=== PATIENT | female | born 1930 | race Caucasian/White ===

== ENCOUNTER 2016-12-19 15:30 | Emergency (ER) | payer MEDICARE, BC ==
[~2016-12-19] VITALS: Ht 157.5 cm; Wt 64.0 kg
[2016-12-19 15:32] VITALS: Ht 157.5 cm; Wt 64.0 kg
[2016-12-19] MEDS ORDERED: METOPROLOL 50 MG TAB PO ONE (16:00)
[2016-12-19] MEDS ORDERED: ASPIRIN 81 MG TAB PO ONE (16:00)
[2016-12-19] MEDS ORDERED: APIX2.5T PO (16:10)
[2016-12-19] MEDS ORDERED: METO-335 PO (16:11)
[2016-12-19] MEDS ORDERED: FENO160T13 PO (16:12)
[2016-12-19] MEDS ORDERED: METF500T4 PO (16:13)
[2016-12-19] MEDS ORDERED: ASPI-664 PO (16:14)
--- NOTE | 2016-12-19 16:14 | RADRPT ---
PROCEDURE: XR Chest 1 View. CLINICAL INDICATION: Shortness of breath. Double pain. TECHNIQUE: AP view of the chest was obtained. COMPARISON: None. FINDINGS: The heart size is within normal limits. Calcified atherosclerosis is noted in the aorta. Calcified heart valve is identified. No consolidations are identified. No pneumothorax is seen. Subsegmental atelectasis is noted in the bilateral lower lobes. Osseous structures are intact. IMPRESSION: Calcified atherosclerosis in the aorta. Subsegmental atelectasis in the bilateral lower lobes. RPTAT: AA .Ja Bone MD, MD Date Time Electronically viewed and signed by .Ja Bone MD, on 12/19/2016 16:13 .P/
[2016-12-19] MEDS ORDERED: TRAV4OP25 BOTH EYES (16:15)
[2016-12-19] MEDS ORDERED: VIT1CAPS10 PO (16:16)
[2016-12-19] MEDS ORDERED: ALBU18HF INHALATION (16:18)
[2016-12-19 16:26] LABS: BASOPHIL # 0.1 10^3/ul (0.0-0.1); BASOPHILS % 0.9 % (0.0-2.0); EOSINOPHILS # 0.1 10^3/ul (0.0-0.5); EOSINOPHILS % 2.4 % (0.0-7.0); HEMATOCRIT 35.5 % (37.0-47.0); HEMOGLOBIN 10.9 g/dl (12.0-16.0); LYMPHOCYTES # 1.2 10^3/ul (0.8-2.9); LYMPHOCYTES % 21.5 % (15.0-51.0); MEAN CORPUSCULAR HEMOGLOBIN 26.7 pg (29.0-33.0); MEAN CORPUSCULAR HGB CONC 30.7 g/dl (32.0-37.0); MEAN PLATELET VOLUME 11.7 fl (7.4-10.4); MONOCYTE # 0.5 10^3/ul (0.3-0.9); MONOCYTES % 9.8 % (0.0-11.0); NEUTROPHIL # 3.5 10^3/ul (1.6-7.5); NEUTROPHILS % 65.2 % (39.0-77.0); PLATELET COUNT 274 10^3/UL (140-415); RED BLOOD COUNT 4.08 10^6/ul (4.20-5.40); RED CELL DISTRIBUTION WIDTH 15.2 % (11.5-14.5); WHITE BLOOD COUNT 5.4 10^3/ul (4.8-10.8)
[2016-12-19 16:44] LABS: INR 0.97; PROTIME 12.9 Sec (12.2-14.2)
[2016-12-19 16:47] LABS: ALBUMIN 4.5 g/dl (3.3-4.9); ALBUMIN/GLOBULIN RATIO 1.45; BILIRUBIN,INDIRECT 0.1 mg/dl (0-1.1); BILIRUBIN,TOTAL 0.1 mg/dl (0.2-1.3); CALCIUM 10.2 mg/dl (8.4-10.2); CREATININE 1.33 mg/dl (0.44-1.00); POTASSIUM 4.1 mmol/L (3.5-5.1); TOTAL PROTEIN 7.6 g/dl (6.1-8.1)
[2016-12-19 16:58] LABS: TROPONIN-I 0.089 ng/ml (0.00-0.12)
[2016-12-19] MEDS ORDERED: SOD CHLORIDE 0.9% 1,000 ML IV ONE (17:00)
--- NOTE | 2016-12-19 17:09 | ERD ---
ER Documentation Chief Complaint Chief Complaint feels her heart racing,hx of afib,has valve replaced in 2015 HPI 86-year-old woman with a history of palpitations/SVT and bovine cardiac valve replacement presents with palpitations beginning about 3 hours prior to arrival. She states she has not used her morning medications for some reason, which include metoprolol that she is prescribed to take every day. She denies chest pain or shortness of breath, no fevers or chills, no cough, no calf or leg swelling, no headache or blurry vision. Last episode was about 9 months ago. ROS All systems reviewed and are negative except as per history of present illness. Medications Home Meds Reported Medications Albuterol Sulfate* (Ventolin HFA*) 18 Gm Hfa.aer.ad, 1 PUFF INHALATION Q6H Y for NEEDED, #1 INHALER 12/19/16 Vit A/Vit C/Vit E/Zinc/Copper (Preservision Areds Softgel) 1 Each Capsule, 1 EACH PO BID, CAP 12/19/16 Travoprost* (Travatan*) 0.004%-2.5 Ml Opht, 1 DROP BOTH EYES QHS, #1 BOTTLE 12/19/16 Aspirin* (Aspirin* EC) 81 Mg Tablet.dr, 81 MG PO DAILY, TAB 12/19/16 Metformin Hcl* (Metformin Hcl*) 500 Mg Tablet, 500 MG PO WITH BREAKFAST DINNE, # 60 TAB 12/19/16 Fenofibrate, Micronized* (Fenofibrate*) 160 Mg Tablet, 160 MG PO DAILY, TAB 12/19/16 Metoprolol Succinate* (Toprol XL*) 25 Mg Tab.sr.24h, 25 MG PO DAILY, #30 TAB 12/19/16 Apixaban* (Eliquis*) 2.5 Mg Tablet, 2.5 MG PO BID, TAB 12/19/16 Allergies Allergies: Coded Allergies: Glbdoyw-Fvl-Ukj Reductase Inhibitor (Unverified Allergy, Unknown, 12/19/16 ) PMhx/Soc Cardiac valve replacement, COPD, hypertension, CAD History of Surgery: Yes (aortic valve replacement) Anesthesia Reaction: No Hx Neurological Disorder: No Hx Respiratory Disorders: No Hx Cardiac Disorders: Yes (htn) Hx Psychiatric Problems: No Hx Miscellaneous Medical Probl: No Hx Alcohol Use: No Hx Substance Use: No Hx Tobacco Use: No Smoking Status: Former smoker FmHx Family History: No diabetes Physical Exam Vitals Vital Signs Date Time Temp Pulse Resp B/P Pulse Ox O2 Delivery O2 Flow Rate FiO2 12/19/16 18:19 68 18 117/52 98 Room Air 12/19/16 16:45 65 18 125/55 98 Room Air 12/19/16 15:32 98.4 138 20 196/91 96 Physical Exam GENERAL: Well-developed, well-nourished, appears dehydrated HEENT: Dry mucous membranes, pink conjunctiva, no cervical spine tenderness or step-off deformities, no goiter, no jaundice or icterus, extraocular movements intact without pain. No submandibular induration, and no pharyngeal erythema NEURO: Alert and oriented 3, cranial nerves II through XII intact bilaterally, pupils equal round reactive to light, no focal deficits or facial asymmetry, sensation intact distally Strength 5/5 in upper and lower extremities bilaterally CARDIAC: Tachycardic and regular, no murmurs rubs or gallops LUNGS: Clear bilaterally no wheezing crackles or stridor ABDOMEN: Soft nontender, no guarding, no rigidity, no rebound, no psoas sign no obturator sign. Normoactive bowel sounds SKIN: Warm and dry to touch, no abrasions, contusions, or hematomas, no lacerations, no ecchymosis, no target lesions, and without ulcers EXTREMITIES: No clubbing cyanosis or edema, calves are bilaterally symmetrical, no Homans sign, no popliteal cord sign. Distal pulses equal and bilateral PSYCH: Normal affect without agitation or irritability Result Diagram: 12/19/16 1555 12/19/16 1555 Results 24 hrs Laboratory Tests Test 12/19/16 15:55 12/19/16 16:00 White Blood Count 5.410^3/ul Red Blood Count 4.0810^6/ul Hemoglobin 10.9g/dl Hematocrit 35.5% Mean Corpuscular Volume 87.0fl Mean Corpuscular Hemoglobin 26.7pg Mean Corpuscular Hemoglobin Concent 30.7g/dl Red Cell Distribution Width 15.2% Platelet Count 04819^3/UL Mean Platelet Volume 11.7fl Neutrophils % 65.2% Lymphocytes % 21.5% Monocytes % 9.8% Eosinophils % 2.4% Basophils % 0.9% Nucleated Red Blood Cells % 0.0/100WBC Neutrophils # 3.510^3/ul Lymphocytes # 1.210^3/ul Monocytes # 0.510^3/ul Eosinophils # 0.110^3/ul Basophils # 0.110^3/ul Nucleated Red Blood Cells # 0.010^3/ul Prothrombin Time 12.9Sec Prothrombin Time Ratio 1.0 INR International Normalized Ratio 0.97 Sodium Level 144mmol/L Potassium Level 4.1mmol/L Chloride Level 106mmol/L Carbon Dioxide Level 25mmol/L Anion Gap 17 Blood Urea Nitrogen 44mg/dl Creatinine 1.33mg/dl Glucose Level 246mg/dl Calcium Level 10.2mg/dl Total Bilirubin 0.1mg/dl Direct Bilirubin 0.00mg/dl Indirect Bilirubin 0.1mg/dl Aspartate Amino Transf (AST/SGOT) 23IU/L Alanine Aminotransferase (ALT/SGPT) 23IU/L Alkaline Phosphatase 64IU/L Troponin I 0.089ng/ml B-Type Natriuretic Peptide 1010PG/ML Total Protein 7.6g/dl Albumin 4.5g/dl Globulin 3.10g/dl Albumin/Globulin Ratio 1.45 Lipase 195U/L Urine Color STRAW Urine Clarity CLEAR Urine pH 7.0 Urine Specific [place] 1.010 Urine Ketones NEGATIVEmg/dL Urine Nitrite NEGATIVEmg/dL Urine Bilirubin NEGATIVEmg/dL Urine Urobilinogen NEGATIVEmg/dL Urine Leukocyte Esterase 1+[place]/ul Urine Microscopic RBC 1/HPF Urine Microscopic WBC 5/HPF Urine Squamous Epithelial Cells FEW/HPF Urine Bacteria FEW/HPF Urine Hemoglobin NEGATIVEmg/dL Urine Glucose 2+mg/dL Urine Total Protein NEGATIVEmg/dl Current Medications Medications (Trade) Dose Ordered Sig/Miguel Angel Route PRN Reason Start Time Stop Time Status Last Admin Dose Admin Metoprolol Tartrate (Lopressor) 50 mg ONCE ONCE PO 12/19/16 16:00 12/19/16 16:01 DC 12/19/16 16:01 Aspirin 162 mg 162 mg ONCE ONCE PO 12/19/16 16:00 12/19/16 16:01 DC 12/19/16 16:00 Sodium Chloride (NS) 1,000 ml @ 1,000 mls/hr Q1H ONCE IV 12/19/16 17:00 12/19/16 17:59 DC 12/19/16 17:02 Procedures/MDM IV line was established patient was placed on cardiac cath technician rhythm strip revealed a narrow complex tachycardia at about 200 bpm. Patient was afebrile. EKG performed, read by me revealed a supraventricular tachycardia narrow complex at 149 bpm, normal axis, no concerning ST elevations or depressions noted. I administered metoprolol 50 mg p.o. 1, as she did not use her morning metoprolol dose. Palpitations resolved immediately. EKG #2 performed, read by me revealed a normal sinus rhythm 85 bpm, normal axis , narrow QRS complex, no concerning ST elevations or depressions noted. I administered 1 L normal saline intravenously for dehydration. CBC was unremarkable, electrolytes revealed dehydration with a BUN/creatinine of 44/1.3, liver function tests are normal, troponin was negative, urinalysis negative for infection. Differential diagnoses considered, included but not limited to acute coronary syndrome, pulmonary embolism, aortic dissection, abdominal aortic aneurysm, sepsis, stroke, meningitis, encephalitis, pneumonia, appendicitis, cholecystitis , bowel obstruction, pyelonephritis, nephrolithiasis, cystitis, as well as metabolic, hematologic, and electrolyte abnormalities. As well as abscess, cellulitis, fractures, and dislocations. Patient feels much better at this time, and vital signs are normal, symptoms have improved. I did give strict instructions to return to the ED if symptoms continue or worsen, patient will otherwise follow-up with primary care physician. Patient understood instructions and agreed to plan. Disclaimer: Inadvertent spelling and grammatical errors are likely due to EHR/ dictation software use and do not reflect on the overall quality of patient care. Also, please note that the electronic time recorded on this note does not necessarily reflect the actual time of the patient encounter. Departure Diagnosis: Primary Impression: SVT (supraventricular tachycardia) Additional Impression: Dehydration Condition: PRAVEEN Zapata MD Dec 19, 2016 17:09
[2016-12-19 17:41] LABS: ADD UMIC YES; UR ASCORBIC ACID NEGATIVE (NEGATIVE); UR BACTERIA FEW /HPF (NONE SEEN); UR BILIRUBIN (Dip) NEGATIVE (NEGATIVE); UR BLOOD (Dip) NEGATIVE (NEGATIVE); UR CLARITY CLEAR (CLEAR); UR COLOR STRAW (YELLOW); UR GLUCOSE (Dip) 2+ mg/dL (NEGATIVE); UR KETONES (Dip) NEGATIVE (NEGATIVE); UR LEUKOCYTE ESTERASE (Dip) 1+ Leu/ul (NEGATIVE); UR NITRITE (Dip) NEGATIVE (NEGATIVE); UR RBC 1 /HPF (0-5); UR SQUAMOUS EPITHELIAL CELL FEW /HPF (FEW); UR TOTAL PROTEIN (Dip) NEGATIVE (NEGATIVE); UR UROBILINOGEN (Dip) NEGATIVE (NEGATIVE)
[2016-12-19 18:19] VITALS: BP 117/52; PULSE 68; RESP 18
== END 2016-12-19 18:21 | disposition home or self-care (01) ==
LOC: E/R 15:30
DX: I47.1 Supraventricular tachycardia (principal); R40.2252 Coma scale, best verbal response, oriented, at arrival to emergency department; E86.0 Dehydration; I10 Essential (primary) hypertension; J44.9 Chronic obstructive pulmonary disease, unspecified; I25.10 Atherosclerotic heart disease of native coronary artery without angina pectoris; R40.2142 Coma scale, eyes open, spontaneous, at arrival to emergency department; R40.2362 Coma scale, best motor response, obeys commands, at arrival to emergency department; Z79.82 Long term (current) use of aspirin; Z79.01 Long term (current) use of anticoagulants; Z87.891 Personal history of nicotine dependence
CPT/HCPCS: 36415; 71010; 80053; 81001; 83690; 83880; 84484; 85025; 85610; 99285; J7030

== ENCOUNTER 2017-11-21 09:25 | Emergency (ER) | END 2017-11-21 12:45 | disposition home or self-care (01) ==

== ENCOUNTER 2017-11-25 22:10 | Emergency (ER) | END 2017-11-26 02:05 | disposition home or self-care (01) ==

== ENCOUNTER 2017-11-28 12:00 | Emergency (ER) | END 2017-11-28 14:08 | disposition home or self-care (01) ==

== ENCOUNTER 2017-11-28 21:33 | Emergency (ER) | END 2017-11-29 00:29 | disposition home or self-care (01) ==

== ENCOUNTER 2018-04-19 20:32 | Inpatient (IN) | payer MEDICARE, BC ==
[~2018-04-19] VITALS: Ht 152.4 cm; Wt 63.9 kg
[~2018-04-19 20:32] MED LIST: ALBU18HF INHALATION; APIX2.5T PO; ERGO500013 PO; FENO160T13 PO; METF500T24 PO; METO-448 PO; TRAV4OP25 BOTH EYES; VIT1CAPS10 PO
[2018-04-19] MEDS ORDERED: SOD CHLORIDE 0.9% 500 ML IV STA (21:54)
--- NOTE | 2018-04-20 02:16 | ERD ---
ER Documentation Chief Complaint Chief Complaint CONSTIPATION X 1 WEEK; HEMORRHOIDS VS RECTAL BLEED HPI This is an 87-year-old female such as been constipated for a week and has had a rectal bleed for the past 24 hours. She said she had bright red blood from rectum. Denies fevers chills nausea vomiting. Denies any localized abdominal pain. Denies any other current issues. ROS All systems reviewed and are negative except as per history of present illness. Medications Home Meds Reported Medications Ergocalciferol (Vitamin D2) (VITAMIN D2) 50,000 Unit Capsule, 60238 UNIT PO, CAP Take 1 Capsule by mouth every 1st of the Month 11/26/17 Metoprolol Tartrate* (Lopressor*) 25 Mg Tab, 25 MG PO BID, #60 TAB 11/26/17 Albuterol Sulfate* (Ventolin HFA*) 18 Gm Hfa.aer.ad, 1 PUFF INHALATION Q6H PRN for NEEDED, #1 INHALER 12/19/16 Vit A/Vit C/Vit E/Zinc/Copper (Preservision Areds Softgel) 1 Each Capsule, 1 EAC H PO BID, CAP 12/19/16 Travoprost* (Travatan*) 0.004%-2.5 Ml Opht, 1 DROP BOTH EYES QHS, #1 BOTTLE 12/19/16 Metformin Hcl* (Metformin Hcl*) 500 Mg Tablet, 500 MG PO WITH BREAKFAST DINNE, #60 TAB 12/19/16 Fenofibrate, Micronized* (Fenofibrate*) 160 Mg Tablet, 160 MG PO DAILY, TAB 12/19/16 Apixaban* (Eliquis*) 2.5 Mg Tablet, 2.5 MG PO BID, TAB 12/19/16 Allergies Allergies: Coded Allergies: Pwltmwr-Iod-Bfb Reductase Inhibitor (Unverified Allergy, Unknown, 11/26/17) PMhx/Soc History of Surgery: No Anesthesia Reaction: No Hx Neurological Disorder: No Hx Respiratory Disorders: No Hx Cardiac Disorders: No Hx Psychiatric Problems: No Hx Miscellaneous Medical Probl: No Hx Alcohol Use: No Hx Substance Use: No Hx Tobacco Use: No Smoking Status: Never smoker Physical Exam Vitals Vital Signs Date Temp Pulse Resp B/P (MAP) Pulse Ox O2 O2 Flow FiO2 Time Delivery Rate 04/20/18 96.3 84 18 121/62 98 Room Air 02:12 (81) 04/20/18 96.3 89 18 160/61 98 Room Air 00:08 (94) 04/19/18 96.3 90 21 154/61 99 Room Air 23:19 (92) 04/19/18 96.3 90 18 164/77 99 Room Air 22:30 (106) 04/19/18 96.3 101 18 130/60 99 20:52 (83) Physical Exam Const: No acute distress Head: Atraumatic Eyes: Normal Conjunctiva ENT: Normal External Ears, Nose and Mouth. Neck: Full range of motion. No meningismus. Resp: Clear to auscultation bilaterally Cardio: Regular rate and rhythm, no murmurs Abd: Soft, non tender, non distended. Normal bowel sounds Skin: No petechiae or rashes Back: No midline or flank tenderness Ext: No cyanosis, or edema Neur: Awake and alert Psych: Normal Mood and Affect Result Diagram: 04/19/18221704/19/182217 Results 24 hrs Laboratory Tests Test 04/19/18 22:18 White Blood Count 12.8 10^3/ul Red Blood Count 4.25 10^6/ul Hemoglobin 11.1 g/dl Hematocrit 35.6 % Mean Corpuscular Volume 83.8 fl Mean Corpuscular Hemoglobin 26.1 pg Mean Corpuscular Hemoglobin Concent 31.2 g/dl Red Cell Distribution Width 16.1 % Platelet Count 417 10^3/UL Mean Platelet Volume 10.9 fl Immature Granulocytes % 0.300 % Neutrophils % 85.8 % Lymphocytes % 8.6 % Monocytes % 5.1 % Eosinophils % 0.0 % Basophils % 0.2 % Nucleated Red Blood Cells % 0.0 /100WBC Immature Granulocytes # 0.040 10^3/ul Neutrophils # 11.0 10^3/ul Lymphocytes # 1.1 10^3/ul Monocytes # 0.7 10^3/ul Eosinophils # 0.0 10^3/ul Basophils # 0.0 10^3/ul Nucleated Red Blood Cells # 0.0 10^3/ul Prothrombin Time 15.9 Sec Prothrombin Time Ratio 1.2 INR International Normalized Ratio 1.26 Activated Partial Thromboplast Time 31.2 Sec Sodium Level 144 mmol/L Potassium Level 4.3 mmol/L Chloride Level 99 mmol/L Carbon Dioxide Level 23 mmol/L Anion Gap 22 Blood Urea Nitrogen 42 mg/dl Creatinine 1.68 mg/dl Est Glomerular Filtrat Rate mL/min mL/min Glucose Level 161 mg/dl Calcium Level 11.3 mg/dl Total Bilirubin 0.4 mg/dl Direct Bilirubin 0.00 mg/dl Indirect Bilirubin 0.4 mg/dl Aspartate Amino Transf (AST/SGOT) 30 IU/L Alanine Aminotransferase (ALT/SGPT) 9 IU/L Alkaline Phosphatase 54 IU/L Total Protein 8.5 g/dl Albumin 4.6 g/dl Globulin 3.90 g/dl Albumin/Globulin Ratio 1.17 Lipase 87 U/L Current Medications Medications Dose Sig/Miguel Angel Start Time Status Last (Trade) Ordered Route PRN Stop Time Admin Dose Reason Admin Sodium 500 ml @ Q1H STAT 04/19/18 DC 04/19/18 Chloride 500 mls/hr IV 21:54 22:32 04/19/18 22:53 Procedures/MDM Medical decision making: This 87-year-old female who likely has a rectal bleed from an internal hemorrhoid. However, given her advanced age and the rectal bleed and no identifiable source on physical examination I feel the patient is to be admitted for further evaluation and management. Dr. Duncan hospitalist group was notified of admission Departure Diagnosis: Primary Impression: Rectal hemorrhage Condition: BENEDICT Duran Apr 20, 2018 02:16
[2018-04-20] MEDS ORDERED: NACL 0.9% 3 ML SYG IV SCH (02:30)
[2018-04-20] MEDS ORDERED: ACETAMINOPHEN 325 MG TAB PO PRN (02:30)
[2018-04-20] MEDS ORDERED: ONDANSETRON 4 MG INJ IV PRN (02:30)
--- NOTE | 2018-04-20 02:57 | HP ---
Date/Time of Note Date/Time of Note DATE: 04/20/18 TIME: 02:56 Assessment/Plan VTE Prophylaxis Pharmacological prophylaxis: other Lines/Catheters IV Catheter Type (from Nrs): Saline Lock Assessment/Plan Hospital Course Objective Physical exam General: Patient is laying in bed and answers questions appropriately Mentation: Patient is alert and oriented 4, Head: Normocephalic atraumatic Eyes: EOMI, pupils reactive to light Neck: Supple, nontender, midline Respiratory: Clear to auscultation bilaterally Cardiovascular: regular rate, no obvious murmurs Gastrointestinal: non-tender to palpation, bowel sounds heard. Neurological: Moves all extremities spontaneously Skin: No new skin lesions Assessment and plan GI bleed -Likely secondary to taking laxatives and on Eliquis, patient likely had a hemorrhoid rupture, hold Eliquis -N.p.o. -IV fluids -GI will be consulted, Dr De La Paz -Hemoglobin is actually severely low for someone who has been bleeding for 2 days -Hemoglobin hematocrit every 6 hours for 1 day A. fib -Continue metoprolol when tolerating orals -Hold Eliquis for now -Monitor Diabetes mellitus -Insulin sliding scale Hypertriglyceridemia -Continue fenofibrate Asthma -DuoNeb as needed Anemia -Very mild, likely secondary to above GI bleed Leukocytosis, very mild -Monitor, likely reactive Acute kidney injury versus chronic kidney disease -Possibly secondary to volume depletion his patient has been having diarrhea and GI bleed and likely high volume loss -IV fluid -Monitor, if does not resolve, I recommend consulting cardiology for day team Disposition -GI consultation pending, keep n.p.o., IV fluid Result Diagram: 04/19/188 04/19/18 2218 Results 24hrs Laboratory Tests Test 04/19/18 22:18 White Blood Count 12.8 #H Red Blood Count 4.25 Hemoglobin 11.1 L Hematocrit 35.6 L Mean Corpuscular Volume 83.8 Mean Corpuscular Hemoglobin 26.1 L Mean Corpuscular Hemoglobin Concent 31.2 L Red Cell Distribution Width 16.1 H Platelet Count 417 #H Mean Platelet Volume 10.9 H Immature Granulocytes % 0.300 Neutrophils % 85.8 H Lymphocytes % 8.6 L Monocytes % 5.1 Eosinophils % 0.0 Basophils % 0.2 Nucleated Red Blood Cells % 0.0 Immature Granulocytes # 0.040 H Neutrophils # 11.0 H Lymphocytes # 1.1 Monocytes # 0.7 Eosinophils # 0.0 Basophils # 0.0 Nucleated Red Blood Cells # 0.0 Prothrombin Time 15.9 H Prothrombin Time Ratio 1.2 INR International Normalized Ratio 1.26 Activated Partial Thromboplast Time 31.2 Sodium Level 144 Potassium Level 4.3 Chloride Level 99 Carbon Dioxide Level 23 Anion Gap 22 H Blood Urea Nitrogen 42 H Creatinine 1.68 H Est Glomerular Filtrat Rate mL/min Glucose Level 161 Calcium Level 11.3 H Total Bilirubin 0.4 Direct Bilirubin 0.00 Indirect Bilirubin 0.4 Aspartate Amino Transf (AST/SGOT) 30 Alanine Aminotransferase (ALT/SGPT) 9 L Alkaline Phosphatase 54 Total Protein 8.5 H Albumin 4.6 Globulin 3.90 H Albumin/Globulin Ratio 1.17 Lipase 87 HPI/ROS Admit Date/Time Admit Date/Time Apr 20, 2018 at 01:53 Hx of Present Illness Patient is a female with a past medical history of A. fib on Eliquis, asthma, diabetes, triglyceridemia presents to [facility] for rectal bleed. Patient has been recently constipated all week and has been taking laxatives on a daily basis for approximately 5 days. Patient states that 2 days ago she noticed that she started to have pain with defecation and there was bright red blood with all her diarrhea bowel movements. Patient states that she originally thought that it would go away which is why she did not come in immediately. She noticed that it was not helping and subsequently came in today. Other than the pain associated with actual defecation, patient has no acute complaints at this time other than chronic issues. Patient denies chest pain, shortness of breath, abdominal pain, leg pain, headache. Patient does state that there is some residual pain from a recent shingles episode as well as a mild cough which causes some chest discomfort. PMH/Family/Social Past Medical History Medications Current Medications Sodium Chloride 1,000 ml @ 75 mls/hr [id number] IV ; Start 04/20/18 at 02:17 IV Flush (NS 3 ml) 3 ml PER PROTOCOL IV ; Start 04/20/18 at 02:30 Ondansetron HCl (Zofran Inj) 4 mg Q6H PRN IV NAUSEA/VOMITING; Start 04/20/18 at 02:30 Acetaminophen (Tylenol Tab) 650 mg Q6H PRN PO .PAIN 1-3 OR TEMP; Start 04/20/18 at 02:30 Acetaminophen/ Hydrocodone Bitart ([place] (5/325)) 1 tab Q6H PRN PO .PAIN 4-6; Start 04/20/18 at 02:30 Diagnostic Test (Pha) (Accu-Chek) 1 ea 02 XX ; Start 04/21/18 at 02:00 Insulin Aspart (Novolog Insulin Pen) NOVOLOG *MILD* ALGORITHM WITH MEALS BEDTIME SC ; Start 04/20/18 at 08:00 Metoprolol Tartrate (Lopressor) 25 mg BID PO ; Start 04/20/18 at 09:00 Latanoprost (Xalatan) 1 drop QHS BOTH EYES ; Start 04/20/18 at 21:00 Fenofibrate (Tricor) 145 mg DAILY PO ; Start 04/20/18 at 09:00 Miscellaneous Information 1 ea NOTE XX ; Start 04/20/18 at 03:00 Glucose (Glutose) 15 gm Q15M PRN PO DECREASED GLUCOSE; Start 04/20/18 at 03:00 Glucose (Glutose) 22.5 gm Q15M PRN PO DECREASED GLUCOSE; Start 04/20/18 at 03:00 Dextrose (D50w Syringe) 25 ml Q15M PRN IV DECREASED GLUCOSE; Start 04/20/18 at 03:00 Dextrose (D50w Syringe) 50 ml Q15M PRN IV DECREASED GLUCOSE; Start 04/20/18 at 03:00 Glucagon (Glucagen) 1 mg Q15M PRN IM DECREASED GLUCOSE; Start 04/20/18 at 03:00 Glucose (Glutose) 15 gm Q15M PRN BUCCAL DECREASED GLUCOSE; Start 04/20/18 at 03:00 Albuterol/ Ipratropium (Duoneb) 3 ml Q2H RESP THERAPY PRN HHN shortness of breath; Start 04/20/18 at 03:00 Coded Allergies: Hzfcpby-Ugj-Lht Reductase Inhibitor (Unverified Allergy, Unknown, 11/26/17) Social History Smoking Status: Never smoker Exam/Review of Systems Vital Signs Vitals Vital Signs Date Temp Pulse Resp B/P (MAP) Pulse Ox O2 O2 Flow FiO2 Time Delivery Rate 04/20/18 96.3 84 18 121/62 98 Room Air 02:12 (81) PRAVEEN ZHANG Apr 20, 2018 02:57
[2018-04-20 02:58] VITALS: BP 160/74; PULSE 91; RESP 20
[2018-04-20 03:00] VITALS: Ht 152.4 cm; Wt 63.9 kg
[2018-04-20] MEDS ORDERED: GLUCOSE GEL 15 GRAM TUBE BUCCAL PRN (03:00)
[2018-04-20] MEDS ORDERED: GLUCOSE GEL 15 GRAM TUBE PO PRN ×2 (03:00)
[2018-04-20] MEDS ORDERED: GUAIFENESIN/CODEINE 5ML CUP PO PRN (03:00)
[2018-04-20] MEDS ORDERED: ALBUTEROL/IPRATROPIUM (NEB) 3 ML AMP HHN PRN (03:00)
[2018-04-20] MEDS ORDERED: DEXTROSE 50% 50 ML SYRINGE IV PRN ×2 (03:00)
[2018-04-20] MEDS ORDERED: GLUCAGON 1 MG INJ IM PRN (03:00)
[2018-04-20] MEDS: SOD CHLORIDE 0.9% 1,000 ML IV SCH ×2 (03:35→16:47)
[2018-04-20 04:31] VITALS: BP 150/87
[2018-04-20] MEDS: Insulin NOVOLOG SS MILD Algorithm (NPO/TPN/ENTERAL FEEDS) SC SCH ×3 (06:00→18:00)
[2018-04-20] MEDS ORDERED: INSULIN ASPART [NOVOLOG] 3 ML PEN SC SCH ×3 (06:00→21:00)
[2018-04-20 08:16] VITALS: BP 144/67; PULSE 81; RESP 18
[2018-04-20] MEDS: METOPROLOL 25 MG TAB PO SCH ×2 (08:32→21:15)
[2018-04-20] MEDS: FENOFIBRATE 145 MG TAB PO SCH (08:32)
--- NOTE | 2018-04-20 10:22 | QN ---
Documentation Comment 87-year-old female who was admitted earlier today with with rectal bleed that started 2 days ago after a week long history of constipation. She also has the following comorbidities and is being admitted for further management. She 's currently having severe rectal pain while trying to have a BM 1. Rectal bleed/hematochezia, no melena? with severe anodynia 2. History of atrial fibrillation, was on anticoagulation prior to admission 3. Hypertension with suboptimal control 4. Hypochromic microcytic anemia likely secondary to #1 5. Leukocytosis likely reactive 6. Acute renal insufficiency rule out underlying CKD 7. Prediabetes with hemoglobin A1c of 6.3 was on metformin at home 8. History of glaucoma 9. History of dyslipidemia 10. Constipation Plan: Continue supportive care, pain control, mineral oil enema, continue gentle fluid hydration, await GI consultation and recommendations Transfusion as needed Continue supportive care EMMY GARCIA. Apr 20, 2018 10:22
[2018-04-20] MEDS: POLYETHYLENE GLYCOL 17 GM PACKET PO SCH (11:32)
[2018-04-20] MEDS: DOCUSATE SODIUM 100 MG CAP PO SCH ×2 (11:32→21:15)
[2018-04-20] MEDS ORDERED: morphine 2 MG INJ IV STA (12:59)
--- NOTE | 2018-04-20 13:14 | CONS ---
Assessment/Plan Assessment/Plan Assessment/Plan (Daily) Summary Assessment and Plan: Assessment: Rectal bleed Normocytic anemia Coagulopathy, mild Atrial Fibrillation -Eliquis on hold Diabetes mellitus COPD Leukocytosis Renal insufficiency History recent of Shingles- s/p treatment Plan: Clear liquid diet today NPO after 04/21/18 0800 Colonoscopy tomorrow Endoscopy - risks/benefits/alternatives/indications of procedure and sedation/anesthesia discussed with patient who states understanding and gives informed consent to proceed. Mineral oil enema x1 Patient seen in collaboration with Dr. Martinez Consultation Date/Type/Reason Admit Date/Time Apr 20, 2018 at 01:53 Date of Consultation: Apr 20, 2018 Type of Consult GI Reason for Consultation Hematochezia Date/Time of Note DATE: 04/20/18 TIME: 13:06 Hx of Present Illness This an 87-year-old female with past medical history of COPD, diabetes, high triglycerides, atrial fibrillation currently on Eliquis who presented to [facility] for rectal bleeding. Patient states she is been complaining of constipation after taking tyelnol #3 for shingle pain, she started taking laxatives to help with the constipation for the past week. about 2 days ago she noticed bright red blood per rectum with her stools which was described as diarrhea secondary to laxative use. Rectal bleeding did not improve, she also c/o weakness and fatigue. She came to the ED for further evaluation (Of note she has never had a colonoscopy or has a known family hist ory of colon cancer) With labs today mild leukocytosis noted WBC 12.0, HGB in the 9's decrease from yesterday, normal plt, INR 1.26, elevated CR 1.38 which has improved from yesterday. Currently pt c/o rectal pain with exam noted hard stool, mineral oil enema has been ordered. She also c/o nausea without vomiting, she denies abd pain, melena, or pyrosis. No unintentional weight lass has been noted. Given clinical picture we will monitor labs and plan for colonoscopy tomorrow. Reviewed risks/benefits of sedation/procedure with patient and her daughter, understanding was verbalized and patient agrees to procedure.. Review of Systems: A 12 system, review was conducted and is negative except as noted in the HPI or here. Past Medical History Home Meds Reported Medications Ergocalciferol (Vitamin D2) (VITAMIN D2) 50,000 Unit Capsule, 09748 UNIT PO, CAP Take 1 Capsule by mouth every 1st of the Month 11/26/17 Metoprolol Tartrate* (Lopressor*) 25 Mg Tab, 25 MG PO BID, #60 TAB 11/26/17 Albuterol Sulfate* (Ventolin HFA*) 18 Gm Hfa.aer.ad, 1 PUFF INHALATION Q6H PRN for NEEDED, #1 INHALER 12/19/16 Vit A/Vit C/Vit E/Zinc/Copper (Preservision Areds Softgel) 1 Each Capsule, 1 EACH PO BID, CAP 12/19/16 Travoprost* (Travatan*) 0.004%-2.5 Ml Opht, 1 DROP BOTH EYES QHS, #1 BOTTLE 12/19/16 Metformin Hcl* (Metformin Hcl*) 500 Mg Tablet, 500 MG PO WITH BREAKFAST DINNE, #60 TAB 12/19/16 Fenofibrate, Micronized* (Fenofibrate*) 160 Mg Tablet, 160 MG PO DAILY, TAB 12/19/16 Apixaban* (Eliquis*) 2.5 Mg Tablet, 2.5 MG PO BID, TAB 12/19/16 Medications Current Medications Sodium Chloride 1,000 ml @ 75 mls/hr [id number] IV Last administered on 04/20/18at 03:35; Admin Dose 75 MLS/HR; Start 04/20/18 at 02:17 IV Flush (NS 3 ml) 3 ml PER PROTOCOL IV ; Start 04/20/18 at 02:30 Ondansetron HCl (Zofran Inj) 4 mg Q6H PRN IV NAUSEA/VOMITING; Start 04/20/18 at 02:30 Acetaminophen (Tylenol Tab) 650 mg Q6H PRN PO .PAIN 1-3 OR TEMP; Start 04/20/18 at 02:30 Acetaminophen/ Hydrocodone Bitart ([place] (5/325)) 1 tab Q6H PRN PO .PAIN 4-6; Start 04/20/18 at 02:30 Diagnostic Test (Pha) (Accu-Chek) 1 ea 02 XX ; Start 04/21/18 at 02:00 Metoprolol Tartrate (Lopressor) 25 mg BID PO ; Start 04/20/18 at 09:00 Latanoprost (Xalatan) 1 drop QHS BOTH EYES ; Start 04/20/18 at 21:00 Fenofibrate (Tricor) 145 mg DAILY PO ; Start 04/20/18 at 09:00 Miscellaneous Information 1 ea NOTE XX ; Start 04/20/18 at 03:00 Glucose (Glutose) 15 gm Q15M PRN PO DECREASED GLUCOSE; Start 04/20/18 at 03:00 Glucose (Glutose) 22.5 gm Q15M PRN PO DECREASED GLUCOSE; Start 04/20/18 at 03:00 Dextrose (D50w Syringe) 25 ml Q15M PRN IV DECREASED GLUCOSE; Start 04/20/18 at 03:00 Dextrose (D50w Syringe) 50 ml Q15M PRN IV DECREASED GLUCOSE; Start 04/20/18 at 03:00 Glucagon (Glucagen) 1 mg Q15M PRN IM DECREASED GLUCOSE; Start 04/20/18 at 03:00 Glucose (Glutose) 15 gm Q15M PRN BUCCAL DECREASED GLUCOSE; Start 04/20/18 at 03:00 Albuterol/ Ipratropium (Duoneb) 3 ml Q2H RESP THERAPY PRN HHN shortness of breath; Start 04/20/18 at 03:00 Guaifenesin/ Codeine Phosphate (Robitussin Ac Liquid Cup) 5 ml Q4H PRN PO cough; Start 04/20/18 at 03:00 Insulin Aspart (Novolog Insulin Pen) (Adult SC Insulin - Mild Algorithm)... Q6 SC ; Start 04/20/18 at 06:00 Polyethylene Glycol (Miralax) 17 gm DAILY PO Last administered on 04/20/18at 11:32; Admin Dose 17 GM; Start 04/20/18 at 10:30 Docusate Sodium (Colace) 100 mg BID PO Last administered on 04/20/18at 11:32; Admin Dose 100 MG; Start 04/20/18 at 10:30 Mineral Oil (Fleet Mineral Oil Enema) 133 ml NOW ONCE VT ; Start 04/20/18 at 14:30; Stop 04/20/18 at 14:31 Allergies: Coded Allergies: Vitgqqk-Qsn-Qbu Reductase Inhibitor (Unverified Allergy, Unknown, 11/26/17) Social History Smoking Status: Former smoker Exam/Review of Systems Exam Vitals Vital Signs Date Temp Pulse Resp B/P (MAP) Pulse Ox O2 O2 Flow FiO2 Time Delivery Rate 2/18/19 98.8 81 18 144/67 97 Room Air 08:16 (92) Intake and Output 04/19/18 04/19/18 04/20/18 1515:00 23:00 07:00 IntakeIntake Total 150 ml BalanceBalance 150 ml PHYSICAL EXAMINATION: GENERAL: Well developed, well nourished, alert & oriented x 3, in no acute di stress SKIN: No lesions EYES: Pupils equal reactive to light, no discharge. EARS/NOSE AND THROAT: Ears normal, nose normal, oropharynx normal NECK: Supple, no masses CHEST: Inspection within normal limits. CARDIOVASCULAR: Heart: Irregular rate and rhythm RESPIRATORY: Lungs clear to auscultation GASTROINTESTINAL AND LIVER: Abdomen: Soft, non tenderness, non-distended, no hernias, no masses, no organomegaly, no ascites, no guarding, no rebound tenderness, normoactive bowel sounds. Rectal: hard stool noted GENITOURINARY:Female genitalia within normal limits. Results Result Diagram: 04/20/18 0547 04/20/18 0547 Results 24hrs Laboratory Tests Test 04/19/18 22:18 04/20/18 05:47 04/20/18 05:59 04/20/18 07:55 White Blood Count 12.8 #H 12.0 H Red Blood Count 4.25 3.58 L Hemoglobin 11.1 L 9.5 L Hematocrit 35.6 L 29.9 L Mean Corpuscular 83.8 83.5 Volume Mean Corpuscular 26.1 L 26.5 L Hemoglobin Mean Corpuscular 31.2 L 31.8 L Hemoglobin Concent Red Cell 16.1 H 16.2 H Distribution Width Platelet Count 417 #H 338 Mean Platelet Volume 10.9 H 10.9 H Immature 0.300 0.500 H Granulocytes % Neutrophils % 85.8 H 75.3 Lymphocytes % 8.6 L 13.5 L Monocytes % 5.1 9.9 Eosinophils % 0.0 0.4 Basophils % 0.2 0.4 Nucleated Red Blood 0.0 0.0 Cells % Immature 0.040 H 0.060 H Granulocytes # Neutrophils # 11.0 H 9.0 H Lymphocytes # 1.1 1.6 Monocytes # 0.7 1.2 H Eosinophils # 0.0 0.1 Basophils # 0.0 0.1 Nucleated Red Blood 0.0 0.0 Cells # Prothrombin Time 15.9 H Prothrombin Time 1.2 Ratio INR International 1.26 Normalized Ratio Activated 31.2 Partial Thromboplast Time Sodium Level 144 143 Potassium Level 4.3 4.1 Chloride Level 99 105 Carbon Dioxide Level 23 24 Anion Gap 22 H 14 #H Blood Urea Nitrogen 42 H 34 H Creatinine 1.68 H 1.38 H Est Glomerular Filtrat Rate mL/min Glucose Level 161 105 # Calcium Level 11.3 H 10.0 Total Bilirubin 0.4 0.3 Direct Bilirubin 0.00 0.00 Indirect Bilirubin 0.4 0.3 Aspartate Amino 30 23 Transf (AST/SGOT) Alanine 9 L 19 Aminotransferase (AL T/SGPT) Alkaline Phosphatase 54 42 Total Protein 8.5 H 6.8 # Albumin 4.6 3.6 # Globulin 3.90 H 3.20 Albumin/Globulin 1.17 1.12 Ratio Lipase 87 Hemoglobin A1c 6.1 H Magnesium Level 1.8 Iron Level 34 L Total Iron Binding 279 Capacity Percent Iron 12 L Saturation Bedside Glucose 92 117 Test 04/20/18 11:36 Bedside Glucose 108 Medications Medication Current Medications Sodium Chloride 1,000 ml @ 75 mls/hr [id number] IV Last administered on 04/20/18at 03:35; Admin Dose 75 MLS/HR; Start 04/20/18 at 02:17 IV Flush (NS 3 ml) 3 ml PER PROTOCOL IV ; Start 04/20/18 at 02:30 Ondansetron HCl (Zofran Inj) 4 mg Q6H PRN IV NAUSEA/VOMITING; Start 04/20/18 at 02:30 Acetaminophen (Tylenol Tab) 650 mg Q6H PRN PO .PAIN 1-3 OR TEMP; Start 04/20/18 at 02:30 Acetaminophen/ Hydrocodone Bitart ([place] (5/325)) 1 tab Q6H PRN PO .PAIN 4-6; Start 04/20/18 at 02:30 Diagnostic Test (Pha) (Accu-Chek) 1 ea 02 XX ; Start 04/21/18 at 02:00 Metoprolol Tartrate (Lopressor) 25 mg BID PO ; Start 04/20/18 at 09:00 Latanoprost (Xalatan) 1 drop QHS BOTH EYES ; Start 04/20/18 at 21:00 Fenofibrate (Tricor) 145 mg DAILY PO ; Start 04/20/18 at 09:00 Miscellaneous Information 1 ea NOTE XX ; Start 04/20/18 at 03:00 Glucose (Glutose) 15 gm Q15M PRN PO DECREASED GLUCOSE; Start 04/20/18 at 03:00 Glucose (Glutose) 22.5 gm Q15M PRN PO DECREASED GLUCOSE; Start 04/20/18 at 03:00 Dextrose (D50w Syringe) 25 ml Q15M PRN IV DECREASED GLUCOSE; Start 04/20/18 at 03:00 Dextrose (D50w Syringe) 50 ml Q15M PRN IV DECREASED GLUCOSE; Start 04/20/18 at 03:00 Glucagon (Glucagen) 1 mg Q15M PRN IM DECREASED GLUCOSE; Start 04/20/18 at 03:00 Glucose (Glutose) 15 gm Q15M PRN BUCCAL DECREASED GLUCOSE; Start 04/20/18 at 03:00 Albuterol/ Ipratropium (Duoneb) 3 ml Q2H RESP THERAPY PRN HHN shortness of breath; Start 04/20/18 at 03:00 Guaifenesin/ Codeine Phosphate (Robitussin Ac Liquid Cup) 5 ml Q4H PRN PO cough; Start 04/20/18 at 03:00 Insulin Aspart (Novolog Insulin Pen) (Adult SC Insulin - Mild Algorithm)... Q6 SC ; Start 04/20/18 at 06:00 Polyethylene Glycol (Miralax) 17 gm DAILY PO Last administered on 04/20/18at 11:32; Admin Dose 17 GM; Start 04/20/18 at 10:30 Docusate Sodium (Colace) 100 mg BID PO Last administered on 04/20/18at 11:32; Admin Dose 100 MG; Start 04/20/18 at 10:30 Mineral Oil (Fleet Mineral Oil Enema) 133 ml NOW ONCE VT ; Start 04/20/18 at 14:30; Stop 04/20/18 at 14:31 МАРИЯ HOLLOWAY Apr 20, 2018 13:14
[2018-04-20] MEDS ORDERED: BISACODYL (EC) 5 MG TAB PO ONE (14:00)
[2018-04-20] MEDS ORDERED: MINERAL OIL 133 ML ENEMA PR ONE ×2 (14:00→14:30)
[2018-04-20 14:41] VITALS: BP 139/69; PULSE 81; RESP 17
[2018-04-20] MEDS ORDERED: MAGNESIUM CITRATE 300 ML BTL PO ONE (17:30)
[2018-04-20] MEDS: HYDROCODONE/APAP (5/325) TAB PO PRN (17:54)
[2018-04-20] MEDS ORDERED: POLYETHYLENE GLYCOL 3350 119 GM POWDER PO ONE (18:30)
[2018-04-20 20:00] VITALS: BP 142/90; PULSE 103; RESP 18
[2018-04-20] MEDS: Insulin NOVOLOG SS MILD Algorithm (SS with meals and bedtime) SC SCH (21:00)
[2018-04-20] MEDS: LATANOPROST 0.005% 2.5 ML OPH BOTH EYES SCH (21:14)
[2018-04-21] VITALS (17 sets, daily range): BP systolic 128–166; BP diastolic 59–70; PULSE 58–86; RESP 18–25
[2018-04-21] MEDS: ACCU-CHEK XX SCH (02:00)
[2018-04-21] MEDS ORDERED: POLYETHYLENE GLYCOL 3350 119 GM POWDER PO ONE (06:00)
[2018-04-21] MEDS: Insulin NOVOLOG SS MILD Algorithm (SS with meals and bedtime) SC SCH (07:30)
[2018-04-21] MEDS ORDERED: BISACODYL (EC) 5 MG TAB PO ONE (08:00)
[2018-04-21] MEDS: SOD CHLORIDE 0.9% 1,000 ML IV SCH ×2 (08:09→18:26)
[2018-04-21] MEDS: DOCUSATE SODIUM 100 MG CAP PO SCH ×2 (08:16→20:29)
[2018-04-21] MEDS: POLYETHYLENE GLYCOL 17 GM PACKET PO SCH (08:18)
[2018-04-21] MEDS: FENOFIBRATE 145 MG TAB PO SCH (08:18)
[2018-04-21] MEDS: METOPROLOL 25 MG TAB PO SCH ×2 (08:18→20:29)
[2018-04-21] MEDS: POTASSIUM CHLORIDE 100 ML IVPB SCH ×2 (11:43→15:24)
[2018-04-21] MEDS ORDERED: INSULIN ASPART [NOVOLOG] 3 ML PEN SC SCH (13:00)
[2018-04-21] MEDS ORDERED: PROPOFOL 20 ML ONE (17:00)
--- NOTE | 2018-04-21 17:03 | PREAC ---
Date/Time of Note Date/Time of Note DATE: 04/21/18 TIME: 17:01 Anesthesia Eval and Record Evaluation Time Pre-Procedure Interview DATE: 04/21/18 TIME: 17:01 Age 87 Sex female NPO: 8 hrs Preoperative diagnosis Rectal bleeding Planned procedure Colonoscopy Past Medical History Past Medical History: Includes Cardio: Arrythmia Endo: Diabetes Pulm: COPD Heme: Anemia Surgery & Anesthesia Issues No known issue Meds Anticoagulation: No Beta Ginger within 24 hr: Yes Reported Medications Ergocalciferol (Vitamin D2) (VITAMIN D2) 50,000 Unit Capsule, 65693 UNIT PO, CAP Take 1 Capsule by mouth every 1st of the Month 11/26/17 Metoprolol Tartrate* (Lopressor*) 25 Mg Tab, 25 MG PO BID, #60 TAB 11/26/17 Albuterol Sulfate* (Ventolin HFA*) 18 Gm Hfa.aer.ad, 1 PUFF INHALATION Q6H PRN for NEEDED, #1 INHALER 12/19/16 Vit A/Vit C/Vit E/Zinc/Copper (Preservision Areds Softgel) 1 Each Capsule, 1 EACH PO BID, CAP 12/19/16 Travoprost* (Travatan*) 0.004%-2.5 Ml Opht, 1 DROP BOTH EYES QHS, #1 BOTTLE 12/19/16 Metformin Hcl* (Metformin Hcl*) 500 Mg Tablet, 500 MG PO WITH BREAKFAST DINNE, #60 TAB 12/19/16 Fenofibrate, Micronized* (Fenofibrate*) 160 Mg Tablet, 160 MG PO DAILY, TAB 12/19/16 Apixaban* (Eliquis*) 2.5 Mg Tablet, 2.5 MG PO BID, TAB 12/19/16 Current Medications Sodium Chloride 1,000 ml @ 75 mls/hr [id number] IV Last administered on 04/21/18at 08:09; Admin Dose 75 MLS/HR; Start 04/20/18 at 02:17 IV Flush (NS 3 ml) 3 ml PER PROTOCOL IV ; Start 04/20/18 at 02:30 Ondansetron HCl (Zofran Inj) 4 mg Q6H PRN IV NAUSEA/VOMITING; Start 04/20/18 at 02:30 Acetaminophen (Tylenol Tab) 650 mg Q6H PRN PO .PAIN 1-3 OR TEMP; Start 04/20/18 at 02:30 Acetaminophen/ Hydrocodone Bitart ([place] (5/325)) 1 tab Q6H PRN PO .PAIN 4-6 Last administered on 04/20/18at 17:54; Admin Dose 1 TAB; Start 04/20/18 at 02:30 Diagnostic Test (Pha) (Accu-Chek) 1 ea 02 XX ; Start 04/21/18 at 02:00 Metoprolol Tartrate (Lopressor) 25 mg BID PO Last administered on 04/20/18at 21:15; Admin Dose 25 MG; Start 04/20/18 at 09:00 Latanoprost (Xalatan) 1 drop QHS BOTH EYES Last administered on 04/20/18at 21:14; Admin Dose 1 DROP; Start 04/20/18 at 21:00 Fenofibrate (Tricor) 145 mg DAILY PO ; Start 04/20/18 at 09:00 Miscellaneous Information 1 ea NOTE XX ; Start 04/20/18 at 03:00 Glucose (Glutose) 15 gm Q15M PRN PO DECREASED GLUCOSE; Start 04/20/18 at 03:00 Glucose (Glutose) 22.5 gm Q15M PRN PO DECREASED GLUCOSE; Start 04/20/18 at 03:00 Dextrose (D50w Syringe) 25 ml Q15M PRN IV DECREASED GLUCOSE; Start 04/20/18 at 03:00 Dextrose (D50w Syringe) 50 ml Q15M PRN IV DECREASED GLUCOSE; Start 04/20/18 at 03:00 Glucagon (Glucagen) 1 mg Q15M PRN IM DECREASED GLUCOSE; Start 04/20/18 at 03:00 Glucose (Glutose) 15 gm Q15M PRN BUCCAL DECREASED GLUCOSE; Start 04/20/18 at 03:00 Albuterol/ Ipratropium (Duoneb) 3 ml Q2H RESP THERAPY PRN HHN shortness of breath; Start 04/20/18 at 03:00 Guaifenesin/ Codeine Phosphate (Robitussin Ac Liquid Cup) 5 ml Q4H PRN PO cough; Start 04/20/18 at 03:00 Polyethylene Glycol (Miralax) 17 gm DAILY PO Last administered on 04/21/18at 08:18; Admin Dose 17 GM; Start 04/20/18 at 10:30 Docusate Sodium (Colace) 100 mg BID PO Last administered on 04/20/18at 21:15; Admin Dose 100 MG; Start 04/20/18 at 10:30 Insulin Aspart (Novolog Insulin Pen) (Adult SC Insulin - Mild Algorithm)... Q4 SC ; Start 04/21/18 at 13:00 Meds reviewed: Yes Allergies Coded Allergies: Agjozcn-Wbb-Eup Reductase Inhibitor (Unverified Allergy, Unknown, 11/26/17) Allergies Reviewed: Yes Labs/Studies Labs Reviewed: Reviewed by anesthesiologist Result Diagram: 04/21/18 0550 04/21/18 0550 Laboratory Tests 04/21/18 05:50 test: N/A Pre-procedure Exam Last vitals Vital Signs Date Temp Pulse Resp B/P (MAP) Pulse Ox O2 O2 Flow FiO2 Time Delivery Rate 04/21/18 97.8 84 20 128/64 96 16:39 (85) 04/20/18 Room Air 14:41 Airway: Adequate mouth opening Mallampati: Mallampati II Teeth: Abnormal (No teeth) Lung: Normal Heart: Normal ASA Physical Status ASA physical status: 3 Emergency: None Planned Anesthetic General/MAC: MAC Planned Pain Management Parenteral pain med Pre-operative Attestations Prior to commencing anesthesia and surgery, the patient was re-evaluated, there was verification of: *The patient's identity *The results of appropriate recent lab work and preoperative vital signs *The above evaluation not changing prior to induction *Anesthetic plan, risk benefits, alternative and complications discussed with patient/family; questions answered; patient/family understands, accepts and wishes to proceed. BAILEY ZHANG MD Apr 21, 2018 17:03
[2018-04-21] MEDS ORDERED: FENTAnyl 50 MCG/ML VIAL IV PRN ×3 (17:30)
[2018-04-21] MEDS ORDERED: hydrALAzine 20 MG INJ IV PRN (17:30)
[2018-04-21] MEDS ORDERED: ONDANSETRON 4 MG INJ IV PRN (17:30)
[2018-04-21] MEDS ORDERED: LABETALOL HCL 20MG INJ IV PRN (17:30)
[2018-04-21] MEDS ORDERED: METOCLOPRAMIDE 10 MG INJ IV PRN (17:30)
[2018-04-21] MEDS ORDERED: DIPHENHYDRAMINE 50 MG INJ IV PRN (17:30)
[2018-04-21] MEDS ORDERED: MEPERIDINE 25 MG INJ IV PRN (17:30)
[2018-04-21] MEDS ORDERED: OXYCODONE/ACETAMINOPHEN (5/325) TAB PO PRN ×2 (17:30)
[2018-04-21] MEDS ORDERED: EPHEDrine SULFATE 50 MG/5 ML SYG IV PRN (17:30)
[2018-04-21] MEDS ORDERED: MIDAZOLAM 1 MG/ML 2 ML INJ IV PRN (17:30)
--- NOTE | 2018-04-21 17:44 | HPN ---
Date/Time of Note Date/Time of Note DATE: 04/21/18 TIME: 17:44 Interval H&P Admission Note Pt. seen H&P reviewed: No system changes PAWAN HA Apr 21, 2018 17:44
--- NOTE | 2018-04-21 19:11 | PAC ---
Date/Time of Note Date/Time of Note DATE: 04/21/18 TIME: 19:11 Post-Anesthesia Notes Post-Anesthesia Note Last documented vital signs Vital Signs Date Temp Pulse Resp B/P (MAP) Pulse Ox O2 O2 Flow FiO2 Time Delivery Rate 04/21/18 68 20 154/64 96 Nasal 2.0 18:33 (94) Cannula 04/21/18 98.0 17:44 Activity: WNL Respiratory function: WNL Cardiovascular function: WNL Mental status: Baseline Pain reasonably controlled: Yes Hydration appropriate: Yes Nausea/Vomiting absent: Yes BAILEY ZHANG MD Apr 21, 2018 19:11
--- NOTE | 2018-04-21 19:47 | PN ---
DATE: 04/21/2018 SUBJECTIVE: No new concerns. Plan for colonoscopy today. Looks more comfortable than yesterday. OBJECTIVE: GENERAL: Elderly female. HEENT: Head is normocephalic. CHEST: Clear to auscultation. CARDIOVASCULAR: S1, S2. ABDOMEN: Soft, nontender. EXTREMITIES: No lower extremity edema. ASSESSMENT AND PLAN: An 87-year-old female admitted with rectal bleed after a week long history of c onstipation and rectal pain who is managed as follows: 1. Elevated rectal bleed/hematochezia without melena and/or : Plan for colonoscopy today. 2. History of atrial fibrillation, was on anticoagulation prior to admission, which likely contribut ed to #1. 3. Hypertension with improved control. 4. Hypochromic microcytic anemia secondary to #1. 5. Reactive leukocytosis, improving. 6. Acute renal insufficiency, rule out underlying chronic kidney disease, improved. 7. Hypokalemia, status post repletion. 8. Prediabetes. Hemoglobin A1c of 6.3, was on metformin. 9. History of glaucoma. 10. History of dyslipidemia. DISPOSITION: To colonoscopy today. Repeat electrolytes. Follow up colonoscopy findings. Dictated By: EMMY GARCIA MD BA/TORIN Conf#: [id number] DID#: [id number] CC: PRAVEEN ZHANG MD;*EndCC*
[2018-04-21] MEDS: LATANOPROST 0.005% 2.5 ML OPH BOTH EYES SCH (20:29)
[2018-04-21] MEDS: INSULIN ASPART [NOVOLOG] 3 ML PEN SC SCH (21:00)
[2018-04-22] MEDS ORDERED: MENTHOL/METH SALICYLATE 30 GM OINT TOP SCH (01:30)
[2018-04-22] MEDS: ACCU-CHEK XX SCH (02:00)
[2018-04-22] MEDS: SOD CHLORIDE 0.9% 1,000 ML IV SCH (02:20)
[2018-04-22 02:27] VITALS: BP 169/84; PULSE 60; RESP 16
[2018-04-22] MEDS: INSULIN ASPART [NOVOLOG] 3 ML PEN SC SCH ×4 (07:30→20:30)
[2018-04-22 08:00] VITALS: BP 162/84; PULSE 84; RESP 20
[2018-04-22] MEDS: FENOFIBRATE 145 MG TAB PO SCH (08:25)
[2018-04-22] MEDS: METOPROLOL 25 MG TAB PO SCH ×2 (08:25→20:20)
[2018-04-22] MEDS: POLYETHYLENE GLYCOL 17 GM PACKET PO SCH (08:25)
[2018-04-22] MEDS: DOCUSATE SODIUM 100 MG CAP PO SCH ×2 (08:25→20:20)
[2018-04-22] MEDS ORDERED: POTASSIUM CHLORIDE (SR) 20 MEQ TAB PO STA (12:34)
--- NOTE | 2018-04-22 13:10 | PN ---
Date/Time of Note Date/Time of Note DATE: 04/22/18 TIME: 13:05 Assessment/Plan VTE Prophylaxis Risk score (from Ns)>0 risk: 5 SCD applied (from Nsg): Yes Pharmacological prophylaxis: other (scds) Lines/Catheters [facility] Peripheral IV Assessment/Plan Hospital Course Summary Assessment and Plan: Assessment: Rectal bleed Colonoscopy 04/21/18 Impression Diverticulosis Colon polyp, removed- BX: TA Internal hemorrhoids No active bleeding Normocytic anemia Coagulopathy, mild Atrial Fibrillation -Eliquis on hold Diabetes mellitus COPD Leukocytosis Renal insufficiency History recent of Shingles- s/p treatment Plan: Advance diet as tolerated Monitor labs- HGB stable Bx- reviewed patient with TA no evidence of malignancy Pt appears stable for out-pt management from GI point of view- however patient concerned about being home alone by herself as she feels weak. Patient seen in collaboration with Dr. Martinez/Ana Cristina Subjective: Course reviewed with nursing staff Patient interviewed and examined All labs, imaging and other results reviewed The patient resting in bed, no c/o abdominal pain nausea or vomiting. No further c/o rectal pain. Discussed colonoscopy results and bx results with patient. Pt does feel very weak, and she is concerned about being at home by herself as her daughter works. No over signs of GI bleed. HGB stable,. PHYSICAL EXAMINATION: GENERAL: Well developed, well nourished, alert & oriented x 3, in no acute distress SKIN: No lesions EYES: Pupils equal reactive to light, no discharge. EARS/NOSE AND THROAT: Ears normal, nose normal, oropharynx normal NECK: Supple, no masses CHEST: Inspection within normal limits. CARDIOVASCULAR: Heart: Irregular rate and rhythm RESPIRATORY: Lungs clear to auscultation GASTROINTESTINAL AND LIVER: Abdomen: Soft, non tenderness, non-distended, no hernias, no masses, no organomegaly, no ascites, no guarding, no rebound tenderness, normoactive bowel sounds. Rectal: hard stool noted GENITOURINARY:Female genitalia within normal limits. Result Diagram: 04/22/18 0546 04/22/18 0546 Results 24hrs Laboratory Tests Test 04/21/18 20:33 04/21/18 20:37 04/21/18 20:55 04/22/18 02:25 Bedside Glucose 73 67 L 90 78 Test 04/22/18 05:46 04/22/18 07:51 04/22/18 12:03 White Blood Count 6.4 # Red Blood Count 3.49 L Hemoglobin 9.1 L Hematocrit 29.9 L Mean Corpuscular 85.7 Volume Mean Corpuscular 26.1 L Hemoglobin Mean Corpuscular 30.4 L Hemoglobin Concent Red Cell 16.3 H Distribution Width Platelet Count 298 Mean Platelet Volume 11.1 H Immature 0.300 Granulocytes % Neutrophils % 63.7 Lymphocytes % 20.1 Monocytes % 10.9 Eosinophils % 4.2 Basophils % 0.8 Nucleated Red Blood 0.0 Cells % Immature 0.020 Granulocytes # Neutrophils # 4.1 Lymphocytes # 1.3 Monocytes # 0.7 Eosinophils # 0.3 Basophils # 0.1 Nucleated Red Blood 0.0 Cells # Sodium Level 142 Potassium Level 3.4 L Chloride Level 106 Carbon Dioxide Level 24 Anion Gap 12 Blood Urea Nitrogen 19 # Creatinine 0.96 Est Glomerular Filtrat Rate mL/min Glucose Level 103 Calcium Level 9.5 Bedside Glucose 92 112 Exam/Review of Systems Exam Vitals Vital Signs Date Temp Pulse Resp B/P (MAP) Pulse Ox O2 O2 Flow FiO2 Time Delivery Rate 04/22/18 97.8 84 20 162/84 96 08:00 (110) 04/21/18 Nasal 2.0 18:33 Cannula Intake and Output 04/21/18 04/21/18 04/22/18 1414:59 22:59 06:59 IntakeIntake Total 150 ml 50 ml OutputOutput Total 3 ml BalanceBalance 150 ml 47 ml Results Results 24hrs Laboratory Tests Test 04/21/18 20:33 04/21/18 20:37 04/21/18 20:55 04/22/18 02:25 Bedside Glucose 73 67 L 90 78 Test 04/22/18 05:46 04/22/18 07:51 04/22/18 12:03 White Blood Count 6.4 # Red Blood Count 3.49 L Hemoglobin 9.1 L Hematocrit 29.9 L Mean Corpuscular 85.7 Volume Mean Corpuscular 26.1 L Hemoglobin Mean Corpuscular 30.4 L Hemoglobin Concent Red Cell 16.3 H Distribution Width Platelet Count 298 Mean Platelet Volume 11.1 H Immature 0.300 Granulocytes % Neutrophils % 63.7 Lymphocytes % 20.1 Monocytes % 10.9 Eosinophils % 4.2 Basophils % 0.8 Nucleated Red Blood 0.0 Cells % Immature 0.020 Granulocytes # Neutrophils # 4.1 Lymphocytes # 1.3 Monocytes # 0.7 Eosinophils # 0.3 Basophils # 0.1 Nucleated Red Blood 0.0 Cells # Sodium Level 142 Potassium Level 3.4 L Chloride Level 106 Carbon Dioxide Level 24 Anion Gap 12 Blood Urea Nitrogen 19 # Creatinine 0.96 Est Glomerular Filtrat Rate mL/min Glucose Level 103 Calcium Level 9.5 Bedside Glucose 92 112 Medications Medication Current Medications IV Flush (NS 3 ml) 3 ml PER PROTOCOL IV ; Start 04/20/18 at 02:30 Ondansetron HCl (Zofran Inj) 4 mg Q6H PRN IV NAUSEA/VOMITING; Start 04/20/18 at 02:30 Acetaminophen (Tylenol Tab) 650 mg Q6H PRN PO .PAIN 1-3 OR TEMP; Start 04/20/18 at 02:30 Acetaminophen/ Hydrocodone Bitart ([place] (5/325)) 1 tab Q6H PRN PO .PAIN 4-6 Last administered on 04/20/18at 17:54; Admin Dose 1 TAB; Start 04/20/18 at 02:30 Diagnostic Test (Pha) (Accu-Chek) 1 ea 02 XX ; Start 04/21/18 at 02:00 Metoprolol Tartrate (Lopressor) 25 mg BID PO Last administered on 04/22/18at 08:25; Admin Dose 25 MG; Start 04/20/18 at 09:00 Latanoprost (Xalatan) 1 drop QHS BOTH EYES Last administered on 04/21/18at 20:29; Admin Dose 1 DROP; Start 04/20/18 at 21:00 Fenofibrate (Tricor) 145 mg DAILY PO Last administered on 04/22/18at 08:25; Admin Dose 145 MG; Start 04/20/18 at 09:00 Miscellaneous Information 1 ea NOTE XX ; Start 04/20/18 at 03:00 Glucose (Glutose) 15 gm Q15M PRN PO DECREASED GLUCOSE; Start 04/20/18 at 03:00 Glucose (Glutose) 22.5 gm Q15M PRN PO DECREASED GLUCOSE; Start 04/20/18 at 03:00 Dextrose (D50w Syringe) 25 ml Q15M PRN IV DECREASED GLUCOSE; Start 04/20/18 at 03:00 Dextrose (D50w Syringe) 50 ml Q15M PRN IV DECREASED GLUCOSE; Start 04/20/18 at 03:00 Glucagon (Glucagen) 1 mg Q15M PRN IM DECREASED GLUCOSE; Start 04/20/18 at 03:00 Glucose (Glutose) 15 gm Q15M PRN BUCCAL DECREASED GLUCOSE; Start 04/20/18 at 03:00 Albuterol/ Ipratropium (Duoneb) 3 ml Q2H RESP THERAPY PRN HHN shortness of breath; Start 04/20/18 at 03:00 Guaifenesin/ Codeine Phosphate (Robitussin Ac Liquid Cup) 5 ml Q4H PRN PO cough; Start 04/20/18 at 03:00 Polyethylene Glycol (Miralax) 17 gm DAILY PO Last administered on 04/22/18at 08:25; Admin Dose 17 GM; Start 04/20/18 at 10:30 Docusate Sodium (Colace) 100 mg BID PO Last administered on 04/22/18at 08:25; Admin Dose 100 MG; Start 04/20/18 at 10:30 Insulin Aspart (Novolog Insulin Pen) (Adult SC Insulin - Mild Algorithm)... AC MEALS AND BEDTIME SC ; Start 04/21/18 at 21:00 Menthol/Methyl Salicylate (Jose Maxwell) 1 applic TID PRN TOP aching; Start 04/22/18 at 01:30 МАРИЯ HOLLOWAY Apr 22, 2018 13:10
[2018-04-22 14:00] VITALS: BP 158/78; PULSE 76; RESP 20
--- NOTE | 2018-04-22 17:11 | PN ---
Date/Time of Note Date/Time of Note DATE: 04/22/18 TIME: 12:04 Assessment/Plan VTE Prophylaxis Risk score (from Ns)>0 risk: 5 SCD applied [place] [facility] [place] Yes Pharmacological prophylaxis: NA/contraindicated Pharm contraindication: bleeding Lines/Catheters IV Catheter Type (from [facility]): Peripheral IV Assessment/Plan Hospital Course Subjective : very lethargic today, still having barely controllable diarrheal stools Objective : Constitutional: alert, oriented, frail, lethargoic Head: atraumatic, normocephalic Neck: non-tender, supple Respiratory: clear to auscultation Cardiovascular: regular rate and rhythm Gastrointestinal: S/ NT / mildly distended / +BS Extremities: no edema, good radial pulses assessment and plan: An 87-year-old female admitted with rectal bleed after a week long history of constipation and rectal pain who is managed as follows: 1. Rectal bleed/hematochezia without melena -s/p colonoscopy 04/21/18, showed int hemorrhoids, colon polyp removed,path showed tubular adenoma and diverticulosis -no further bleeding 2. History of atrial fibrillation, was on anticoagulation prior to admission, w hich likely contributed to #1. -coagulation remains on hold, -obtain GI clearance to resume ? 3. Hypertension with improved control. 4. Hypochromic microcytic anemia secondary to #1. 5. Reactive leukocytosis, improving. 6. Acute renal insufficiency, rule out underlying chronic kidney disease, improved. 7. Hypokalemia, status post repletion. 8. Prediabetes. Hemoglobin A1c of 6.3, was on metformin. 9. History of glaucoma. 10. History of dyslipidemia. DISPOSITION: -still very lethargic with ongoing diarrhea from prep, monitor in house for now -Advance diet as tolerated Result Diagram: 04/22/18 0546 04/22/18 0546 Results 24hrs Laboratory Tests Test 04/21/18 20:33 04/21/18 20:37 04/21/18 20:55 04/22/18 02:25 Bedside Glucose 73 67 L 90 78 Test 04/22/18 05:46 04/22/18 07:51 04/22/18 12:03 White Blood Count 6.4 # Red Blood Count 3.49 L Hemoglobin 9.1 L Hematocrit 29.9 L Mean Corpuscular 85.7 Volume Mean Corpuscular 26.1 L Hemoglobin Mean Corpuscular 30.4 L Hemoglobin Concent Red Cell 16.3 H Distribution Width Platelet Count 298 Mean Platelet Volume 11.1 H Immature 0.300 Granulocytes % Neutrophils % 63.7 Lymphocytes % 20.1 Monocytes % 10.9 Eosinophils % 4.2 Basophils % 0.8 Nucleated Red Blood 0.0 Cells % Immature 0.020 Granulocytes # Neutrophils # 4.1 Lymphocytes # 1.3 Monocytes # 0.7 Eosinophils # 0.3 Basophils # 0.1 Nucleated Red Blood 0.0 Cells # Sodium Level 142 Potassium Level 3.4 L Chloride Level 106 Carbon Dioxide Level 24 Anion Gap 12 Blood Urea Nitrogen 19 # Creatinine 0.96 Est Glomerular Filtrat Rate mL/min Glucose Level 103 Calcium Level 9.5 Bedside Glucose 92 112 Exam/Review of Systems Exam Vitals Vital Signs Date Temp Pulse Resp B/P (MAP) Pulse Ox O2 O2 Flow FiO2 Time Delivery Rate 04/22/18 98.8 76 20 158/78 96 14:00 (104) 04/21/18 Nasal 2.0 18:33 Cannula Intake and Output 04/21/18 04/21/18 04/22/18 1414:59 22:59 06:59 IntakeIntake Total 150 ml 50 ml OutputOutput Total 3 ml BalanceBalance 150 ml 47 ml Results Results 24hrs Laboratory Tests Test 04/21/18 20:33 04/21/18 20:37 04/21/18 20:55 04/22/18 02:25 Bedside Glucose 73 67 L 90 78 Test 04/22/18 05:46 04/22/18 07:51 04/22/18 12:03 White Blood Count 6.4 # Red Blood Count 3.49 L Hemoglobin 9.1 L Hematocrit 29.9 L Mean Corpuscular 85.7 Volume Mean Corpuscular 26.1 L Hemoglobin Mean Corpuscular 30.4 L Hemoglobin Concent Red Cell 16.3 H Distribution Width Platelet Count 298 Mean Platelet Volume 11.1 H Immature 0.300 Granulocytes % Neutrophils % 63.7 Lymphocytes % 20.1 Monocytes % 10.9 Eosinophils % 4.2 Basophils % 0.8 Nucleated Red Blood 0.0 Cells % Immature 0.020 Granulocytes # Neutrophils # 4.1 Lymphocytes # 1.3 Monocytes # 0.7 Eosinophils # 0.3 Basophils # 0.1 Nucleated Red Blood 0.0 Cells # Sodium Level 142 Potassium Level 3.4 L Chloride Level 106 Carbon Dioxide Level 24 Anion Gap 12 Blood Urea Nitrogen 19 # Creatinine 0.96 Est Glomerular Filtrat Rate mL/min Glucose Level 103 Calcium Level 9.5 Bedside Glucose 92 112 Medications Medication Current Medications IV Flush (NS 3 ml) 3 ml PER PROTOCOL IV ; Start 04/20/18 at 02:30 Ondansetron HCl (Zofran Inj) 4 mg Q6H PRN IV NAUSEA/VOMITING; Start 04/20/18 at 02:30 Acetaminophen (Tylenol Tab) 650 mg Q6H PRN PO .PAIN 1-3 OR TEMP; Start 04/20/18 at 02:30 Acetaminophen/ Hydrocodone Bitart ([place] (5/325)) 1 tab Q6H PRN PO .PAIN 4-6 Last administered on 04/20/18at 17:54; Admin Dose 1 TAB; Start 04/20/18 at 02:30 Diagnostic Test (Pha) (Accu-Chek) 1 ea 02 XX ; Start 04/21/18 at 02:00 Metoprolol Tartrate (Lopressor) 25 mg BID PO Last administered on 04/22/18at 08:25; Admin Dose 25 MG; Start 04/20/18 at 09:00 Latanoprost (Xalatan) 1 drop QHS BOTH EYES Last administered on 04/21/18at 20:29; Admin Dose 1 DROP; Start 04/20/18 at 21:00 Fenofibrate (Tricor) 145 mg DAILY PO Last administered on 04/22/18at 08:25; Admin Dose 145 MG; Start 04/20/18 at 09:00 Miscellaneous Information 1 ea NOTE XX ; Start 04/20/18 at 03:00 Glucose (Glutose) 15 gm Q15M PRN PO DECREASED GLUCOSE; Start 04/20/18 at 03:00 Glucose (Glutose) 22.5 gm Q15M PRN PO DECREASED GLUCOSE; Start 04/20/18 at 03:00 Dextrose (D50w Syringe) 25 ml Q15M PRN IV DECREASED GLUCOSE; Start 04/20/18 at 03:00 Dextrose (D50w Syringe) 50 ml Q15M PRN IV DECREASED GLUCOSE; Start 04/20/18 at 03:00 Glucagon (Glucagen) 1 mg Q15M PRN IM DECREASED GLUCOSE; Start 04/20/18 at 03:00 Glucose (Glutose) 15 gm Q15M PRN BUCCAL DECREASED GLUCOSE; Start 04/20/18 at 03:00 Albuterol/ Ipratropium (Duoneb) 3 ml Q2H RESP THERAPY PRN HHN shortness of breath; Start 04/20/18 at 03:00 Guaifenesin/ Codeine Phosphate (Robitussin Ac Liquid Cup) 5 ml Q4H PRN PO cough; Start 04/20/18 at 03:00 Polyethylene Glycol (Miralax) 17 gm DAILY PO Last administered on 04/22/18at 08:25; Admin Dose 17 GM; Start 04/20/18 at 10:30 Docusate Sodium (Colace) 100 mg BID PO Last administered on 04/22/18at 08:25; Admin Dose 100 MG; Start 04/20/18 at 10:30 Insulin Aspart (Novolog Insulin Pen) (Adult SC Insulin - Mild Algorithm)... AC MEALS AND BEDTIME SC ; Start 04/21/18 at 21:00 Menthol/Methyl Salicylate (Jose Maxwell) 1 applic TID PRN TOP aching; Start 04/22/18 at 01:30 EMMY GARCIA Apr 22, 2018 17:11
[2018-04-22] MEDS: HYDROCODONE/APAP (5/325) TAB PO PRN (18:53)
[2018-04-22] MEDS: LATANOPROST 0.005% 2.5 ML OPH BOTH EYES SCH (20:20)
[2018-04-22 20:41] VITALS: BP 138/64; PULSE 74; RESP 16
[2018-04-23] MEDS: ACCU-CHEK XX SCH (02:00)
[2018-04-23] MEDS: MENTHOL/METH SALICYLATE 30 GM OINT TOP PRN ×3 (02:21→18:01)
[2018-04-23 02:58] VITALS: BP 148/66; PULSE 61; RESP 16
[2018-04-23] MEDS: INSULIN ASPART [NOVOLOG] 3 ML PEN SC SCH ×4 (07:30→20:28)
[2018-04-23 08:00] VITALS: BP 167/75; PULSE 100; RESP 18
[2018-04-23] MEDS: DOCUSATE SODIUM 100 MG CAP PO SCH ×2 (08:26→20:18)
[2018-04-23] MEDS: POLYETHYLENE GLYCOL 17 GM PACKET PO SCH (08:26)
[2018-04-23] MEDS: FENOFIBRATE 145 MG TAB PO SCH (08:26)
[2018-04-23] MEDS: METOPROLOL 25 MG TAB PO SCH ×2 (08:26→20:22)
[2018-04-23 10:59] VITALS: BP 152/60
--- NOTE | 2018-04-23 12:10 | PN ---
Date/Time of Note Date/Time of Note DATE: 04/23/18 TIME: 12:07 Assessment/Plan VTE Prophylaxis Risk score (from Ns)>0 risk: 4 SCD applied (from [facility] [place] Yes Pharmacological prophylaxis: NA/contraindicated Pharm contraindication: bleeding Lines/Catheters IV Catheter Type (from [facility]): Peripheral IV Assessment/Plan Hospital Course Subjective : still very lethargic, has had one large diarrheal stool again today, feels like everything she eats comes right out Objective : Constitutional: alert, oriented, frail, lethargi c Head: atraumatic, normocephalic Neck: non-tender, supple Respiratory: clear to auscultation Cardiovascular: regular rate and rhythm Gastrointestinal: S/ NT / mildly distended / +BS Extremities: no edema, good radial pulses assessment and plan: An 87-year-old female admitted with rectal bleed after a week long history of constipation and rectal pain who is managed as follows: 1. Rectal bleed/hematochezia without melena -s/p colonoscopy 04/21/18, showed int hemorrhoids, colon polyp removed,path sh owed tubular adenoma and diverticulosis -no further bleeding 2. History of atrial fibrillation, was on anticoagulation prior to admission, which likely contributed to #1. -coagulation remains on hold, -obtain GI clearance to resume ? 3. Hypertension with improved control. 4. Hypochromic microcytic anemia secondary to #1. 5. Reactive leukocytosis, improving. 6. Acute renal insufficiency, rule out underlying chronic kidney disease, improved. 7. Hypokalemia, status post repletion. 8. Prediabetes. Hemoglobin A1c of 6.3, was on metformin. 9. History of glaucoma. 10. History of dyslipidemia. 11. Persistent diarrhea post colonoscopy DISPOSITION: -still very lethargic with ongoing diarrhea from prep, monitor in house for now -Advance diet as tolerated Result Diagram: 04/23/1851604/23/1817 Results 24hrs Laboratory Tests Test 04/22/18 17:03 04/22/18 20:23 04/22/18 20:24 04/23/18 02:23 Bedside Glucose 130 185 226 H 88 Test 04/23/18 05:17 04/23/18 07:50 White Blood Count 6.5 Red Blood Count 3.84 L Hemoglobin 10.0 L Hematocrit 32.5 L Mean Corpuscular 84.6 Volume Mean Corpuscular 26.0 L Hemoglobin Mean Corpuscular 30.8 L Hemoglobin Concent Red Cell 16.0 H Distribution Width Platelet Count 316 Mean Platelet Volume 11.0 H Immature 0.500 H Granulocytes % Neutrophils % 57.5 Lymphocytes % 26.2 Monocytes % 10.6 Eosinophils % 4.6 Basophils % 0.6 Nucleated Red Blood 0.0 Cells % Immature 0.030 Granulocytes # Neutrophils # 3.8 Lymphocytes # 1.7 Monocytes # 0.7 Eosinophils # 0.3 Basophils # 0.0 Nucleated Red Blood 0.0 Cells # Sodium Level 139 Potassium Level 4.4 Chloride Level 106 Carbon Dioxide Level 30 Anion Gap 3 #L Blood Urea Nitrogen 15 Creatinine 1.04 H Est Glomerular Filtrat Rate mL/min Glucose Level 101 Calcium Level 9.9 Bedside Glucose 103 Exam/Review of Systems Exam Vitals Vital Signs Date Temp Pulse Resp B/P (MAP) Pulse Ox O2 O2 Flow FiO2 Time Delivery Rate 04/23/18 152/60 10:59 (90) 04/23/18 98.6 100 18 96 08:00 04/23/18 2.0 00:41 04/21/18 Nasal 18:33 Cannula Intake and Output 04/22/18 04/22/18 04/23/18 1515:00 23:00 07:00 IntakeIntake Total 2025 ml 350 ml BalanceBalance 2025 ml 350 ml Results Results 24hrs Laboratory Tests Test 04/22/18 17:03 04/22/18 20:23 04/22/18 20:24 04/23/18 02:23 Bedside Glucose 130 185 226 H 88 Test 04/23/18 05:17 04/23/18 07:50 White Blood Count 6.5 Red Blood Count 3.84 L Hemoglobin 10.0 L Hematocrit 32.5 L Mean Corpuscular 84.6 Volume Mean Corpuscular 26.0 L Hemoglobin Mean Corpuscular 30.8 L Hemoglobin Concent Red Cell 16.0 H Distribution Width Platelet Count 316 Mean Platelet Volume 11.0 H Immature 0.500 H Granulocytes % Neutrophils % 57.5 Lymphocytes % 26.2 Monocytes % 10.6 Eosinophils % 4.6 Basophils % 0.6 Nucleated Red Blood 0.0 Cells % Immature 0.030 Granulocytes # Neutrophils # 3.8 Lymphocytes # 1.7 Monocytes # 0.7 Eosinophils # 0.3 Basophils # 0.0 Nucleated Red Blood 0.0 Cells # Sodium Level 139 Potassium Level 4.4 Chloride Level 106 Carbon Dioxide Level 30 Anion Gap 3 #L Blood Urea Nitrogen 15 Creatinine 1.04 H Est Glomerular Filtrat Rate mL/min Glucose Level 101 Calcium Level 9.9 Bedside Glucose 103 Medications Medication Current Medications IV Flush (NS 3 ml) 3 ml PER PROTOCOL IV ; Start 04/20/18 at 02:30 Ondansetron HCl (Zofran Inj) 4 mg Q6H PRN IV NAUSEA/VOMITING; Start 04/20/18 at 02:30 Acetaminophen (Tylenol Tab) 650 mg Q6H PRN PO .PAIN 1-3 OR TEMP; Start 04/20/18 at 02:30 Acetaminophen/ Hydrocodone Bitart ([place] (5/325)) 1 tab Q6H PRN PO .PAIN 4-6 Last administered on 04/22/18at 18:53; Admin Dose 1 TAB; Start 04/20/18 at 02:30 Diagnostic Test (Pha) (Accu-Chek) 1 ea 02 XX ; Start 04/21/18 at 02:00 Metoprolol Tartrate (Lopressor) 25 mg BID PO Last administered on 04/23/18at 08:26; Admin Dose 25 MG; Start 04/20/18 at 09:00 Latanoprost (Xalatan) 1 drop QHS BOTH EYES Last administered on 04/22/18at 20:20; Admin Dose 1 DROP; Start 04/20/18 at 21:00 Fenofibrate (Tricor) 145 mg DAILY PO Last administered on 04/23/18at 08:26; Admin Dose 145 MG; Start 04/20/18 at 09:00 Miscellaneous Information 1 ea NOTE XX ; Start 04/20/18 at 03:00 Glucose (Glutose) 15 gm Q15M PRN PO DECREASED GLUCOSE; Start 04/20/18 at 03:00 Glucose (Glutose) 22.5 gm Q15M PRN PO DECREASED GLUCOSE; Start 04/20/18 at 03:00 Dextrose (D50w Syringe) 25 ml Q15M PRN IV DECREASED GLUCOSE; Start 04/20/18 at 03:00 Dextrose (D50w Syringe) 50 ml Q15M PRN IV DECREASED GLUCOSE; Start 04/20/18 at 03:00 Glucagon (Glucagen) 1 mg Q15M PRN IM DECREASED GLUCOSE; Start 04/20/18 at 03:00 Glucose (Glutose) 15 gm Q15M PRN BUCCAL DECREASED GLUCOSE; Start 04/20/18 at 03:00 Albuterol/ Ipratropium (Duoneb) 3 ml Q2H RESP THERAPY PRN HHN shortness of breath; Start 04/20/18 at 03:00 Guaifenesin/ Codeine Phosphate (Robitussin Ac Liquid Cup) 5 ml Q4H PRN PO cough; Start 04/20/18 at 03:00 Polyethylene Glycol (Miralax) 17 gm DAILY PO Last administered on 04/22/18 08:25; Admin Dose 17 GM; Start 04/20/18 at 10:30 Docusate Sodium (Colace) 100 mg BID PO Last administered on 04/22/18at 08:25; Admin Dose 100 MG; Start 04/20/18 at 10:30 Insulin Aspart (Novolog Insulin Pen) (Adult SC Insulin - Mild Algorithm)... AC MEALS AND BEDTIME SC Last administered on 04/22/18at 20:30; Admin Dose 2 UNIT; Start 04/21/18 at 21:00 Menthol/Methyl Salicylate (Jose Maxwell) 1 applic TID PRN TOP aching Last administered on 04/23/18at 08:33; Admin Dose 1 APPLIC; Start 04/22/18 at 01:30 Lidocaine (Lidoderm) 1 patch DAILY TD ; Start 04/23/18 at 12:00; Status UNV Dextrose/Sodium Chloride 1,000 ml @ 50 mls/hr Q20H IV ; Start 04/23/18 at 12:00; Status UNV EMMY GARCIA Apr 23, 2018 12:10
[2018-04-23] MEDS: DEXTROSE 5%-0.45% NACL 1,000 ML IV SCH (12:34)
[2018-04-23 14:00] VITALS: BP 149/70; PULSE 65; RESP 20
[2018-04-23] MEDS ORDERED: POLYETHYLENE GLYCOL 17 GM PACKET PO PRN (14:30)
[2018-04-23] MEDS: LIDOCAINE 5% PATCH TD SCH (14:39)
--- NOTE | 2018-04-23 16:06 | PN ---
Date/Time of Note Date/Time of Note DATE: 04/23/18 TIME: 16:04 Assessment/Plan VTE Prophylaxis Risk score (from Ns)>0 risk: 4 SCD applied (from Ns): Yes Pharmacological prophylaxis: other (scds) Lines/Catheters IV [facility]ter Type (from [facility]): Peripheral IV Assessment/Plan Hospital Course Summary Assessment and Plan: Assessment: Rectal bleed Colonoscopy 04/21/18 Impression Diverticulosis Colon polyp, removed- BX: TA Internal hemorrhoids No active bleeding Normocytic anemia Coagulopathy, mild Atrial Fibrillation -Eliquis on hold Diabetes mellitus COPD Leukocytosis Renal insufficiency History recent of Shingles- s/p treatment Plan: will add- Imodium PRN Consider ARU- eval- Patient seen in collaboration with Dr. Martinez/Ana Cristina Subjective/Free text: Course reviewed with nursing staff Patient interviewed and examined All labs, imaging and other results reviewed Diarrhea has resolved at this time- Pt was still on Miralax and Colace- she did not take this am. pt is kellie diet well. Still c/o weakness, she may benefit for ARU. Encourage ambulation with assist. PHYSICAL EXAMINATION: GENERAL: Well developed, well nourished, alert & oriented x 3, in no acute distress SKIN: No lesions EYES: Pupils equal reactive to light, no discharge. EARS/NOSE AND THROAT: Ears normal, nose normal, oropharynx normal NECK: Supple, no masses CHEST: Inspection within normal limits. CARDIOVASCULAR: Heart: Irregular rate and rhythm RESPIRATORY: Lungs clear to auscultation GASTROINTESTINAL AND LIVER: Abdomen: Soft, non tenderness, non-distended, no hernias, no masses, no organomegaly, no ascites, no guarding, no rebound tenderness, normoactive bowel sounds. Rectal: hard stool noted GENITOURINARY:Female genitalia within normal limits. Result Diagram: 04/23/18 0517 04/23/18516 Results 24hrs Laboratory Tests Test 04/22/18 17:03 04/22/18 20:23 04/22/18 20:24 04/23/18 02:23 Bedside Glucose 130 185 226 H 88 Test 04/23/18 05:17 04/23/18 07:50 04/23/18 12:03 White Blood Count 6.5 Red Blood Count 3.84 L Hemoglobin 10.0 L Hematocrit 32.5 L Mean Corpuscular 84.6 Volume Mean Corpuscular 26.0 L Hemoglobin Mean Corpuscular 30.8 L Hemoglobin Concent Red Cell 16.0 H Distribution Width Platelet Count 316 Mean Platelet Volume 11.0 H Immature 0.500 H Granulocytes % Neutrophils % 57.5 Lymphocytes % 26.2 Monocytes % 10.6 Eosinophils % 4.6 Basophils % 0.6 Nucleated Red Blood 0.0 Cells % Immature 0.030 Granulocytes # Neutrophils # 3.8 Lymphocytes # 1.7 Monocytes # 0.7 Eosinophils # 0.3 Basophils # 0.0 Nucleated Red Blood 0.0 Cells # Sodium Level 139 Potassium Level 4.4 Chloride Level 106 Carbon Dioxide Level 30 Anion Gap 3 #L Blood Urea Nitrogen 15 Creatinine 1.04 H Est Glomerular Filtrat Rate mL/min Glucose Level 101 Calcium Level 9.9 Bedside Glucose 103 126 Exam/Review of Systems Exam Vitals Vital Signs Date Temp Pulse Resp B/P (MAP) Pulse Ox O2 O2 Flow FiO2 Time Delivery Rate 04/23/18 98.8 65 20 149/70 96 14:00 (96) 04/23/18 2.0 00:41 04/21/18 Nasal 18:33 Cannula Intake and Output 04/22/18 04/22/18 04/23/18 1515:00 23:00 07:00 IntakeIntake Total 2025 ml 350 ml BalanceBalance 2025 ml 350 ml Results Results 24hrs Laboratory Tests Test 04/22/18 17:03 04/22/18 20:23 04/22/18 20:24 04/23/18 02:23 Bedside Glucose 130 185 226 H 88 Test 04/23/18 05:17 04/23/18 07:50 04/23/18 12:03 White Blood Count 6.5 Red Blood Count 3.84 L Hemoglobin 10.0 L Hematocrit 32.5 L Mean Corpuscular 84.6 Volume Mean Corpuscular 26.0 L Hemoglobin Mean Corpuscular 30.8 L Hemoglobin Concent Red Cell 16.0 H Distribution Width Platelet Count 316 Mean Platelet Volume 11.0 H Immature 0.500 H Granulocytes % Neutrophils % 57.5 Lymphocytes % 26.2 Monocytes % 10.6 Eosinophils % 4.6 Basophils % 0.6 Nucleated Red Blood 0.0 Cells % Immature 0.030 Granulocytes # Neutrophils # 3.8 Lymphocytes # 1.7 Monocytes # 0.7 Eosinophils # 0.3 Basophils # 0.0 Nucleated Red Blood 0.0 Cells # Sodium Level 139 Potassium Level 4.4 Chloride Level 106 Carbon Dioxide Level 30 Anion Gap 3 #L Blood Urea Nitrogen 15 Creatinine 1.04 H Est Glomerular Filtrat Rate mL/min Glucose Level 101 Calcium Level 9.9 Bedside Glucose 103 126 Medications Medication Current Medications IV Flush (NS 3 ml) 3 ml PER PROTOCOL IV ; Start 04/20/18 at 02:30 Ondansetron HCl (Zofran Inj) 4 mg Q6H PRN IV NAUSEA/VOMITING; Start 04/20/18 at 02:30 Acetaminophen (Tylenol Tab) 650 mg Q6H PRN PO .PAIN 1-3 OR TEMP; Start 04/20/18 at 02:30 Acetaminophen/ Hydrocodone Bitart ([place] (5/325)) 1 tab Q6H PRN PO .PAIN 4-6 Last administered on 04/22/18at 18:53; Admin Dose 1 TAB; Start 04/20/18 at 02:30 Diagnostic Test (Pha) (Accu-Chek) 1 ea 02 XX ; Start 04/21/18 at 02:00 Metoprolol Tartrate (Lopressor) 25 mg BID PO Last administered on 04/23/18at 08:26; Admin Dose 25 MG; Start 04/20/18 at 09:00 Latanoprost (Xalatan) 1 drop QHS BOTH EYES Last administered on 04/22/18at 20:20; Admin Dose 1 DROP; Start 04/20/18 at 21:00 Fenofibrate (Tricor) 145 mg DAILY PO Last administered on 04/23/18at 08:26; Admin Dose 145 MG; Start 04/20/18 at 09:00 Miscellaneous Information 1 ea NOTE XX ; Start 04/20/18 at 03:00 Glucose (Glutose) 15 gm Q15M PRN PO DECREASED GLUCOSE; Start 04/20/18 at 03:00 Glucose (Glutose) 22.5 gm Q15M PRN PO DECREASED GLUCOSE; Start 04/20/18 at 03:00 Dextrose (D50w Syringe) 25 ml Q15M PRN IV DECREASED GLUCOSE; Start 04/20/18 at 03:00 Dextrose (D50w Syringe) 50 ml Q15M PRN IV DECREASED GLUCOSE; Start 04/20/18 at 03:00 Glucagon (Glucagen) 1 mg Q15M PRN IM DECREASED GLUCOSE; Start 04/20/18 at 03:00 Glucose (Glutose) 15 gm Q15M PRN BUCCAL DECREASED GLUCOSE; Start 04/20/18 at 03:00 Albuterol/ Ipratropium (Duoneb) 3 ml Q2H RESP THERAPY PRN HHN shortness of breath; Start 04/20/18 at 03:00 Guaifenesin/ Codeine Phosphate (Robitussin Ac Liquid Cup) 5 ml Q4H PRN PO cough; Start 04/20/18 at 03:00 Docusate Sodium (Colace) 100 mg BID PO Last administered on 04/22/18at 08:25; Admin Dose 100 MG; Start 04/20/18 at 10:30 Insulin Aspart (Novolog Insulin Pen) (Adult SC Insulin - Mild Algorithm)... AC MEALS AND BEDTIME SC Last administered on 04/22/18at 20:30; Admin Dose 2 UNIT; Start 04/21/18 at 21:00 Menthol/Methyl Salicylate (Jose Maxwell) 1 applic TID PRN TOP aching Last administered on 04/23/18at 08:33; Admin Dose 1 APPLIC; Start 04/22/18 at 01:30 Lidocaine (Lidoderm) 1 patch DAILY TD Last administered on 04/23/18at 14:39; Admin Dose 1 PATCH; Start 04/23/18 at 12:00 Dextrose/Sodium Chloride 1,000 ml @ 50 mls/hr Q20H IV Last administered on 04/23/18at 12:34; Admin Dose 50 MLS/HR; Start 04/23/18 at 12:00 Polyethylene Glycol (Miralax) 17 gm DAILY PRN PO constipation; Start 04/23/18 at 14:30 МАРИЯ HOLLOWAY Apr 23, 2018 16:06
[2018-04-23] MEDS ORDERED: LOPERAMIDE 2 MG CAP PO PRN (16:30)
[2018-04-23 19:45] VITALS: BP 143/68; PULSE 70; RESP 20
[2018-04-23] MEDS: HYDROCODONE/APAP (5/325) TAB PO PRN (20:17)
[2018-04-23] MEDS: LATANOPROST 0.005% 2.5 ML OPH BOTH EYES SCH (20:17)
[2018-04-24 01:56] VITALS: BP 133/63; PULSE 57; RESP 20
[2018-04-24] MEDS: ACCU-CHEK XX SCH (02:00)
[2018-04-24] MEDS: INSULIN ASPART [NOVOLOG] 3 ML PEN SC SCH ×4 (07:30→21:00)
[2018-04-24] MEDS: DOCUSATE SODIUM 100 MG CAP PO SCH ×2 (08:41→21:16)
[2018-04-24] MEDS: FENOFIBRATE 145 MG TAB PO SCH (08:41)
[2018-04-24] MEDS: METOPROLOL 25 MG TAB PO SCH ×2 (08:42→21:16)
[2018-04-24 08:53] VITALS: BP 184/78; PULSE 61; RESP 19
[2018-04-24] MEDS: LIDOCAINE 5% PATCH TD SCH (09:00)
[2018-04-24 09:45] VITALS: BP 137/60; PULSE 64
[2018-04-24] MEDS: HYDROCODONE/APAP (5/325) TAB PO PRN (12:29)
[2018-04-24] MEDS ORDERED: MAGNESIUM SULFATE 2 GM/50 ML 50 ML IVPB ONE (14:00)
[2018-04-24] MEDS: DEXTROSE 5%-0.45% NACL 1,000 ML IV SCH (15:07)
[2018-04-24 15:22] VITALS: BP 130/57; PULSE 61; RESP 18
--- NOTE | 2018-04-24 17:41 | PN ---
Date/Time of Note Date/Time of Note DATE: 04/24/18 TIME: 17:39 Assessment/Plan VTE Prophylaxis [place] [facility] [place] risk: 7 [place]CD applied [place] [facility] [place] Yes Pharmacological prophylaxis: NA/contraindicated Pharm contraindication: bleeding Lines/Catheters IV [facility]from [facility] Peripheral IV Urinary Cath still in place: No Assessment/Plan Assessment/Plan Assessment: Rectal bleed Colonoscopy 04/21/18 Impression Diverticulosis Colon polyp, removed- BX: TA Internal hemorrhoids No active bleeding Normocytic anemia Coagulopathy, mild Atrial Fibrillation -Eliquis on hold Diabetes mellitus COPD Leukocytosis Renal insufficiency History recent of Shingles- s/p treatment Plan: GI will sign off and will be available to reconsult upon request Consider ARU- eval- Patient seen in collaboration with Dr. Martinez/Ana Cristina Subjective/Free text: Course reviewed with nursing staff Patient interviewed and examined All labs, imaging and other results reviewed Patient is doing well. No stool since yesterday. Denies hematochezia. No e vidence of GI bleeding. Hemoglobin is stable. Tolerating diet well. Awaiting for PT evaluation and transfer to acute rehab. With no further recommendations GI will sign off and will be available for consultation upon request. PHYSICAL EXAMINATION: GENERAL: Well developed, well nourished, alert & oriented x 3, in no acute distress SKIN: No lesions EYES: Pupils equal reactive to light, no discharge. EARS/NOSE AND THROAT: Ears normal, nose normal, oropharynx normal NECK: Supple, no masses CHEST: Inspection within normal limits. CARDIOVASCULAR: Heart: Irregular rate and rhythm RESPIRATORY: Lungs clear to auscultation GASTROINTESTINAL AND LIVER: Abdomen: Soft, non tenderness, non-distended, no hernias, no masses, no organomegaly, no ascites, no guarding, no rebound tenderness, normoactive bowel sounds. Rectal: hard stool noted GENITOURINARY:Female genitalia within normal limits. Result Diagram: 04/24/18 0439 04/24/189 Results 24hrs Laboratory Tests Test 04/23/18 20:21 04/24/18 02:34 04/24/18 04:39 04/24/18 08:07 Bedside Glucose 233 H 115 134 White Blood Count 6.5 Red Blood Count 3.88 L Hemoglobin 10.1 L Hematocrit 32.4 L Mean Corpuscular 83.5 Volume Mean Corpuscular 26.0 L Hemoglobin Mean Corpuscular 31.2 L Hemoglobin Concent Red Cell 16.4 H Distribution Width Platelet Count 294 Mean Platelet Volume 11.4 H Immature 0.500 H Granulocytes % Neutrophils % 61.9 Lymphocytes % 24.5 Monocytes % 9.9 Eosinophils % 2.6 Basophils % 0.6 Nucleated Red Blood 0.0 Cells % Immature 0.030 Granulocytes # Neutrophils # 4.1 Lymphocytes # 1.6 Monocytes # 0.7 Eosinophils # 0.2 Basophils # 0.0 Nucleated Red Blood 0.0 Cells # Sodium Level 139 Potassium Level 3.7 Chloride Level 108 Carbon Dioxide Level 27 Anion Gap 4 L Blood Urea Nitrogen 19 Creatinine 1.05 H Est Glomerular Filtrat Rate mL/min Glucose Level 130 Calcium Level 9.8 Magnesium Level 1.4 L Total Bilirubin 0.1 L Direct Bilirubin 0.00 Indirect Bilirubin 0.1 Aspartate Amino 27 Transf (AST/SGOT) Alanine 17 Aminotransferase (AL T/SGPT) Alkaline Phosphatase 46 Total Protein 6.0 L Albumin 3.2 L Globulin 2.80 Albumin/Globulin 1.14 Ratio Test 04/24/18 11:35 Bedside Glucose 165 CC: EDWIN DEL TORO MD ; Exam/Review of Systems Exam Vitals Vital Signs Date Temp Pulse Resp B/P (MAP) Pulse Ox O2 O2 Flow FiO2 Time Delivery Rate 04/24/18 98.7 61 18 130/57 100 15:22 (81) 04/24/18 2.0 05:39 04/21/18 Nasal 18:33 Cannula Intake and Output 04/23/18 04/23/18 04/24/18 1515:00 23:00 07:00 IntakeIntake Total 350 ml 500 ml 200 ml OutputOutput Total 2 ml BalanceBalance 350 ml 498 ml 200 ml Results Results 24hrs Laboratory Tests Test 04/23/18 20:21 04/24/18 02:34 04/24/18 04:39 04/24/18 08:07 Bedside Glucose 233 H 115 134 White Blood Count 6.5 Red Blood Count 3.88 L Hemoglobin 10.1 L Hematocrit 32.4 L Mean Corpuscular 83.5 Volume Mean Corpuscular 26.0 L Hemoglobin Mean Corpuscular 31.2 L Hemoglobin Concent Red Cell 16.4 H Distribution Width Platelet Count 294 Mean Platelet Volume 11.4 H Immature 0.500 H Granulocytes % Neutrophils % 61.9 Lymphocytes % 24.5 Monocytes % 9.9 Eosinophils % 2.6 Basophils % 0.6 Nucleated Red Blood 0.0 Cells % Immature 0.030 Granulocytes # Neutrophils # 4.1 Lymphocytes # 1.6 Monocytes # 0.7 Eosinophils # 0.2 Basophils # 0.0 Nucleated Red Blood 0.0 Cells # Sodium Level 139 Potassium Level 3.7 Chloride Level 108 Carbon Dioxide Level 27 Anion Gap 4 L Blood Urea Nitrogen 19 Creatinine 1.05 H Est Glomerular Filtrat Rate mL/min Glucose Level 130 Calcium Level 9.8 Magnesium Level 1.4 L Total Bilirubin 0.1 L Direct Bilirubin 0.00 Indirect Bilirubin 0.1 Aspartate Amino 27 Transf (AST/SGOT) Alanine 17 Aminotransferase (AL T/SGPT) Alkaline Phosphatase 46 Total Protein 6.0 L Albumin 3.2 L Globulin 2.80 Albumin/Globulin 1.14 Ratio Test 04/24/18 11:35 Bedside Glucose 165 Medications Medication Current Medications IV Flush (NS 3 ml) 3 ml PER PROTOCOL IV ; Start 04/20/18 at 02:30 Ondansetron HCl (Zofran Inj) 4 mg Q6H PRN IV NAUSEA/VOMITING; Start 04/20/18 at 02:30 Acetaminophen (Tylenol Tab) 650 mg Q6H PRN PO .PAIN 1-3 OR TEMP; Start 04/20/18 at 02:30 Acetaminophen/ Hydrocodone Bitart ([place] (5/325)) 1 tab Q6H PRN PO .PAIN 4-6 Last administered on 04/24/18at 12:29; Admin Dose 1 TAB; Start 04/20/18 at 02:30 Diagnostic Test (Pha) (Accu-Chek) 1 ea 02 XX ; Start 04/21/18 at 02:00 Metoprolol Tartrate (Lopressor) 25 mg BID PO Last administered on 04/24/18at 08:42; Admin Dose 25 MG; Start 04/20/18 at 09:00 Latanoprost (Xalatan) 1 drop QHS BOTH EYES Last administered on 04/23/18at 20:17; Admin Dose 1 DROP; Start 04/20/18 at 21:00 Fenofibrate (Tricor) 145 mg DAILY PO Last administered on 04/24/18at 08:41; Admin Dose 145 MG; Start 04/20/18 at 09:00 Miscellaneous Information 1 ea NOTE XX ; Start 04/20/18 at 03:00 Glucose (Glutose) 15 gm Q15M PRN PO DECREASED GLUCOSE; Start 04/20/18 at 03:00 Glucose (Glutose) 22.5 gm Q15M PRN PO DECREASED GLUCOSE; Start 04/20/18 at 03:00 Dextrose (D50w Syringe) 25 ml Q15M PRN IV DECREASED GLUCOSE; Start 04/20/18 at 03:00 Dextrose (D50w Syringe) 50 ml Q15M PRN IV DECREASED GLUCOSE; Start 04/20/18 at 03:00 Glucagon (Glucagen) 1 mg Q15M PRN IM DECREASED GLUCOSE; Start 04/20/18 at 03:00 Glucose (Glutose) 15 gm Q15M PRN BUCCAL DECREASED GLUCOSE; Start 04/20/18 at 03:00 Albuterol/ Ipratropium (Duoneb) 3 ml Q2H RESP THERAPY PRN HHN shortness of breath; Start 04/20/18 at 03:00 Guaifenesin/ Codeine Phosphate (Robitussin Ac Liquid Cup) 5 ml Q4H PRN PO cough; Start 04/20/18 at 03:00 Docusate Sodium (Colace) 100 mg BID PO Last administered on 04/24/18at 08:41; Admin Dose 100 MG; Start 04/20/18 at 10:30 Insulin Aspart (Novolog Insulin Pen) (Adult SC Insulin - Mild Algorithm)... AC MEALS AND BEDTIME SC Last administered on 04/24/18at 11:59; Admin Dose 1 UNIT; Start 04/21/18 at 21:00 Menthol/Methyl Salicylate (Jose Maxwell) 1 applic TID PRN TOP aching Last administered on 04/23/18at 18:01; Admin Dose 1 APPLIC; Start 04/22/18 at 01:30 Lidocaine (Lidoderm) 1 patch DAILY TD Last administered on 04/23/18at 14:39; Admin Dose 1 PATCH; Start 04/23/18 at 12:00 Dextrose/Sodium Chloride 1,000 ml @ 50 mls/hr Q20H IV Last administered on 04/24/18at 15:07; Admin Dose 50 MLS/HR; Start 04/23/18 at 12:00 Polyethylene Glycol (Miralax) 17 gm DAILY PRN PO constipation; Start 04/23/18 at 14:30 Loperamide HCl (Imodium Cap) 2 mg BID PRN PO DIARRHEA Last administered on 04/23/18at 20:18; Admin Dose 2 MG; Start 04/23/18 at 16:30 ARSLAN GOETZ GENETIC COUNSELOR Apr 24, 2018 17:41
[2018-04-24 20:00] VITALS: BP 160/70; PULSE 59; RESP 18
[2018-04-24] MEDS: LATANOPROST 0.005% 2.5 ML OPH BOTH EYES SCH (21:17)
[2018-04-25] MEDS: ACCU-CHEK XX SCH (00:42)
[2018-04-25 02:00] VITALS: BP 168/73; PULSE 60; RESP 18
--- NOTE | 2018-04-25 03:14 | DS ---
DATE OF ADMISSION: 04/20/2018 DATE OF DISCHARGE: TENTATIVE DATE OF DISCHARGE: 04/24/2018. PRESENTING COMPLAINT: Rectal bleed. FINAL DIAGNOSES: An 87-year-old female who was admitted with rectal bleed that started 2 days prior to admission after a week long history of constipation with severe rectal pain while trying to have a bowel movement managed as follows: 1. Rectal bleed with hematochezia without melena. -- Status post colonoscopy 04/21/2018 which showed internal hemorrhoids, colonic polyps removed, showed tubular adenoma and diverticulosis. No further bleeding. 2. Post-colonoscopy diarrhea, colon now improved with Lomotil therapy as needed. 3. History of atrial fibrillation, was on anticoagulation prior to admission which likely contributed to #1. -- Coagulation is still on hold at this time, will get GI clearance as to whether to resume or not. 4. Hypertension with improved control. 5. Hypochromic microcytic anemia secondary to #1, stable. 6. Reactive leukocytosis, now resolved. 7. Acute renal insufficiency with mild underlying chronic kidney disease, resolved back to baseline. 8. Prediabetes with hemoglobin A1c of 6.3, stable blood sugars, will resume home metformin. 9. History of glaucoma. 10. Dyslipidemia. 11. Generalized debility and lethargy. DISPOSITION: The patient is currently awaiting physical therapy review and acute rehabilitation evaluation. If accepted, the patient will be discharged to the acute rehabilitation unit. If not, the patient is to be discharged home with home health therapy. Also, the patient is quite weak and lives at home with her daughter who works during the day. DIET: Recommended diet is low cholesterol, low fat. ACTIVITIES: As tolerated. DISCHARGE MEDICATIONS: For a complete list of discharge medications, please review the patient's chart. Recent shingles with post-herpetic pain to the trunk, on lidocaine therapy. FOLLOWUP: The patient is to be followed up in the rehabilitation unit by the assigned physician. SHORT HOSPITALIZATION COURSE: Full details are available in the chart for review. SUMMARY: This pleasant 87-year-old female was admitted after she had presented with rectal bleeding with rectal pain and a CT of the abdomen and pelvis has not really showed any acute pathology other than constipation. She underwent an EGD that showed medium to large diverticula noted mostly in the left without diverticulitis, and a colonic polyp that was removed from the sigmoid colon. Her hospitalization was somewhat prolonged because she had persistent diarrhea even after the procedure and was quite debilitated limiting discharging her because she had to be home for an extensive period of time by herself while her daughter went to work. At this time, after discussing with her daughter acute rehabilitation unit evaluation is pending and if accepted, the patient is to be transferred over there for continued rehabilitation and then eventually discharge home. If not, the patient may be stable for discharge to home with her family tomorrow with home health. DISPOSITION: Awaiting PT on acute rehabilitation unit. Total time spent today in coordination has been more than 30 minutes. Dictated By: EMMY GARCIA MD BA/NTS Conf#: [id number] DID#: [id number] MTDD
[2018-04-25 04:15] VITALS: BP 143/67
[2018-04-25] MEDS: INSULIN ASPART [NOVOLOG] 3 ML PEN SC SCH ×4 (07:30→20:51)
[2018-04-25 08:00] VITALS: BP 99/58; PULSE 68; RESP 17
[2018-04-25] MEDS: DOCUSATE SODIUM 100 MG CAP PO SCH ×2 (08:46→20:47)
[2018-04-25] MEDS: APIXABAN 5 MG TABLET PO SCH ×2 (08:46→20:49)
[2018-04-25] MEDS: FENOFIBRATE 145 MG TAB PO SCH (08:46)
[2018-04-25] MEDS: METOPROLOL 25 MG TAB PO SCH ×2 (08:50→20:48)
[2018-04-25] MEDS: LIDOCAINE 5% PATCH TD SCH (09:42)
--- NOTE | 2018-04-25 11:51 | PN ---
Date/Time of Note Date/Time of Note DATE: 04/25/18 TIME: 11:49 Assessment/Plan VTE Prophylaxis Risk score (from [facility])>0 risk: 5 SCD applied (from [facility]): Yes Pharmacological prophylaxis: NA/contraindicated Pharm contraindication: bleeding, anticoag not tolerated Lines/Catheters [facility] (from [facility] Peripheral IV Urinary Cath still in place: No Assessment/Plan Hospital Course SUBJECTIVE: No acute overnight episodes. Sitting up in chair. OBJECTIVE: Vital signs-see below PHYSICAL EXAM: Constitutional: Frail looking, elderly female, not in acute distress psych: nl mood/affect, no complaints Head: atraumatic, normocephalic Eyes: nl conjunctiva, nl sclera ENMT: mucosa pink and moist, nl external ears & nose Neck: non-tender, supple Respiratory: clear to auscultation, normal air movement Cardiovascular: nl pulses, regular rate and rhythm Gastrointestinal: non-tender, soft, bowel sounds active in all 4 quadrants. Musculoskeletal/extremities: nl extremities to inspection, motor strength equal bilaterally, no focal deficit. Normal pulses,no cyanosis, no edema. Neurological: Alert oriented 3,nl speech, nl strength Skin: nl turgor ASSESSMENT/PLAN: An 87-year-old female admitted with rectal bleed after a week long history of constipation and rectal pain who is managed as follows: 1. Rectal bleed -s/p colonoscopy 04/21/18, showed int hemorrhoids, colon polyp removed,path showed tubular adenoma and diverticulosis -no further bleeding 2. History of atrial fibrillation, was on anticoagulation prior to admission, which likely contributed to #1. - patient has been cleared for Eliquis per GI and has been getting it. 3. Hypertension -Stable -Continue antihypertensives 4. Iron deficient anemia -We will give oral iron. 5. Dyslipidemia -On TriCor 6. Prediabetes with A1c 6.1. -Stable sugar -carb- controlled diet. DISPOSITION: We will place physical therapy order and [facility] consult. If patient does not qualify for inpatient rehab, DC planning with home health PT. Patient was seen in collaboration with Result Diagram: 04/25/18 0432 04/25/18 0432 Results 24hrs Laboratory Tests Test 04/24/18 17:19 04/24/18 21:14 04/25/18 04:32 04/25/18 06:35 Bedside Glucose 168 179 White Blood Count 8.9 # Red Blood Count 3.67 L Hemoglobin 9.8 L Hematocrit 30.7 L Mean Corpuscular 83.7 Volume Mean Corpuscular 26.7 L Hemoglobin Mean Corpuscular 31.9 L Hemoglobin Concent Red Cell 16.3 H Distribution Width Platelet Count 260 Mean Platelet Volume 11.9 H Immature 0.300 Granulocytes % Neutrophils % 77.3 H Lymphocytes % 12.9 L Monocytes % 8.5 Eosinophils % 0.7 Basophils % 0.3 Nucleated Red Blood 0.0 Cells % Immature 0.030 Granulocytes # Neutrophils # 6.9 Lymphocytes # 1.2 Monocytes # 0.8 Eosinophils # 0.1 Basophils # 0.0 Nucleated Red Blood 0.0 Cells # Sodium Level 140 Potassium Level 3.8 Chloride Level 106 Carbon Dioxide Level 26 Anion Gap 8 Blood Urea Nitrogen 15 Creatinine 1.06 H Est Glomerular Filtrat Rate mL/min Glucose Level 169 Calcium Level 9.9 Magnesium Level 1.9 Total Bilirubin 0.1 L Direct Bilirubin 0.00 Indirect Bilirubin 0.1 Aspartate Amino 31 Transf (AST/SGOT) Alanine 9 L Aminotransferase (AL T/SGPT) Alkaline Phosphatase 47 Total Protein 6.0 L Albumin 3.2 L Globulin 2.80 Albumin/Globulin 1.14 Ratio Urine Color STRAW Urine Clarity CLEAR Urine pH 6.0 Urine Specific 1.004 [place] Urine Ketones NEGATIVE Urine Nitrite NEGATIVE Urine Bilirubin NEGATIVE Urine Urobilinogen NEGATIVE Urine Leukocyte NEGATIVE Esterase Urine Hemoglobin NEGATIVE Urine Glucose NEGATIVE Urine Total Protein NEGATIVE Test 04/25/18 08:03 Bedside Glucose 121 Exam/Review of Systems Exam Vitals Vital Signs Date Temp Pulse Resp B/P (MAP) Pulse Ox O2 O2 Flow FiO2 Time Delivery Rate 04/25/18 98.4 68 17 99/58 (72) 99 Room Air 08:00 04/25/18 2.0 04:15 Intake and Output 04/24/18 04/24/18 04/25/18 1515:00 23:00 07:00 IntakeIntake Total 360 ml 1370 ml 400 ml BalanceBalance 360 ml 1370 ml 400 ml Results Results 24hrs Laboratory Tests Test 04/24/18 17:19 04/24/18 21:14 04/25/18 04:32 04/25/18 06:35 Bedside Glucose 168 179 White Blood Count 8.9 # Red Blood Count 3.67 L Hemoglobin 9.8 L Hematocrit 30.7 L Mean Corpuscular 83.7 Volume Mean Corpuscular 26.7 L Hemoglobin Mean Corpuscular 31.9 L Hemoglobin Concent Red Cell 16.3 H Distribution Width Platelet Count 260 Mean Platelet Volume 11.9 H Immature 0.300 Granulocytes % Neutrophils % 77.3 H Lymphocytes % 12.9 L Monocytes % 8.5 Eosinophils % 0.7 Basophils % 0.3 Nucleated Red Blood 0.0 Cells % Immature 0.030 Granulocytes # Neutrophils # 6.9 Lymphocytes # 1.2 Monocytes # 0.8 Eosinophils # 0.1 Basophils # 0.0 Nucleated Red Blood 0.0 Cells # Sodium Level 140 Potassium Level 3.8 Chloride Level 106 Carbon Dioxide Level 26 Anion Gap 8 Blood Urea Nitrogen 15 Creatinine 1.06 H Est Glomerular Filtrat Rate mL/min Glucose Level 169 Calcium Level 9.9 Magnesium Level 1.9 Total Bilirubin 0.1 L Direct Bilirubin 0.00 Indirect Bilirubin 0.1 Aspartate Amino 31 Transf (AST/SGOT) Alanine 9 L Aminotransferase (AL T/SGPT) Alkaline Phosphatase 47 Total Protein 6.0 L Albumin 3.2 L Globulin 2.80 Albumin/Globulin 1.14 Ratio Urine Color STRAW Urine Clarity CLEAR Urine pH 6.0 Urine Specific 1.004 [place] Urine Ketones NEGATIVE Urine Nitrite NEGATIVE Urine Bilirubin NEGATIVE Urine Urobilinogen NEGATIVE Urine Leukocyte NEGATIVE Esterase Urine Hemoglobin NEGATIVE Urine Glucose NEGATIVE Urine Total Protein NEGATIVE Test 04/25/18 08:03 Bedside Glucose 121 Medications Medication Current Medications IV Flush (NS 3 ml) 3 ml PER PROTOCOL IV ; Start 04/20/18 at 02:30 Ondansetron HCl (Zofran Inj) 4 mg Q6H PRN IV NAUSEA/VOMITING; Start 04/20/18 at 02:30 Acetaminophen (Tylenol Tab) 650 mg Q6H PRN PO .PAIN 1-3 OR TEMP Last administered on 04/25/18at 00:53; Admin Dose 650 MG; Start 04/20/18 at 02:30 Acetaminophen/ Hydrocodone Bitart ([place] (5/325)) 1 tab Q6H PRN PO .PAIN 4-6 Last administered on 04/24/18at 12:29; Admin Dose 1 TAB; Start 04/20/18 at 02:30 Diagnostic Test (Pha) (Accu-Chek) 1 ea 02 XX ; Start 04/21/18 at 02:00 Metoprolol Tartrate (Lopressor) 25 mg BID PO Last administered on 04/25/18 08:50; Admin Dose 25 MG; Start 04/20/18 at 09:00 Latanoprost (Xalatan) 1 drop QHS BOTH EYES Last administered on 04/24/18at 21:17; Admin Dose 1 DROP; Start 04/20/18 at 21:00 Fenofibrate (Tricor) 145 mg DAILY PO Last administered on 04/25/18 08:46; Admin Dose 145 MG; Start 04/20/18 at 09:00 Miscellaneous Information 1 ea NOTE XX ; Start 04/20/18 at 03:00 Glucose (Glutose) 15 gm Q15M PRN PO DECREASED GLUCOSE; Start 04/20/18 at 03:00 Glucose (Glutose) 22.5 gm Q15M PRN PO DECREASED GLUCOSE; Start 04/20/18 at 03:00 Dextrose (D50w Syringe) 25 ml Q15M PRN IV DECREASED GLUCOSE; Start 04/20/18 at 03:00 Dextrose (D50w Syringe) 50 ml Q15M PRN IV DECREASED GLUCOSE; Start 04/20/18 at 03:00 Glucagon (Glucagen) 1 mg Q15M PRN IM DECREASED GLUCOSE; Start 04/20/18 at 03:00 Glucose (Glutose) 15 gm Q15M PRN BUCCAL DECREASED GLUCOSE; Start 04/20/18 at 03:00 Albuterol/ Ipratropium (Duoneb) 3 ml Q2H RESP THERAPY PRN HHN shortness of breath; Start 04/20/18 at 03:00 Guaifenesin/ Codeine Phosphate (Robitussin Ac Liquid Cup) 5 ml Q4H PRN PO cough; Start 04/20/18 at 03:00 Docusate Sodium (Colace) 100 mg BID PO Last administered on 04/25/18 08:46; Admin Dose 100 MG; Start 04/20/18 at 10:30 Insulin Aspart (Novolog Insulin Pen) (Adult SC Insulin - Mild Algorithm)... AC MEALS AND BEDTIME SC Last administered on 04/24/18at 17:58; Admin Dose 1 UNIT; Start 04/21/18 at 21:00 Menthol/Methyl Salicylate (Jose Maxwell) 1 applic TID PRN TOP aching Last administered on 04/23/18at 18:01; Admin Dose 1 APPLIC; Start 04/22/18 at 01:30 Lidocaine (Lidoderm) 1 patch DAILY TD Last administered on 04/25/18 09:42; Admin Dose 1 PATCH; Start 04/23/18 at 12:00 Polyethylene Glycol (Miralax) 17 gm DAILY PRN PO constipation; Start 04/23/18 at 14:30 Loperamide HCl (Imodium Cap) 2 mg BID PRN PO DIARRHEA Last administered on 04/23/18at 20:18; Admin Dose 2 MG; Start 04/23/18 at 16:30 Apixaban (Eliquis) 5 mg BID PO Last administered on 04/25/18 08:46; Admin Dose 5 MG; Start 04/25/18 at 09:00 RUBY TREVINO NP Apr 25, 2018 11:51
[2018-04-25] MEDS ORDERED: MECLIZINE 12.5 MG TAB PO PRN (12:00)
[2018-04-25] MEDS: FERROUS SULFATE (EC) 325 MG TAB PO SCH (14:00)
[2018-04-25 14:05] VITALS: BP 129/58; PULSE 62; RESP 18
[2018-04-25 20:00] VITALS: BP 119/49; PULSE 64; RESP 18
[2018-04-25] MEDS: LATANOPROST 0.005% 2.5 ML OPH BOTH EYES SCH (20:47)
[2018-04-26 02:00] VITALS: BP 132/62; PULSE 72; RESP 18
[2018-04-26] MEDS: ACCU-CHEK XX SCH (02:00)
[2018-04-26] MEDS: INSULIN ASPART [NOVOLOG] 3 ML PEN SC SCH ×3 (07:30→17:35)
[2018-04-26 08:11] VITALS: BP 114/63; PULSE 69; RESP 18
[2018-04-26] MEDS: APIXABAN 5 MG TABLET PO SCH (08:44)
[2018-04-26] MEDS: FENOFIBRATE 145 MG TAB PO SCH (08:45)
[2018-04-26] MEDS: METOPROLOL 25 MG TAB PO SCH (08:45)
[2018-04-26] MEDS: FERROUS SULFATE (EC) 325 MG TAB PO SCH (08:45)
[2018-04-26] MEDS: DOCUSATE SODIUM 100 MG CAP PO SCH (08:45)
[2018-04-26] MEDS: LIDOCAINE 5% PATCH TD SCH (08:46)
--- NOTE | 2018-04-26 10:05 | DS ---
Date/Time of Note Date/Time of Note DATE: 04/26/18 TIME: 10:03 Discharge Summary Admission/Discharge Info Admit Date/Time Apr 20, 2018 at 07:14 Discharge Date/Time Discharge Diagnosis 1. Rectal bleed -s/p colonoscopy 04/21/18, showed int hemorrhoids, colon polyp removed,path showed tubular adenoma and diverticulosis -no further bleeding 2. History of atrial fibrillation, was on anticoagulation prior to admission, which likely contributed to #1. 3. Hypertension 4. Iron deficient anemia 5. Dyslipidemia 6. Prediabetes with A1c 6.1. Patient Condition: Stable Consults , gastroenterology Procedures Colonoscopy 04/21/18 Impression Diverticulosis Colon polyp, removed- BX: TA Internal hemorrhoids No active bleeding 04/19/2018. CT abdomen and pelvis. IMPRESSION: 1. No mass, lymphadenopathy, or focal acute inflammatory process is identified. 2. Moderate stool retention in the rectum. No colonic obstruction. 3. Unchanged hyperdense left renal cyst . 4. Right adrenal adenoma. 5. Aortoiliac atherosclerosis. Hospital Course 87-year-old female with history of paroxysmal atrial fibrillation, hypertension, dyslipidemia, prediabetes, was admitted after she had presented with rectal bleeding with rectal pain and a CT of the abdomen and pelvis has not really showed any acute pathology other than constipation. She underwent an EGD that showed medium to large diverticula noted mostly in the left without diverticulitis, and a colonic polyp that was removed from the sigmoid colon. Hospitalization was also noted for acute kidney injury with mild underlying chronic kidney disease, kidney function returned back to baseline. Patient was cleared to resume on anticoagulation per GI standpoint. Patient also noted with prediabetes with A1c 6.1, for which she was continued on diet modification. Comorbidities managed per outpatient regimen. At this time, patient is medically stable for discharge. However, patient required further physical therapy secondary to declining functional status. Patient had physical therapy evaluation and was accepted to acute rehabilitation unit for further rehabilitation. Patient and family in agreement with this plan. Approximately 60 m spent on coordinating the discharge on this patient. Patient was seen in collaboration with [facility] Meds Reported Medications Ergocalciferol (Vitamin D2) (VITAMIN D2) 50,000 Unit Capsule, 91542 UNIT PO, CAP Take 1 Capsule by mouth every 1st of the Month 11/26/17 Metoprolol Tartrate* (Lopressor*) 25 Mg Tab, 25 MG PO BID, #60 TAB 11/26/17 Albuterol Sulfate* (Ventolin HFA*) 18 Gm Hfa.aer.ad, 1 PUFF INHALATION Q6H PRN for NEEDED, #1 INHALER 12/19/16 Vit A/Vit C/Vit E/Zinc/Copper (Preservision Areds Softgel) 1 Each Capsule, 1 EACH PO BID, CAP 12/19/16 Travoprost* (Travatan*) 0.004%-2.5 Ml Opht, 1 DROP BOTH EYES QHS, #1 BOTTLE 12/19/16 Metformin Hcl* (Metformin Hcl*) 500 Mg Tablet, 500 MG PO WITH BREAKFAST DINNE, #60 TAB 12/19/16 Fenofibrate, Micronized* (Fenofibrate*) 160 Mg Tablet, 160 MG PO DAILY, TAB 12/19/16 Apixaban* (Eliquis*) 2.5 Mg Tablet, 2.5 MG PO BID, TAB 12/19/16 Primary Care Provider Not On Staff Doctor Pending Labs Laboratory Tests Test 04/25/18 11:53 04/25/18 17:19 04/25/18 20:50 04/26/18 04:58 Bedside 125 95 134 Glucose mg/dL (70-220) mg/dL (70-220) mg/dL (70-220) White Blood 7.9 Count 10^3/ul (4.8-1 0.8) Red Blood 3.60 Count 10^6/ul (4.20- 5.40) Hemoglobin 9.4 g/dl (12.0-16. 0) Hematocrit 30.5 % (37.0-47.0) Mean 84.7 Corpuscular fl (82.0-101.0 Volume ) Mean 26.1 Corpuscular pg (29.0-33.0) Hemoglobin Mean 30.8 Corpuscular g/dl (32.0-37. Hemoglobin Conc 0) ent Red Cell 16.8 Distribution % (11.5-14.5) Width Platelet Count 265 10^3/UL (140-4 15) Mean Platelet 11.7 Volume fl (7.4-10.4) Immature 0.600 Granulocytes % % (0.001-0.429 ) Neutrophils % 64.5 % (39.0-77.0) Lymphocytes % 20.5 % (15.0-51.0) Monocytes % 11.9 % (0.0-11.0) Eosinophils % 1.9 % (0.0-7.0) Basophils % 0.6 % (0.0-2.0) Nucleated Red 0.0 Blood Cells % /100WBC (0.0-0 .0) Immature 0.050 Granulocytes # 10^3/ul (0.0-0 .031) Neutrophils # 5.1 10^3/ul (1.6-7 .5) Lymphocytes # 1.6 10^3/ul (0.8-2 .9) Monocytes # 0.9 10^3/ul (0.3-0 .9) Eosinophils # 0.2 10^3/ul (0.0-0 .5) Basophils # 0.1 10^3/ul (0.0-0 .1) Nucleated Red 0.0 Blood Cells # 10^3/ul (0.0-0 .0) Test 04/26/18 07:53 Bedside 101 Glucose mg/dL (70-220) RUBY TREVINO NP Apr 26, 2018 10:05
--- NOTE | 2018-04-26 10:11 | PDOCDIS ---
Discharge Instructions DIAGNOSIS Discharge Diagnosis 1. Rectal bleed -s/p colonoscopy 04/21/18, showed int hemorrhoids, colon polyp removed,path showed tubular adenoma and diverticulosis -no further bleeding 2. History of atrial fibrillation, was on anticoagulation prior to admission, which likely contributed to #1. 3. Hypertension 4. Iron deficient anemia 5. Dyslipidemia 6. Prediabetes with A1c 6.1. CONDITION [id number] Patient Condition: [id number] Stable FOLLOW UP/APPOINTMENTS Follow-up Plan Discharge to acute rehabilitation unit RUBY TREVINO NP Apr 26, 2018 10:11
[2018-04-26 14:53] VITALS: BP 130/55; PULSE 64; RESP 20
== END 2018-04-26 18:45 | DRG 378 ==
LOC: E/R 20:32 → PP2 04-20 01:53 → OBSVTOIN 04-20 07:14
PROVIDERS: ADMIT Internal Medicine; ATTEND Internal Medicine
PROC: 0DBN8ZX Excision of Sigmoid Colon, Via Natural or Artificial Opening Endoscopic, Diagnostic (ICD-10-PCS; principal; 2018-04-21 17:00)
DX: K62.5 Hemorrhage of anus and rectum (principal); N17.9 Acute kidney failure, unspecified; K92.1 Melena; K57.30 Diverticulosis of large intestine without perforation or abscess without bleeding; I48.91 Unspecified atrial fibrillation; Z79.01 Long term (current) use of anticoagulants; K64.9 Unspecified hemorrhoids; Z79.02 Long term (current) use of antithrombotics/antiplatelets; E11.9 Type 2 diabetes mellitus without complications; E78.1 Pure hyperglyceridemia; R73.03 Prediabetes; K59.00 Constipation, unspecified; I12.9 Hypertensive chronic kidney disease with stage 1 through stage 4 chronic kidney disease, or unspecified chronic kidney disease; N18.9 Chronic kidney disease, unspecified; D50.9 Iron deficiency anemia, unspecified; D12.5 Benign neoplasm of sigmoid colon; E87.6 Hypokalemia
CPT/HCPCS: 36415; 74176; 80048; 80053; 81003; 82962; 83036; 83540; 83690; 83735; 85025; 85610; 85730; 88305; 97162; G0378; J1815; J2270; J3475; J3480; J7030; J7040; J7042

== ENCOUNTER 2018-04-26 17:21 | Inpatient (IN) | payer MEDICARE, BC ==
[~2018-04-26] VITALS: Ht 152.4 cm; Wt 60.2 kg
[2018-04-26 20:00] VITALS: BP 130/60; PULSE 62; RESP 16; Ht 152.4 cm; Wt 60.2 kg
[2018-04-26] MEDS ORDERED: MENTHOL/METH SALICYLATE 30 GM OINT TOP PRN (21:00)
[2018-04-26] MEDS ORDERED: GLUCAGON 1 MG INJ IM PRN (21:00)
[2018-04-26] MEDS ORDERED: ACETAMINOPHEN 325 MG TAB PO PRN (21:00)
[2018-04-26] MEDS ORDERED: ONDANSETRON 4 MG INJ IV PRN (21:00)
[2018-04-26] MEDS ORDERED: DEXTROSE 50% 50 ML SYRINGE IV PRN ×2 (21:00)
[2018-04-26] MEDS ORDERED: GLUCOSE GEL 15 GRAM TUBE PO PRN ×2 (21:00)
[2018-04-26] MEDS ORDERED: GLUCOSE GEL 15 GRAM TUBE BUCCAL PRN (21:00)
[2018-04-26] MEDS ORDERED: GUAIFENESIN/CODEINE 5ML CUP PO PRN (21:00)
[2018-04-26] MEDS: INSULIN ASPART [NOVOLOG] 3 ML PEN SC SCH (22:00)
[2018-04-26] MEDS: DOCUSATE SODIUM 100 MG CAP PO SCH (22:05)
[2018-04-26] MEDS: METOPROLOL 25 MG TAB PO SCH (22:07)
[2018-04-26] MEDS: APIXABAN 5 MG TABLET PO SCH (22:08)
[2018-04-26] MEDS: LATANOPROST 0.005% 2.5 ML OPH BOTH EYES SCH (22:34)
[2018-04-27] MEDS: ACCU-CHEK XX SCH (02:00)
[2018-04-27 02:10] VITALS: BP 142/71; PULSE 56; RESP 16
[2018-04-27] MEDS: INSULIN ASPART [NOVOLOG] 3 ML PEN SC SCH ×4 (07:05→21:00)
[2018-04-27] MEDS: metFORMIN 500 MG TAB PO SCH (07:54)
[2018-04-27 08:00] VITALS: BP 125/65; PULSE 78; RESP 18
[2018-04-27] MEDS: METOPROLOL 25 MG TAB PO SCH ×2 (09:00→20:58)
[2018-04-27] MEDS: LIDOCAINE 5% PATCH TD SCH ×3 (09:00→18:15)
[2018-04-27] MEDS: DOCUSATE SODIUM 100 MG CAP PO SCH ×2 (09:18→20:54)
[2018-04-27] MEDS: FENOFIBRATE 145 MG TAB PO SCH (09:18)
[2018-04-27] MEDS: HYDROCODONE/APAP (5/325) TAB PO PRN (09:19)
[2018-04-27] MEDS: APIXABAN 5 MG TABLET PO SCH ×2 (09:29→20:57)
[2018-04-27] MEDS: FERROUS SULFATE (EC) 325 MG TAB PO SCH (09:29)
--- NOTE | 2018-04-27 11:35 | HP ---
Date/Time of Note Date/Time of Note DATE: 04/27/18 TIME: 11:24 Assessment/Plan VTE Prophylaxis Risk score (from Nsg)>0 risk: 4 SCD applied (from Ns): No SCD contraindicated: other (see nsg notes) Pharmacological prophylaxis: apixaban Lines/Catheters [facility]from [facility] Saline Lock Urinary Cath still in place: No Assessment/Plan Hospital Course SUBJECTIVE: No acute overnight episodes. Sitting up in chair. OBJECTIVE: Vital signs-see below PHYSICAL EXAM: Constitutional: Frail looking, elderly female, not in acute distress psych: nl mood/affect, no complaints Head: atraumatic, normocephalic Eyes: nl conjunctiva, nl sclera ENMT: mucosa pink and moist, nl external ears & nose Neck: non-tender, supple Respiratory: clear to auscultation, normal air movement Cardiovascular: nl pulses, regular rate and rhythm Gastrointestinal: non-tender, soft, bowel sounds active in all 4 quadrants. Musculoskeletal/extremities: nl extremities to inspection, motor strength equal bilaterally, no focal deficit. Normal pulses,no cyanosis, no edema. Neurological: Alert oriented 3,nl speech, nl strength Skin: nl turgor ASSESSMENT/PLAN: An 87-year-old female with history of A. fib was on anticoagulation, hypertension, iron deficiency anemia, prediabetes, dyslipidemia, rectal bleed, status post colonoscopy, was transferred to rehab for decline in functional status... 1. Progressive debility -Continue rehab 2. Status post rectal bleed -s/p colonoscopy 04/21/18, showed int hemorrhoids, colon polyp removed,path showed tubular adenoma and diverticulosis -no further bleeding -stable H&H 3. History of atrial fibrillation, was on anticoagulation prior to admission, which likely contributed to #2. - patient has been cleared for Eliquis per GI and has been getting it. 4. Hypertension -Stable -Continue antihypertensives 5. Iron deficient anemia -cont. oral iron. 6. Dyslipidemia -On TriCor 7. Prediabetes with A1c 6.1. -Stable sugar -carb- controlled diet. 8. Mild RAMA, likely dehydration -Patient is appropriately dosed with Eliquis. -We will give gentle hydration and monitor renal function DVT prophylaxis: Eliquis Approximately 60 m spent on this history and physical. Patient was seen in collaboration with Dr.Vadgama Result Diagram: 04/27/18 0604/27/18 0620 Results 24hrs Laboratory Tests Test 04/26/18 22:10 04/26/18 22:30 04/27/18 04:15 04/27/18 06:20 Bedside Glucose 93 Urine Color YELLOW STRAW Urine Clarity SLIGHTLY CLOUDY CLEAR A Urine pH 5.0 5.0 Urine Specific 1.006 1.006 [place] Urine Ketones NEGATIVE NEGATIVE Urine Nitrite NEGATIVE NEGATIVE Urine Bilirubin NEGATIVE NEGATIVE Urine NEGATIVE NEGATIVE Urobilinogen Urine Leukocyte 3+ H NEGATIVE Esterase Urine Microscopic 1 RBC Urine Microscopic 18 H WBC Urine Squamous FEW Epithelial Cells Urine FEW A Transitional Epithelial Cells Urine Bacteria FEW A Urine Hemoglobin NEGATIVE NEGATIVE Urine Glucose NEGATIVE NEGATIVE Urine Total NEGATIVE NEGATIVE Protein White Blood Count 6.0 # Red Blood Count 3.62 L Hemoglobin 9.5 L Hematocrit 31.0 L Mean Corpuscular 85.6 Volume Mean Corpuscular 26.2 L Hemoglobin Mean Corpuscular 30.6 L Hemoglobin Concen t Red Cell 17.0 H Distribution Width Platelet Count 261 Mean Platelet 11.8 H Volume Immature 0.300 Granulocytes % Neutrophils % 63.9 Lymphocytes % 19.9 Monocytes % 12.7 H Eosinophils % 2.5 Basophils % 0.7 Nucleated Red 0.0 Blood Cells % Immature 0.020 Granulocytes # Neutrophils # 3.9 Lymphocytes # 1.2 Monocytes # 0.8 Eosinophils # 0.2 Basophils # 0.0 Nucleated Red 0.0 Blood Cells # Sodium Level 141 Potassium Level 3.6 Chloride Level 105 Carbon Dioxide 27 Level Anion Gap 9 Blood Urea 20 Nitrogen Creatinine 1.28 H Est Glomerular Filtrat Rate mL/min Glucose Level 103 Calcium Level 10.2 Total Bilirubin 0.2 Direct Bilirubin 0.00 Indirect 0.2 Bilirubin Aspartate Amino 25 Transf (AST/SGOT) Alanine 13 Aminotransferase (ALT/SGPT) Alkaline 51 Phosphatase Total Protein 6.4 Albumin 3.4 Globulin 3.00 Albumin/Globulin 1.13 Ratio Test 04/27/18 07:53 Bedside Glucose 109 HPI/ROS Admit Date/Time Admit Date/Time Apr 26, 2018 at 19:59 Hx of Present Illness 87-year-old female with history of paroxysmal atrial fibrillation, hypertension, dyslipidemia, prediabetes, was admitted at [facility] on 04/20/2018 after she had presented with rectal bleeding with rectal pain and a CT of the abdomen and pelvis has not really showed any acute pathology other than constipation. She underwent an EGD that showed medium to large diverticula noted mostly in the left without diverticulitis, and a colonic polyp that was removed from the sigmoid colon. Hospitalization was also noted for acute kidney injury with mild underlying chronic kidney disease, kidney function returned back to baseline. Patient was cleared to resume on anticoagulation per GI standpoint. Patient also noted with prediabetes with A1c 6.1, for which she was continued on diet modification. Comorbidities managed per outpatient regimen. Patient was then evaluated by physical therapy and deemed a good candidate for acute rehabilitation prior to discharge back to home. Patient was then accepted to [facility] on 04/26/2018. At my encounter with the patient, she is sitting up in a wheelchair, not in acute distress. Denies chest pain, palpitation, shortness of breath, nausea, vomiting, abdominal pain, loss of consciousness, dizziness, hematemesis, hematochezia, melena, fever, chills or other constitutional symptoms. ROS A 12 point review of system was assessed and is negative other than what is mentioned in the HPI. PMH/Family/Social Past Medical History See HPI Medications Current Medications Diagnostic Test (Pha) (Accu-Chek) 1 XX ; Start 04/27/18 at 02:00 Acetaminophen (Tylenol Tab) 650 mg Q6H PRN PO .PAIN 1-3 OR TEMP; Start 04/26/18 at 21:00 Apixaban (Eliquis) 2.5 mg BID PO Last administered on 04/27/18 09:29; Admin Dose 2.5 MG; Start 04/26/18 at 21:00 Docusate Sodium (Colace) 100 mg BID PO Last administered on 04/27/18 09:18; Admin Dose 100 MG; Start 04/26/18 at 21:00 Fenofibrate (Tricor) 145 mg DAILY PO Last administered on 04/27/18 09:18; Admin Dose 145 MG; Start 04/27/18 at 09:00 Ferrous Sulfate (Ferrous Sulfate (Ec)) 325 mg DAILY PO Last administered on 04/27/18 09:29; Admin Dose 325 MG; Start 04/27/18 at 09:00 Guaifenesin/ Codeine Phosphate (Robitussin Ac Liquid Cup) 5 ml Q4H PRN PO cough; Start 04/26/18 at 21:00 Acetaminophen/ Hydrocodone Bitart ([place] (5/325)) 1 tab Q6H PRN PO .PAIN 4-6 Last administered on 04/27/18at 09:19; Admin Dose 1 TAB; Start 04/26/18 at 21:00 Insulin Aspart (Novolog Insulin Pen) (Adult SC Insulin - Mild Algorithm)... AC MEALS AND BEDTIME SC ; Start 04/26/18 at 21:00 Latanoprost (Xalatan) 1 drop QHS BOTH EYES Last administered on 04/26/18at 22:34; Admin Dose 1 DROP; Start 04/26/18 at 21:00 Lidocaine (Lidoderm) 1 patch DAILY TD Last administered on 04/27/18at 09:20; Admin Dose 1 PATCH; Start 04/27/18 at 09:00 Menthol/Methyl Salicylate (Jose Maxwell) 1 applic TID PRN TOP aching; Start 04/26/18 at 21:00 Metoprolol Tartrate (Lopressor) 25 mg BID PO Last administered on 04/26/18at 22:07; Admin Dose 25 MG; Start 04/26/18 at 21:00 Ondansetron HCl (Zofran Inj) 4 mg Q6H PRN IV NAUSEA/VOMITING; Start 04/26/18 at 21:00 Miscellaneous Information 1 ea NOTE XX ; Start 04/26/18 at 21:00 Glucose (Glutose) 15 gm Q15M PRN PO DECREASED GLUCOSE; Start 04/26/18 at 21:00 Glucose (Glutose) 22.5 gm Q15M PRN PO DECREASED GLUCOSE; Start 04/26/18 at 21:00 Dextrose (D50w Syringe) 25 ml Q15M PRN IV DECREASED GLUCOSE; Start 04/26/18 at 21:00 Dextrose (D50w Syringe) 50 ml Q15M PRN IV DECREASED GLUCOSE; Start 04/26/18 at 21:00 Glucagon (Glucagen) 1 mg Q15M PRN IM DECREASED GLUCOSE; Start 04/26/18 at 21:00 Glucose (Glutose) 15 gm Q15M PRN BUCCAL DECREASED GLUCOSE; Start 04/26/18 at 21:00 Metformin HCl (Glucophage) 500 mg WITH BREAKFAST PO Last administered on 04/27at 07:54; Admin Dose 500 MG; Start 04/27/18 at 07:35 Multivitamins Therapeutic (Theragran) 1 tab DAILY PO ; Start 04/27/18 at 11:30; Status UNV Coded Allergies: [id number] Reductase Inhibitor (Unverified Allergy, Unknown, 11/26/17) Past Surgical History See HPI Social History Former smoker. Smoking Status: Former smoker Exam/Review of Systems Vital Signs Vitals Vital Signs Date Temp Pulse Resp B/P (MAP) Pulse Ox O2 O2 Flow FiO2 Time Delivery Rate 04/27/18 98.5 78 18 125/65 99 Room Air 08:00 (85) Intake and Output 04/26/18 04/26/18 04/27/18 1414:59 22:59 06:59 IntakeIntake Total 200 ml OutputOutput Total 600 ml BalanceBalance -400 ml RUBY TREVINO NP Apr 27, 2018 11:34
[2018-04-27] MEDS ORDERED: SOD CHLORIDE 0.9% 500 ML IV ONE (12:00)
[2018-04-27 14:00] VITALS: BP 132/72; PULSE 70; RESP 18
--- NOTE | 2018-04-27 16:17 | CONS ---
DATE OF ADMISSION: 04/26/2018 DATE OF CONSULTATION: 04/27/2018 REHABILITATION POST-ADMISSION PHYSICIAN EVALUATION REHABILITATION IMPAIRMENT CATEGORY: Debility secondary to gastrointestinal bleed with diverticulitis and hemorrhoids. ACTIVE COMORBIDITIES: 1. Dysphagia, on dysphagia diet. 2. Atrial fibrillation. 3. Hypertension. 4. Chronic kidney disease. 5. Hyperlipidemia. 6. Diabetes mellitus. 7. Chronic obstructive pulmonary disease. 8. Urinary retention. 9. Impairments in self-care and mobility and mild cognition HISTORY OF PRESENT ILLNESS: The patient is an 87-year-old female with history of multiple medical comorbidities including COPD, diabetes mellitus, atrial fibrillation, who had been noting increased constipation, pain and bright red blood per rectum. The patient presented to the Emergency Room where she was noted to have anemia, rectal bleeding. The patient was noted to have coagulopathy, a colonoscopy was performed and did reveal diverticulitis and internal hemorrhoids. The patient's hospital course also notable for episode of hypoglycemia and lethargy. The patient with significant impairments in self- care and mobility as compared to baseline, and has been cleared to transfer to the rehabilitation unit for comprehensive interdisciplinary rehab care. FUNCTIONAL HISTORY: Prior to recent events, she was independent in self-care tasks and mobility. Currently, she requires moderate assist for self-care and mobility tasks. FAMILY AND SOCIAL HISTORY: The patient reportedly lives at home and hopes to return there upon discharge. PAST MEDICAL HISTORY: 1. Hypertension. 2. Atrial fibrillation. 3. Chronic kidney disease. 4. Hyperlipidemia. 5. Diabetes mellitus. 6. Chronic obstructive pulmonary disease. CURRENT MEDICATIONS: 1. Eliquis 2.5 mg p.o. b.i.d. 2. Colace 100 mg p.o. b.i.d. 3. TriCor 160 mg p.o. daily. 4. Ferrous sulfate 325 p.o. daily. 5. Insulin sliding scale. 6. [place] p.r.n. 7. Travatan 1 drop both eyes at bedtime. 8. Lidoderm patch topically. 9. Zofran p.r.n. ALLERGIES: STATINS. PHYSICAL EXAMINATION: VITAL SIGNS: She is currently afebrile with stable vital signs. HEENT: Extraocular motions appear intact. Oropharynx is clear. NECK: Supple. LUNGS: Clear anteriorly. CARDIAC: S1, S2. ABDOMEN: Soft, nontender, positive bowel sounds. NEUROLOGIC: She is awake and alert and oriented to person and hospital. She will follow simple 1-step commands. She demonstrates antigravity strength in bilateral upper extremity and lower extremity. PLAN: The patient has been admitted for comprehensive interdisciplinary acute rehab and is anticipated to tolerate 3 hours of daily therapy in divided doses for at least 5/7 days a week. The treatment plan will include: 1. Physical therapy to focus on bed mobility, transfers, and household ambulation with the goal of having the patient reach standby assist level. 2. Occupational therapy to focus on hygiene, grooming, dressing, bathing, and toileting activities with the goal of having patient reach standby assist level. 3. Rehabilitation nursing for carryover of therapeutic interventions, the goal of continent of bowel and bladder, and the goal of patient and family education with regard to the aforementioned issues. 4. Cognitive Interdisciplinary program with PT and OT to work on functional cognition, and Neuropsychology for full cognitive testing and oversight of cognitive interventions. REHABILITATION BARRIER: Urinary retention. INTERVENTION FOR BARRIER: Bladder program, will check bladder scan. I and O catheterization p.r.n. postvoid residual greater than 350 mL. I acknowledge that I performed a full physical examination on this patient within 24 hours of admission to the rehabilitation unit. I believe the patient is a good candidate for comprehensive interdisciplinary rehab care and is anticipated to make reasonable goals in a reasonable period of time as outlined above. Dictated By: MARKUS MARIE/NTS Conf#: [id number] DID#: [id number] CC: GLADIS SLATER MD;*EndCC* MTDD
[2018-04-27] MEDS: MULTIVITAMINS THERAPEUTIC TAB PO SCH (17:58)
[2018-04-27 20:00] VITALS: BP 171/58; PULSE 66; RESP 18
[2018-04-27] MEDS: LATANOPROST 0.005% 2.5 ML OPH BOTH EYES SCH (20:48)
[2018-04-27 21:00] VITALS: BP 152/58; RESP 18
[2018-04-28] MEDS: ACCU-CHEK XX SCH (02:00)
[2018-04-28 02:15] VITALS: BP 146/61; PULSE 60; RESP 20
[2018-04-28] MEDS: INSULIN ASPART [NOVOLOG] 3 ML PEN SC SCH ×4 (07:05→21:00)
[2018-04-28] MEDS: metFORMIN 500 MG TAB PO SCH (07:48)
[2018-04-28 08:00] VITALS: BP 123/52; PULSE 69; RESP 20
[2018-04-28] MEDS: FENOFIBRATE 145 MG TAB PO SCH (08:20)
[2018-04-28] MEDS: METOPROLOL 25 MG TAB PO SCH ×2 (08:21→20:42)
[2018-04-28] MEDS: FERROUS SULFATE (EC) 325 MG TAB PO SCH (08:21)
[2018-04-28] MEDS: APIXABAN 5 MG TABLET PO SCH ×2 (08:22→20:41)
[2018-04-28] MEDS: MULTIVITAMINS THERAPEUTIC TAB PO SCH (08:22)
[2018-04-28] MEDS: DOCUSATE SODIUM 100 MG CAP PO SCH ×2 (08:22→20:41)
[2018-04-28] MEDS: LIDOCAINE 5% PATCH TD SCH (08:24)
--- NOTE | 2018-04-28 13:18 | PN ---
Date/Time of Note Date/Time of Note DATE: 04/28/18 TIME: 13:16 Subjective Patient up for activities this AM Objective Vital Signs Date Temp Pulse Resp B/P (MAP) Pulse Ox O2 O2 Flow FiO2 Time Delivery Rate 04/28/18 98.1 69 20 123/52 96 Room Air 08:00 (75) Intake and Output 04/27/18 04/27/18 04/28/18 1515:00 23:00 07:00 IntakeIntake Total 200 ml 700 ml 320 ml OutputOutput Total 75 ml 200 ml 1100 ml BalanceBalance 125 ml 500 ml -780 ml Exam pulm-cta mod transfer Results/Medications Result Diagram: 04/27/18 0620 04/28/18 0642 Results 24 hrs Laboratory Tests Test 04/27/18 17:48 04/27/18 20:52 04/28/18 06:42 04/28/18 07:44 Bedside Glucose 98 116 91 Sodium Level 141 Potassium Level 3.9 Chloride Level 106 Carbon Dioxide Level 29 Anion Gap 6 Blood Urea Nitrogen 24 H Creatinine 1.27 H Est Glomerular Filtrat Rate mL/min Glucose Level 101 Calcium Level 10.4 H Test 04/28/18 11:47 Bedside Glucose 125 Medications Current Medications Diagnostic Test (Pha) (Accu-Chek) 1 ea 02 XX ; Start 04/27/18 at 02:00 Acetaminophen (Tylenol Tab) 650 mg Q6H PRN PO .PAIN 1-3 OR TEMP; Start 04/26/18 at 21:00 Apixaban (Eliquis) 2.5 mg BID PO Last administered on 04/28/18at 08:22; Admin Dose 2.5 MG; Start 04/26/18 at 21:00 Docusate Sodium (Colace) 100 mg BID PO Last administered on 04/28/18at 08:22; Admin Dose 100 MG; Start 04/26/18 at 21:00 Fenofibrate (Tricor) 145 mg DAILY PO Last administered on 04/28/18at 08:20; Admin Dose 145 MG; Start 04/27/18 at 09:00 Ferrous Sulfate (Ferrous Sulfate (Ec)) 325 mg DAILY PO Last administered on 04/28/18at 08:21; Admin Dose 325 MG; Start 04/27/18 at 09:00 Guaifenesin/ Codeine Phosphate (Robitussin Ac Liquid Cup) 5 ml Q4H PRN PO cough; Start 04/26/18 at 21:00 Acetaminophen/ Hydrocodone Bitart ([place] (5/325)) 1 tab Q6H PRN PO .PAIN 4-6 Last administered on 04/27/18at 09:19; Admin Dose 1 TAB; Start 04/26/18 at 21:00 Insulin Aspart (Novolog Insulin Pen) (Adult SC Insulin - Mild Algorithm)... AC MEALS AND BEDTIME SC ; Start 04/26/18 at 21:00 Latanoprost (Xalatan) 1 drop QHS BOTH EYES Last administered on 04/27/18at 20:48; Admin Dose 1 DROP; Start 04/26/18 at 21:00 Lidocaine (Lidoderm) 1 patch DAILY TD Last administered on 04/28/18at 08:24; Admin Dose 1 PATCH; Start 04/27/18 at 09:00 Menthol/Methyl Salicylate (Jose Maxwell) 1 applic TID PRN TOP aching; Start 04/26/18 at 21:00 Metoprolol Tartrate (Lopressor) 25 mg BID PO Last administered on 04/28/18at 08:21; Admin Dose 25 MG; Start 04/26/18 at 21:00 Ondansetron HCl (Zofran Inj) 4 mg Q6H PRN IV NAUSEA/VOMITING; Start 04/26/18 at 21:00 Miscellaneous Information 1 ea NOTE XX ; Start 04/26/18 at 21:00 Glucose (Glutose) 15 gm Q15M PRN PO DECREASED GLUCOSE; Start 04/26/18 at 21:00 Glucose (Glutose) 22.5 gm Q15M PRN PO DECREASED GLUCOSE; Start 04/26/18 at 21: 00 Dextrose (D50w Syringe) 25 ml Q15M PRN IV DECREASED GLUCOSE; Start 04/26/18 at 21:00 Dextrose (D50w Syringe) 50 ml Q15M PRN IV DECREASED GLUCOSE; Start 04/26/18 at 21:00 Glucagon (Glucagen) 1 mg Q15M PRN IM DECREASED GLUCOSE; Start 04/26/18 at 21:00 Glucose (Glutose) 15 gm Q15M PRN BUCCAL DECREASED GLUCOSE; Start 04/26/18 at 21:00 Metformin HCl (Glucophage) 500 mg WITH BREAKFAST PO Last administered on 04/28/18at 07:48; Admin Dose 500 MG; Start 04/27/18 at 07:35 Multivitamins Therapeutic (Theragran) 1 tab DAILY PO Last administered on 04/28/18at 08:22; Admin Dose 1 TAB; Start 04/27/18 at 11:30 Assessment/Plan Additional Assessment/Plan Rehab- Debility secondary to gastrointestinal bleed with diverticulitis and hemorrhoids. Continue interdisciplinary rehab program. Per PT and OT reports patient with memory impairments and problem solving issues. Will request Speech Therapy and Neuropsychology for cognitive evaluation. Dysphagia- dysphagia diet and speech assessment Atrial fibrillation. Hypertension. Chronic kidney disease. Hyperlipidemia. Diabetes mellitus. Chronic obstructive pulmonary disease. Urinary retention- improved today MARKUS BENSON MD Apr 28, 2018 13:18
[2018-04-28 14:00] VITALS: BP 121/58; PULSE 62; RESP 20
--- NOTE | 2018-04-28 14:38 | PN ---
Date/Time of Note Date/Time of Note DATE: 04/28/18 TIME: 14:37 Assessment/Plan VTE Prophylaxis Risk score (from Nsg)>0 risk: 4 SCD applied (from Nsg): Yes Pharmacological prophylaxis: apixaban Lines/Catheters IV Catheter Type (from Nrs): Saline Lock Urinary Cath still in place: No Assessment/Plan Hospital Course SUBJECTIVE: No acute overnight episodes. Sitting up in chair. OBJECTIVE: Vital signs-see below PHYSICAL EXAM: Constitutional: Frail looking, elderly female, not in acute distress psych: nl mood/affect, no complaints Head: atraumatic, normocephalic Eyes: nl conjunctiva, nl sclera ENMT: mucosa pink and moist, nl external ears & nose Neck: non-tender, supple Respiratory: clear to auscultation, normal air movement Cardiovascular: nl pulses, regular rate and rhythm Gastrointestinal: non-tender, soft, bowel sounds active in all 4 quadrants. Musculoskeletal/extremities: nl extremities to inspection, motor strength equal bilaterally, no focal deficit. Normal pulses,no cyanosis, no edema. Neurological: Alert oriented 3,nl speech, nl strength Skin: nl turgor ASSESSMENT/PLAN: An 87-year-old female with history of A. fib was on anticoagulation, hypertension, iron deficiency anemia, prediabetes, dyslipidemia, rectal bleed, status post colonoscopy, was transferred to rehab for decline in functional status... 1. Progressive debility -Continue rehab 2. Status post rectal bleed -s/p colonoscopy 04/21/18, showed int hemorrhoids, colon polyp removed,path showed tubular adenoma and diverticulosis -no further bleeding -stable H&H 3. History of atrial fibrillation, was on anticoagulation prior to admission, which likely contributed to #2. - patient has been cleared for Eliquis per GI and has been getting it. 4. Hypertension -Stable -Continue antihypertensives 5. Iron deficient anemia -cont. oral iron. 6. Dyslipidemia -On TriCor 7. Prediabetes with A1c 6.1. -Stable sugar -carb- controlled diet. 8. Mild RAMA, likely dehydration -stable w/not much fluctuation. DVT prophylaxis: Eliquis Patient was seen in collaboration with Result Diagram: 04/27/18 0620 04/28/18 0642 Results 24hrs Laboratory Tests Test 04/27/18 17:48 04/27/18 20:52 04/28/18 06:42 04/28/18 07:44 Bedside Glucose 98 116 91 Sodium Level 141 Potassium Level 3.9 Chloride Level 106 Carbon Dioxide Level 29 Anion Gap 6 Blood Urea Nitrogen 24 H Creatinine 1.27 H Est Glomerular Filtrat Rate mL/min Glucose Level 101 Calcium Level 10.4 H Test 04/28/18 11:47 Bedside Glucose 125 Exam/Review of Systems Exam Vitals Vital Signs Date Temp Pulse Resp B/P (MAP) Pulse Ox O2 O2 Flow FiO2 Time Delivery Rate 04/28/18 98.1 69 20 123/52 96 Room Air 08:00 (75) Intake and Output 04/27/18 04/27/18 04/28/18 1515:00 23:00 07:00 IntakeIntake Total 200 ml 700 ml 320 ml OutputOutput Total 75 ml 200 ml 1100 ml BalanceBalance 125 ml 500 ml -780 ml Results Results 24hrs Laboratory Tests Test 04/27/18 17:48 04/27/18 20:52 04/28/18 06:42 04/28/18 07:44 Bedside Glucose 98 116 91 Sodium Level 141 Potassium Level 3.9 Chloride Level 106 Carbon Dioxide Level 29 Anion Gap 6 Blood Urea Nitrogen 24 H Creatinine 1.27 H Est Glomerular Filtrat Rate mL/min Glucose Level 101 Calcium Level 10.4 H Test 04/28/18 11:47 Bedside Glucose 125 Medications Medication Current Medications Diagnostic Test (Pha) (Accu-Chek) 1 XX ; Start 04/27/18 at 02:00 Acetaminophen (Tylenol Tab) 650 mg Q6H PRN PO .PAIN 1-3 OR TEMP; Start 04/26/18 at 21:00 Apixaban (Eliquis) 2.5 mg BID PO Last administered on 04/28/18at 08:22; Admin Dose 2.5 MG; Start 04/26/18 at 21:00 Docusate Sodium (Colace) 100 mg BID PO Last administered on 04/28/18at 08:22; Admin Dose 100 MG; Start 04/26/18 at 21:00 Fenofibrate (Tricor) 145 mg DAILY PO Last administered on 04/28/18at 08:20; Admin Dose 145 MG; Start 04/27/18 at 09:00 Ferrous Sulfate (Ferrous Sulfate (Ec)) 325 mg DAILY PO Last administered on 04/28/18at 08:21; Admin Dose 325 MG; Start 04/27/18 at 09:00 Guaifenesin/ Codeine Phosphate (Robitussin Ac Liquid Cup) 5 ml Q4H PRN PO cough; Start 04/26/18 at 21:00 Acetaminophen/ Hydrocodone Bitart ([place] (5/325)) 1 tab Q6H PRN PO .PAIN 4-6 Last administered on 04/27/18at 09:19; Admin Dose 1 TAB; Start 04/26/18 at 21:00 Insulin Aspart (Novolog Insulin Pen) (Adult SC Insulin - Mild Algorithm)... AC MEALS AND BEDTIME SC ; Start 04/26/18 at 21:00 Latanoprost (Xalatan) 1 drop QHS BOTH EYES Last administered on 04/27/18at 20:48; Admin Dose 1 DROP; Start 04/26/18 at 21:00 Lidocaine (Lidoderm) 1 patch DAILY TD Last administered on 04/28/18at 08:24; Ad min Dose 1 PATCH; Start 04/27/18 at 09:00 Menthol/Methyl Salicylate (Jose Maxwell) 1 applic TID PRN TOP aching; Start 04/26/18 at 21:00 Metoprolol Tartrate (Lopressor) 25 mg BID PO Last administered on 04/28/18at 08:21; Admin Dose 25 MG; Start 04/26/18 at 21:00 Ondansetron HCl (Zofran Inj) 4 mg Q6H PRN IV NAUSEA/VOMITING; Start 04/26/18 at 21:00 Miscellaneous Information 1 ea NOTE XX ; Start 04/26/18 at 21:00 Glucose (Glutose) 15 gm Q15M PRN PO DECREASED GLUCOSE; Start 04/26/18 at 21:00 Glucose (Glutose) 22.5 gm Q15M PRN PO DECREASED GLUCOSE; Start 04/26/18 at 21:00 Dextrose (D50w Syringe) 25 ml Q15M PRN IV DECREASED GLUCOSE; Start 04/26/18 at 21:00 Dextrose (D50w Syringe) 50 ml Q15M PRN IV DECREASED GLUCOSE; Start 04/26/18 at 21:00 Glucagon (Glucagen) 1 mg Q15M PRN IM DECREASED GLUCOSE; Start 04/26/18 at 21:00 Glucose (Glutose) 15 gm Q15M PRN BUCCAL DECREASED GLUCOSE; Start 04/26/18 at 21:00 Metformin HCl (Glucophage) 500 mg WITH BREAKFAST PO Last administered on 04/28/18at 07:48; Admin Dose 500 MG; Start 04/27/18 at 07:35 Multivitamins Therapeutic (Theragran) 1 tab DAILY PO Last administered on 04/28/18at 08:22; Admin Dose 1 TAB; Start 04/27/18 at 11:30 RUBY TREVINO NP Apr 28, 2018 14:38
[2018-04-28 20:00] VITALS: BP 126/60; PULSE 91; RESP 19
[2018-04-28] MEDS: LATANOPROST 0.005% 2.5 ML OPH BOTH EYES SCH (20:41)
[2018-04-29 02:00] VITALS: BP 136/69; PULSE 88; RESP 18
[2018-04-29] MEDS: ACCU-CHEK XX SCH (02:00)
[2018-04-29] MEDS: INSULIN ASPART [NOVOLOG] 3 ML PEN SC SCH ×4 (07:05→20:38)
[2018-04-29 08:00] VITALS: BP 129/58; PULSE 65; RESP 18
[2018-04-29] MEDS: metFORMIN 500 MG TAB PO SCH (08:20)
[2018-04-29] MEDS: FERROUS SULFATE (EC) 325 MG TAB PO SCH (08:34)
[2018-04-29] MEDS: FENOFIBRATE 145 MG TAB PO SCH (08:34)
[2018-04-29] MEDS: MULTIVITAMINS THERAPEUTIC TAB PO SCH (08:35)
[2018-04-29] MEDS: DOCUSATE SODIUM 100 MG CAP PO SCH ×2 (08:35→20:25)
[2018-04-29] MEDS: METOPROLOL 25 MG TAB PO SCH ×2 (08:35→20:26)
[2018-04-29] MEDS: APIXABAN 5 MG TABLET PO SCH ×2 (08:35→20:25)
[2018-04-29] MEDS: LIDOCAINE 5% PATCH TD SCH (08:41)
--- NOTE | 2018-04-29 12:11 | PN ---
Date/Time of Note Date/Time of Note DATE: 04/29/18 TIME: 12:10 Assessment/Plan VTE Prophylaxis Risk score (from Nsg)>0 risk: 4 SCD applied (from Nsg): Yes Pharmacological prophylaxis: apixaban Lines/Catheters IV Catheter Type (from Nrs): Saline Lock Urinary Cath still in place: No Assessment/Plan Hospital Course SUBJECTIVE: No acute overnight episodes. Sitting up in chair. OBJECTIVE: Vital signs-see below PHYSICAL EXAM: Constitutional: Frail looking, elderly female, not in acute distress psych: nl mood/affect, no complaints Head: atraumatic, normocephalic Eyes: nl conjunctiva, nl sclera ENMT: mucosa pink and moist, nl external ears & nose Neck: non-tender, supple Respiratory: clear to auscultation, normal air movement Cardiovascular: nl pulses, regular rate and rhythm Gastrointestinal: non-tender, soft, bowel sounds active in all 4 quadrants. Musculoskeletal/extremities: nl extremities to inspection, motor strength equal bilaterally, no focal deficit. Normal pulses,no cyanosis, no edema. Neurological: Alert oriented 3,nl speech, nl strength Skin: nl turgor ASSESSMENT/PLAN: An 87-year-old female with history of A. fib was on anticoagulation, hypertension, iron deficiency anemia, prediabetes, dyslipidemia, rectal bleed, status post colonoscopy, was transferred to rehab for decline in functional status... 1. Progressive debility -Continue rehab 2. Status post rectal bleed -s/p colonoscopy 04/21/18, showed int hemorrhoids, colon polyp removed,path showed tubular adenoma and diverticulosis -no further bleeding -stable H&H 3. History of atrial fibrillation, was on anticoagulation prior to admission, which likely contributed to #2. - patient has been cleared for Eliquis per GI and has been getting it. 4. Hypertension -Stable -Continue antihypertensives 5. Iron deficient anemia -cont. oral iron. 6. Dyslipidemia -On TriCor 7. Prediabetes with A1c 6.1. -Stable sugar -carb- controlled diet. 8. Mild RAMA, likely dehydration -stable w/not much fluctuation. DVT prophylaxis: Eliquis Patient was seen in collaboration with Result Diagram: 04/27/18 0620 04/28/18 0642 Results 24hrs Laboratory Tests Test 04/28/18 17:33 04/28/18 20:40 04/29/18 08:01 04/29/18 11:56 Bedside Glucose 102 115 88 105 Exam/Review of Systems Exam Vitals Vital Signs Date Temp Pulse Resp B/P (MAP) Pulse Ox O2 O2 Flow FiO2 Time Delivery Rate 04/29/18 98.2 65 18 129/58 96 Room Air 08:00 (81) Intake and Output 04/28/18 04/28/18 04/29/18 1515:00 23:00 07:00 IntakeIntake Total 580 ml OutputOutput Total 300 ml 143 ml 12 ml BalanceBalance -300 ml 437 ml -12 ml Results Results 24hrs Laboratory Tests Test 04/28/18 17:33 04/28/18 20:40 04/29/18 08:01 04/29/18 11:56 Bedside Glucose 102 115 88 105 Medications Medication Current Medications Diagnostic Test (Pha) (Accu-Chek) 1 02 XX ; Start 04/27/18 at 02:00 Acetaminophen (Tylenol Tab) 650 mg Q6H PRN PO .PAIN 1-3 OR TEMP; Start 04/26/18 at 21:00 Apixaban (Eliquis) 2.5 mg BID PO Last administered on 04/29/18 08:35; Admin Dose 2.5 MG; Start 04/26/18 at 21:00 Docusate Sodium (Colace) 100 mg BID PO Last administered on 04/29/18 08:35; Admin Dose 100 MG; Start 04/26/18 at 21:00 Fenofibrate (Tricor) 145 mg DAILY PO Last administered on 04/29/18 08:34; Admin Dose 145 MG; Start 04/27/18 at 09:00 Ferrous Sulfate (Ferrous Sulfate (Ec)) 325 mg DAILY PO Last administered on 04/29/18 08:34; Admin Dose 325 MG; Start 04/27/18 at 09:00 Guaifenesin/ Codeine Phosphate (Robitussin Ac Liquid Cup) 5 ml Q4H PRN PO cough; Start 04/26/18 at 21:00 Acetaminophen/ Hydrocodone Bitart ([place] (5/325)) 1 tab Q6H PRN PO .PAIN 4-6 Last administered on 04/27/18 09:19; Admin Dose 1 TAB; Start 04/26/18 at 21:00 Insulin Aspart (Novolog Insulin Pen) (Adult SC Insulin - Mild Algorithm)... AC MEALS AND BEDTIME SC ; Start 04/26/18 at 21:00 Latanoprost (Xalatan) 1 drop QHS BOTH EYES Last administered on 04/28/18at 20 :41; Admin Dose 1 DROP; Start 04/26/18 at 21:00 Lidocaine (Lidoderm) 1 patch DAILY TD Last administered on 04/29/18 08:41; Admin Dose 1 PATCH; Start 04/27/18 at 09:00 Menthol/Methyl Salicylate (Jose Maxwell) 1 applic TID PRN TOP aching; Start 04/26/18 at 21:00 Metoprolol Tartrate (Lopressor) 25 mg BID PO Last administered on 04/29/18 08:35; Admin Dose 25 MG; Start 04/26/18 at 21:00 Ondansetron HCl (Zofran Inj) 4 mg Q6H PRN IV NAUSEA/VOMITING; Start 04/26/18 at 21:00 Miscellaneous Information 1 ea NOTE XX ; Start 04/26/18 at 21:00 Glucose (Glutose) 15 gm Q15M PRN PO DECREASED GLUCOSE; Start 04/26/18 at 21:00 Glucose (Glutose) 22.5 gm Q15M PRN PO DECREASED GLUCOSE; Start 04/26/18 at 21:00 Dextrose (D50w Syringe) 25 ml Q15M PRN IV DECREASED GLUCOSE; Start 04/26/18 at 21:00 Dextrose (D50w Syringe) 50 ml Q15M PRN IV DECREASED GLUCOSE; Start 04/26/18 at 21:00 Glucagon (Glucagen) 1 mg Q15M PRN IM DECREASED GLUCOSE; Start 04/26/18 at 21:00 Glucose (Glutose) 15 gm Q15M PRN BUCCAL DECREASED GLUCOSE; Start 04/26/18 at 21:00 Metformin HCl (Glucophage) 500 mg WITH BREAKFAST PO Last administered on 04/29/18at 08:20; Admin Dose 500 MG; Start 04/27/18 at 07:35 Multivitamins Therapeutic (Theragran) 1 tab DAILY PO Last administered on 04/29/18 08:35; Admin Dose 1 TAB; Start 04/27/18 at 11:30 RUBY TREVINO NP Apr 29, 2018 12:10
--- NOTE | 2018-04-29 13:44 | PN ---
Date/Time of Note Date/Time of Note DATE: 04/29/18 TIME: 13:43 Subjective Feeling better today Objective Vital Signs Date Temp Pulse Resp B/P (MAP) Pulse Ox O2 O2 Flow FiO2 Time Delivery Rate 04/29/18 98.2 65 18 129/58 96 Room Air 08:00 (81) Intake and Output 04/28/18 04/28/18 04/29/18 1515:00 23:00 07:00 IntakeIntake Total 580 ml OutputOutput Total 300 ml 143 ml 12 ml BalanceBalance -300 ml 437 ml -12 ml Exam pulm-cta cga ambulation Results/Medications Result Diagram: 04/27/18 0620 04/28/18 0642 Results 24 hrs Laboratory Tests Test 04/28/18 17:33 04/28/18 20:40 04/29/18 08:01 04/29/18 11:56 Bedside Glucose 102 115 88 105 Medications Current Medications Diagnostic Test (Pha) (Accu-Chek) 1 ea 02 XX ; Start 04/27/18 at 02:00 Acetaminophen (Tylenol Tab) 650 mg Q6H PRN PO .PAIN 1-3 OR TEMP; Start 04/26/18 at 21:00 Apixaban (Eliquis) 2.5 mg BID PO Last administered on 04/29/18 08:35; Admin Dose 2.5 MG; Start 04/26/18 at 21:00 Docusate Sodium (Colace) 100 mg BID PO Last administered on 04/29/18 08:35; Admin Dose 100 MG; Start 04/26/18 at 21:00 Fenofibrate (Tricor) 145 mg DAILY PO Last administered on 04/29/18at 08:34; Admin Dose 145 MG; Start 04/27/18 at 09:00 Ferrous Sulfate (Ferrous Sulfate (Ec)) 325 mg DAILY PO Last administered on 04/29/18 08:34; Admin Dose 325 MG; Start 04/27/18 at 09:00 Guaifenesin/ Codeine Phosphate (Robitussin Ac Liquid Cup) 5 ml Q4H PRN PO cough; Start 04/26/18 at 21:00 Acetaminophen/ Hydrocodone Bitart ([place] (5/325)) 1 tab Q6H PRN PO .PAIN 4-6 Last administered on 04/27/18at 09:19; Admin Dose 1 TAB; Start 04/26/18 at 21:00 Insulin Aspart (Novolog Insulin Pen) (Adult SC Insulin - Mild Algorithm)... AC MEALS AND BEDTIME SC ; Start 04/26/18 at 21:00 Latanoprost (Xalatan) 1 drop QHS BOTH EYES Last administered on 04/28/18at 20:41; Admin Dose 1 DROP; Start 04/26/18 at 21:00 Lidocaine (Lidoderm) 1 patch DAILY TD Last administered on 04/29/18at 08:41; Admin Dose 1 PATCH; Start 04/27/18 at 09:00 Menthol/Methyl Salicylate (Jose Maxwell) 1 applic TID PRN TOP aching; Start 04/26/18 at 21:00 Metoprolol Tartrate (Lopressor) 25 mg BID PO Last administered on 04/29/18at 08:35; Admin Dose 25 MG; Start 04/26/18 at 21:00 Ondansetron HCl (Zofran Inj) 4 mg Q6H PRN IV NAUSEA/VOMITING; Start 04/26/18 at 21:00 Miscellaneous Information 1 ea NOTE XX ; Start 04/26/18 at 21:00 Glucose (Glutose) 15 gm Q15M PRN PO DECREASED GLUCOSE; Start 04/26/18 at 21:00 Glucose (Glutose) 22.5 gm Q15M PRN PO DECREASED GLUCOSE; Start 04/26/18 at 21:00 Dextrose (D50w Syringe) 25 ml Q15M PRN IV DECREASED GLUCOSE; Start 04/26/18 at 21:00 Dextrose (D50w Syringe) 50 ml Q15M PRN IV DECREASED GLUCOSE; Start 04/26/18 at 21:00 Glucagon (Glucagen) 1 mg Q15M PRN IM DECREASED GLUCOSE; Start 04/26/18 at 21:00 Glucose (Glutose) 15 gm Q15M PRN BUCCAL DECREASED GLUCOSE; Start 04/26/18 at 21:00 Metformin HCl (Glucophage) 500 mg WITH BREAKFAST PO Last administered on 04/29/18at 08:20; Admin Dose 500 MG; Start 04/27/18 at 07:35 Multivitamins Therapeutic (Theragran) 1 tab DAILY PO Last administered on 04/29at 08:35; Admin Dose 1 TAB; Start 04/27/18 at 11:30 Assessment/Plan Additional Assessment/Plan Rehab- Tox Encephalopathy, Debility secondary to gastrointestinal bleed with diverticulitis and hemorrhoids. Continue rehab treatment plan Dysphagia- dysphagia diet Atrial fibrillation. Hypertension. Chronic kidney disease. Hyperlipidemia. Diabetes mellitus. Chronic obstructive pulmonary disease. Urinary retention- improved today MARKUS BENSON MD Apr 29, 2018 13:44
[2018-04-29 20:00] VITALS: BP 134/64; PULSE 71; RESP 18
[2018-04-29] MEDS: LATANOPROST 0.005% 2.5 ML OPH BOTH EYES SCH (20:36)
[2018-04-30] VITALS (7 sets, daily range): BP systolic 94–153; BP diastolic 56–70; PULSE 64–75; RESP 16–18
--- NOTE | 2018-04-30 00:12 | CONS ---
DATE OF ADMISSION: 04/26/2018 DATE OF CONSULTATION: 04/29/2018 TYPE OF CONSULTATION: Psychological REFERRING PHYSICIAN: Markus Skinner MD CONSULTING PSYCHOLOGIST: Elise Saleem, PhD REASON FOR CONSULTATION: This consultation was requested by Dr. Avinash Skinner in order to evaluate t carla cognitive and emotional functioning of this patient related to her present medical condition. HISTORY OF PRESENT ILLNESS: The patient is an 87-year-old female. She has a history of multiple med ical problems including COPD, diabetes, atrial fibrillation and other. The patient was having medica l problems and was brought to the Emergency Room. The patient was eventually cleared medically and t ransferred to acute rehabilitation unit for acute multidisciplinary rehabilitation. The patient is m otivated to get better and does want to return to her previous level of functioning. FAMILY AND SOCIAL HISTORY: The patient reports that she has been out here for 4-1/2 years from [place], [place]. The patient lives with her daughter. There is another roommate that rents a room. T he patient does want to return there after discharge. MEDICATIONS: The patient is currently not on any psychotropic medications. SUBSTANCE USE: The patient denies any use of alcohol or drugs. The patient reports that she does no t smoke. MENTAL STATUS EXAMINATION: APPEARANCE: The patient was seen in her wheelchair. She appears to be of average height and weight. She has glasses. The patient is right-handed. BEHAVIOR: The patient was cooperative during the consultation. The patient did attempt to answer al l questions presented to her by the interviewer. MOOD AND AFFECT: The patient's mood appears to be a little frustrated. The patient does say that sh e is frustrated by being in the hospital. The patient does deny any aspect of depression, but appear s to be just slightly depressed about her condition and slightly anxious. PERCEPTION: The patient reports no hallucinations or delusions. The patient was alert to person, bu t not exactly to place, situation and time. MEMORY AND COGNITION: The patient's memory and cognition appear to be impaired. She did have diffic ulty recalling some recent and remote events. The patient could not name the hospital. The patient was not sure which month it was if it was April or May and was not sure what year it was if it w as 2018 or 2019. The patient was able to spell "world" backwards. The patient was able to do 1 seri al 7 subtraction from 100, but then made errors and could not correct. The patient could not state w ho the president & founder is, the governor of the state of [place], or the mayor of [facility]. The patient's cognitions do appear to be slightly impaired at this time. INTELLIGENCE: Intelligence appears to fall in the average range when she was functioning adequately. INSIGHT: Poor. JUDGMENT: Fair. THOUGHT CONTENT: The patient is concern about her present medical condition. The patient does want to return to previous level of functioning. The patient is not able to process things as she would l irma. The patient is frustrated by this. DISCUSSION: The patient can likely benefit from some cognitive/behavioral psychotherapy. The psycho therapy would focus on her underlying level of cognitive dysfunction. The patient might benefit from having some memory therapy regarding using a memory book to try and recall cognitions. This will be focused on in psychotherapy as well. DIAGNOSTIC IMPRESSION: 1. F06.31, mood disorder due to multiple medical problems with depressive features. 2. F06.8, cognitive disorder, not otherwise specified. Thank you very much, Dr. Avinash Skinner, for referring this individual. Please do not hesitate to priscilla zuluaga if you have additional questions. Dictated By: ELISE SALEEM PHD KASH/TORIN Conf#: [id number] DID#: [id number] CC: GLADIS SLATER MD; MARKUS SKINNER MD;*End*
[2018-04-30] MEDS: ACCU-CHEK XX SCH (02:00)
[2018-04-30] MEDS: INSULIN ASPART [NOVOLOG] 3 ML PEN SC SCH ×4 (07:05→22:00)
[2018-04-30] MEDS: HYDROCODONE/APAP (5/325) TAB PO PRN ×2 (08:25→16:01)
[2018-04-30] MEDS: metFORMIN 500 MG TAB PO SCH (08:25)
[2018-04-30] MEDS: FERROUS SULFATE (EC) 325 MG TAB PO SCH (09:49)
[2018-04-30] MEDS: DOCUSATE SODIUM 100 MG CAP PO SCH (09:49)
[2018-04-30] MEDS: APIXABAN 5 MG TABLET PO SCH ×2 (09:49→22:01)
[2018-04-30] MEDS: FENOFIBRATE 145 MG TAB PO SCH (09:50)
[2018-04-30] MEDS: MULTIVITAMINS THERAPEUTIC TAB PO SCH (09:50)
[2018-04-30] MEDS: LIDOCAINE 5% PATCH TD SCH (09:50)
[2018-04-30] MEDS: METOPROLOL 25 MG TAB PO SCH ×2 (09:50→22:04)
--- NOTE | 2018-04-30 13:08 | PN ---
Date/Time of Note Date/Time of Note DATE: 04/30/18 TIME: 13:07 Subjective Feeling better Objective Vital Signs Date Temp Pulse Resp B/P (MAP) Pulse Ox O2 O2 Flow FiO2 Time Delivery Rate 04/30/18 98.8 68 18 153/67 93 Room Air 07:30 (95) Intake and Output 04/29/18 04/29/18 04/30/18 1515:00 23:00 07:00 IntakeIntake Total 720 ml 950 ml OutputOutput Total 26 ml BalanceBalance 694 ml 950 ml Exam pulm-cta abd-soft cga ambulation Results/Medications Result Diagram: 04/27/18 0620 04/28/18 0642 Results 24 hrs Laboratory Tests Test 04/29/18 17:29 04/29/18 20:23 04/30/18 08:22 04/30/18 12:01 Bedside Glucose 110 168 129 133 Medications Current Medications Diagnostic Test (Pha) (Accu-Chek) 1 ea 02 XX ; Start 04/27/18 at 02:00 Acetaminophen (Tylenol Tab) 650 mg Q6H PRN PO .PAIN 1-3 OR TEMP; Start 04/26/18 at 21:00 Apixaban (Eliquis) 2.5 mg BID PO Last administered on 04/30/18at 09:49; Admin Dose 2.5 MG; Start 04/26/18 at 21:00 Fenofibrate (Tricor) 145 mg DAILY PO Last administered on 04/30/18at 09:50; Admin Dose 145 MG; Start 04/27/18 at 09:00 Ferrous Sulfate (Ferrous Sulfate (Ec)) 325 mg DAILY PO Last administered on 04/30/18at 09:49; Admin Dose 325 MG; Start 04/27/18 at 09:00 Guaifenesin/ Codeine Phosphate (Robitussin Ac Liquid Cup) 5 ml Q4H PRN PO cough; Start 04/26/18 at 21:00 Acetaminophen/ Hydrocodone Bitart ([place] (5/325)) 1 tab Q6H PRN PO .PAIN 4-6 Last administered on 04/30/18at 08:25; Admin Dose 1 TAB; Start 04/26/18 at 21:00 Insulin Aspart (Novolog Insulin Pen) (Adult SC Insulin - Mild Algorithm)... AC MEALS AND BEDTIME SC ; Start 04/26/18 at 21:00 Latanoprost (Xalatan) 1 drop QHS BOTH EYES Last administered on 04/29/18at 20:36; Admin Dose 1 DROP; Start 04/26/18 at 21:00 Lidocaine (Lidoderm) 1 patch DAILY TD Last administered on 04/30/18at 09:50; Admin Dose 1 PATCH; Start 04/27/18 at 09:00 Menthol/Methyl Salicylate (Jose Maxwell) 1 applic TID PRN TOP aching; Start 04/26/18 at 21:00 Metoprolol Tartrate (Lopressor) 25 mg BID PO Last administered on 04/30/18at 09:50; Admin Dose 25 MG; Start 04/26/18 at 21:00 Ondansetron HCl (Zofran Inj) 4 mg Q6H PRN IV NAUSEA/VOMITING; Start 04/26/18 at 21:00 Miscellaneous Information 1 ea NOTE XX ; Start 04/26/18 at 21:00 Glucose (Glutose) 15 gm Q15M PRN PO DECREASED GLUCOSE; Start 04/26/18 at 21:00 Glucose (Glutose) 22.5 gm Q15M PRN PO DECREASED GLUCOSE; Start 04/26/18 at 21:00 Dextrose (D50w Syringe) 25 ml Q15M PRN IV DECREASED GLUCOSE; Start 04/26/18 at 21:00 Dextrose (D50w Syringe) 50 ml Q15M PRN IV DECREASED GLUCOSE; Start 04/26/18 at 21:00 Glucagon (Glucagen) 1 mg Q15M PRN IM DECREASED GLUCOSE; Start 04/26/18 at 21:00 Glucose (Glutose) 15 gm Q15M PRN BUCCAL DECREASED GLUCOSE; Start 04/26/18 at 21:00 Metformin HCl (Glucophage) 500 mg WITH BREAKFAST PO Last administered on 04/30/18at 08:25; Admin Dose 500 MG; Start 04/27/18 at 07:35 Multivitamins Therapeutic (Theragran) 1 tab DAILY PO Last administered on 04/30/18at 09:50; Admin Dose 1 TAB; Start 04/27/18 at 11:30 Docusate Sodium (Colace Liquid Cup) 100 mg BID PO ; Start 04/30/18 at 21:00 Assessment/Plan Additional Assessment/Plan Rehab- Tox Encephalopathy, Debility secondary to gastrointestinal bleed with diverticulitis and hemorrhoids. Continue rehab activities Dysphagia- followed by speech Atrial fibrillation. Hypertension. Chronic kidney disease. Hyperlipidemia. Diabetes mellitus. Chronic obstructive pulmonary disease. Urinary retention- improved today MARKUS BENSON MD Apr 30, 2018 13:08
--- NOTE | 2018-04-30 14:01 | PN ---
Date/Time of Note Date/Time of Note DATE: 04/30/18 TIME: 14:01 Assessment/Plan VTE Prophylaxis Risk score (from Nsg)>0 risk: 4 SCD applied (from Nsg): Yes Pharmacological prophylaxis: apixaban Lines/Catheters IV Catheter Type (from Nrs): Saline Lock Urinary Cath still in place: No Assessment/Plan Hospital Course SUBJECTIVE: No acute overnight episodes. Sitting up in chair. OBJECTIVE: Vital signs-see below PHYSICAL EXAM: Constitutional: Frail looking, elderly female, not in acute distress psych: nl mood/affect, no complaints Head: atraumatic, normocephalic Eyes: nl conjunctiva, nl sclera ENMT: mucosa pink and moist, nl external ears & nose Neck: non-tender, supple Respiratory: clear to auscultation, normal air movement Cardiovascular: nl pulses, regular rate and rhythm Gastrointestinal: non-tender, soft, bowel sounds active in all 4 quadrants. Musculoskeletal/extremities: nl extremities to inspection, motor strength equal bilaterally, no focal deficit. Normal pulses,no cyanosis, no edema. Neurological: Alert oriented 3,nl speech, nl strength Skin: nl turgor ASSESSMENT/PLAN: An 87-year-old female with history of A. fib was on anticoagulation, hypertension, iron deficiency anemia, prediabetes, dyslipidemia, rectal bleed, status post colonoscopy, was transferred to rehab for decline in functional status... 1. Progressive debility -Continue rehab 2. Status post rectal bleed -s/p colonoscopy 04/21/18, showed int hemorrhoids, colon polyp removed,path showed tubular adenoma and diverticulosis -no further bleeding -stable H&H 3. History of atrial fibrillation, was on anticoagulation prior to admission, which likely contributed to #2. - patient has been cleared for Eliquis per GI and has been getting it. 4. Hypertension -Stable -Continue antihypertensives 5. Iron deficient anemia -cont. oral iron. 6. Dyslipidemia -On TriCor 7. Prediabetes with A1c 6.1. -Stable sugar -carb- controlled diet. 8. Mild RAMA, likely dehydration -stable w/not much fluctuation. DVT prophylaxis: Eliquis Patient was seen in collaboration with Result Diagram: 04/27/18 0620 04/28/18 0642 Results 24hrs Laboratory Tests Test 04/29/18 17:29 04/29/18 20:23 04/30/18 08:22 04/30/18 12:01 Bedside Glucose 110 168 129 133 Exam/Review of Systems Exam Vitals Vital Signs Date Temp Pulse Resp B/P (MAP) Pulse Ox O2 O2 Flow FiO2 Time Delivery Rate 04/30/18 98.8 68 18 153/67 93 Room Air 07:30 (95) Intake and Output 04/29/18 04/29/18 04/30/18 1515:00 23:00 07:00 IntakeIntake Total 720 ml 950 ml OutputOutput Total 26 ml BalanceBalance 694 ml 950 ml Results Results 24hrs Laboratory Tests Test 04/29/18 17:29 04/29/18 20:23 04/30/18 08:22 04/30/18 12:01 Bedside Glucose 110 168 129 133 Medications Medication Current Medications Diagnostic Test (Pha) (Accu-Chek) 1 XX ; Start 04/27/18 at 02:00 Acetaminophen (Tylenol Tab) 650 mg Q6H PRN PO .PAIN 1-3 OR TEMP; Start 04/26/18 at 21:00 Apixaban (Eliquis) 2.5 mg BID PO Last administered on 04/30/18at 09:49; Admin Dose 2.5 MG; Start 04/26/18 at 21:00 Fenofibrate (Tricor) 145 mg DAILY PO Last administered on 04/30/18at 09:50; Admin Dose 145 MG; Start 04/27/18 at 09:00 Ferrous Sulfate (Ferrous Sulfate (Ec)) 325 mg DAILY PO Last administered on 04/30/18at 09:49; Admin Dose 325 MG; Start 04/27/18 at 09:00 Guaifenesin/ Codeine Phosphate (Robitussin Ac Liquid Cup) 5 ml Q4H PRN PO cough; Start 04/26/18 at 21:00 Acetaminophen/ Hydrocodone Bitart ([place] (5/325)) 1 tab Q6H PRN PO .PAIN 4-6 Last administered on 04/30/18at 08:25; Admin Dose 1 TAB; Start 04/26/18 at 21:00 Insulin Aspart (Novolog Insulin Pen) (Adult SC Insulin - Mild Algorithm)... AC MEALS AND BEDTIME SC ; Start 04/26/18 at 21:00 Latanoprost (Xalatan) 1 drop QHS BOTH EYES Last administered on 04/29/18at 20:36; Admin Dose 1 DROP; Start 04/26/18 at 21:00 Lidocaine (Lidoderm) 1 patch DAILY TD Last administered on 04/30/18at 09:50; Admin Dose 1 PATCH; Start 04/27/18 at 09:00 Menthol/Methyl Salicylate (Jose Maxwell) 1 applic TID PRN TOP aching; Start 04/26/18 at 21:00 Metoprolol Tartrate (Lopressor) 25 mg BID PO Last administered on 04/30/18at 09:50; Admin Dose 25 MG; Start 04/26/18 at 21:00 Ondansetron HCl (Zofran Inj) 4 mg Q6H PRN IV NAUSEA/VOMITING; Start 04/26/18 at 21:00 Miscellaneous Information 1 ea NOTE XX ; Start 04/26/18 at 21:00 Glucose (Glutose) 15 gm Q15M PRN PO DECREASED GLUCOSE; Start 04/26/18 at 21:00 Glucose (Glutose) 22.5 gm Q15M PRN PO DECREASED GLUCOSE; Start 04/26/18 at 21:00 Dextrose (D50w Syringe) 25 ml Q15M PRN IV DECREASED GLUCOSE; Start 04/26/18 at 21:00 Dextrose (D50w Syringe) 50 ml Q15M PRN IV DECREASED GLUCOSE; Start 04/26/18 at 21:00 Glucagon (Glucagen) 1 mg Q15M PRN IM DECREASED GLUCOSE; Start 04/26/18 at 21:00 Glucose (Glutose) 15 gm Q15M PRN BUCCAL DECREASED GLUCOSE; Start 04/26/18 at 21 :00 Metformin HCl (Glucophage) 500 mg WITH BREAKFAST PO Last administered on 04/30/18at 08:25; Admin Dose 500 MG; Start 04/27/18 at 07:35 Multivitamins Therapeutic (Theragran) 1 tab DAILY PO Last administered on 04/30/18 09:50; Admin Dose 1 TAB; Start 04/27/18 at 11:30 Docusate Sodium (Colace Liquid Cup) 100 mg BID PO ; Start 04/30/18 at 21:00 RUBY TREVINO NP Apr 30, 2018 14:01
[2018-04-30] MEDS: LATANOPROST 0.005% 2.5 ML OPH BOTH EYES SCH (22:00)
[2018-04-30] MEDS: DOCUSATE SODIUM 10 MG/ML (10ML CUP) PO SCH (22:01)
[2018-05-01] MEDS: ACCU-CHEK XX SCH (02:00)
[2018-05-01 02:29] VITALS: BP 162/72; PULSE 67; RESP 19
[2018-05-01 04:00] VITALS: BP 142/76; PULSE 66; RESP 16
[2018-05-01 07:00] VITALS: BP 183/71; PULSE 66; RESP 18
[2018-05-01] MEDS: INSULIN ASPART [NOVOLOG] 3 ML PEN SC SCH ×4 (07:05→21:00)
[2018-05-01] MEDS: metFORMIN 500 MG TAB PO SCH (07:56)
[2018-05-01] MEDS: METOPROLOL 25 MG TAB PO SCH (09:24)
[2018-05-01 09:25] VITALS: BP 153/94; RESP 19
[2018-05-01] MEDS: APIXABAN 5 MG TABLET PO SCH ×2 (09:25→21:15)
[2018-05-01] MEDS: FENOFIBRATE 145 MG TAB PO SCH (09:25)
[2018-05-01] MEDS: HYDROCODONE/APAP (5/325) TAB PO PRN (09:25)
[2018-05-01] MEDS: FERROUS SULFATE (EC) 325 MG TAB PO SCH (09:25)
[2018-05-01] MEDS: DOCUSATE SODIUM 10 MG/ML (10ML CUP) PO SCH ×2 (09:25→21:00)
[2018-05-01] MEDS: MULTIVITAMINS THERAPEUTIC TAB PO SCH (09:25)
[2018-05-01] MEDS: LACTULOSE 30ML CUP PO PRN (09:26)
[2018-05-01] MEDS: LIDOCAINE 5% PATCH TD SCH (09:26)
--- NOTE | 2018-05-01 10:42 | PN ---
Date/Time of Note Date/Time of Note DATE: 05/01/18 TIME: 10:40 Assessment/Plan VTE Prophylaxis Risk score (from Nsg)>0 risk: 4 SCD applied (from Nsg): Yes Pharmacological prophylaxis: apixaban Lines/Catheters IV Catheter Type (from Nrsg): Saline Lock Urinary Cath still in place: No Assessment/Plan Hospital Course SUBJECTIVE:BP slightly high.no pain, no acute distress. OBJECTIVE: Vital signs-see below PHYSICAL EXAM: Constitutional: Frail looking, elderly female, not in acute distress psych: nl mood/affect, no complaints Head: atraumatic, normocephalic Eyes: nl conjunctiva, nl sclera ENMT: mucosa pink and moist, nl external ears & nose Neck: non-tender, supple Respiratory: clear to auscultation, normal air movement Cardiovascular: nl pulses, regular rate and rhythm Gastrointestinal: non-tender, soft, bowel sounds active in all 4 quadrants. Musculoskeletal/extremities: nl extremities to inspection, motor strength equal bilaterally, no focal deficit. Normal pulses,no cyanosis, no edema. Neurological: Alert oriented 3,nl speech, nl strength Skin: nl turgor ASSESSMENT/PLAN: An 87-year-old female with history of A. fib was on anticoagulation, hypertension, iron deficiency anemia, prediabetes, dyslipidemia, rectal bleed, status post colonoscopy, was transferred to rehab for decline in functional status... 1. Progressive debility -Continue rehab 2. Status post rectal bleed -s/p colonoscopy 04/21/18, showed int hemorrhoids, colon polyp removed,path show ed tubular adenoma and diverticulosis -no further bleeding -stable H&H 3. History of atrial fibrillation, was on anticoagulation prior to admission, which likely contributed to #2. - patient has been cleared for Eliquis per GI and has been getting it. 4. Hypertension -needs more control, will increase BB to 50 bid. 5. Iron deficient anemia -cont. oral iron. 6. Dyslipidemia -On TriCor 7. Prediabetes with A1c 6.1. -Stable sugar -carb- controlled diet. 8. Mild RAMA, likely dehydration -stable w/not much fluctuation. DVT prophylaxis: Eliquis Patient was seen in collaboration with Result Diagram: 04/27/18 0620 04/28/18 0642 Results 24hrs Laboratory Tests Test 04/30/18 12:01 04/30/18 17:30 04/30/18 22:05 05/01/18 07:54 Bedside Glucose 133 92 99 100 Exam/Review of Systems Exam Vitals Vital Signs Date Temp Pulse Resp B/P (MAP) Pulse Ox O2 O2 Flow FiO2 Time Delivery Rate 05/01/18 98.4 66 18 183/71 93 Room Air 07:00 (108) Intake and Output 04/30/18 04/30/18 05/01/18 1515:00 23:00 07:00 IntakeIntake Total 500 ml 200 ml OutputOutput Total 200 ml 350 ml BalanceBalance 300 ml -150 ml Results Results 24hrs Laboratory Tests Test 04/30/18 12:01 04/30/18 17:30 04/30/18 22:05 05/01/18 07:54 Bedside Glucose 133 92 99 100 Medications Medication Current Medications Diagnostic Test (Pha) (Accu-Chek) 1 XX ; Start 04/27/18 at 02:00 Acetaminophen (Tylenol Tab) 650 mg Q6H PRN PO .PAIN 1-3 OR TEMP; Start 04/26/18 at 21:00 Apixaban (Eliquis) 2.5 mg BID PO Last administered on 05/01/18 09:25; Admin Dose 2.5 MG; Start 04/26/18 at 21:00 Fenofibrate (Tricor) 145 mg DAILY PO Last administered on 05/01/18 09:25; Admin Dose 145 MG; Start 04/27/18 at 09:00 Ferrous Sulfate (Ferrous Sulfate (Ec)) 325 mg DAILY PO Last administered on 05/01/18at 09:25; Admin Dose 325 MG; Start 04/27/18 at 09:00 Guaifenesin/ Codeine Phosphate (Robitussin Ac Liquid Cup) 5 ml Q4H PRN PO cough; Start 04/26/18 at 21:00 Acetaminophen/ Hydrocodone Bitart ([place] (5/325)) 1 tab Q6H PRN PO .PAIN 4-6 Last administered on 05/01/18at 09:25; Admin Dose 1 TAB; Start 04/26/18 at 21:00 Insulin Aspart (Novolog Insulin Pen) (Adult SC Insulin - Mild Algorithm)... AC MEALS AND BEDTIME SC ; Start 04/26/18 at 21:00 Latanoprost (Xalatan) 1 drop QHS BOTH EYES Last administered on 04/30/18at 22:00; Admin Dose 1 DROP; Start 04/26/18 at 21:00 Lidocaine (Lidoderm) 1 patch DAILY TD Last administered on 05/01/18 09:26; Admin Dose 1 PATCH; Start 04/27/18 at 09:00 Menthol/Methyl Salicylate (Jose Maxwell) 1 applic TID PRN TOP aching Last administered on 05/01/18 09:26; Admin Dose 1 APPLIC; Start 04/26/18 at 21:00 Metoprolol Tartrate (Lopressor) 25 mg BID PO Last administered on 05/01/18 09:24; Admin Dose 25 MG; Start 04/26/18 at 21:00 Ondansetron HCl (Zofran Inj) 4 mg Q6H PRN IV NAUSEA/VOMITING; Start 04/26/18 at 21:00 Miscellaneous Information 1 ea NOTE XX ; Start 04/26/18 at 21:00 Glucose (Glutose) 15 gm Q15M PRN PO DECREASED GLUCOSE; Start 04/26/18 at 21:00 Glucose (Glutose) 22.5 gm Q15M PRN PO DECREASED GLUCOSE; Start 04/26/18 at 21:00 Dextrose (D50w Syringe) 25 ml Q15M PRN IV DECREASED GLUCOSE; Start 04/26/18 at 21:00 Dextrose (D50w Syringe) 50 ml Q15M PRN IV DECREASED GLUCOSE; Start 04/26/18 at 21:00 Glucagon (Glucagen) 1 mg Q15M PRN IM DECREASED GLUCOSE; Start 04/26/18 at 21:00 Glucose (Glutose) 15 gm Q15M PRN BUCCAL DECREASED GLUCOSE; Start 04/26/18 at 21:00 Metformin HCl (Glucophage) 500 mg WITH BREAKFAST PO Last administered on 05/01/18at 07:56; Admin Dose 500 MG; Start 04/27/18 at 07:35 Multivitamins Therapeutic (Theragran) 1 tab DAILY PO Last administered on 05/01/18 09:25; Admin Dose 1 TAB; Start 04/27/18 at 11:30 Docusate Sodium (Colace Liquid Cup) 100 mg BID PO Last administered on 05/01/18 09:25; Admin Dose 100 MG; Start 04/30/18 at 21:00 Lactulose (Enulose) 20 gm DAILY PRN PO CONSTIPATION Last administered on 05/01/18at 09:26; Admin Dose 20 GM; Start 05/01/18 at 09:00 RUBY TREVINO NP May 01, 2018 10:41
--- NOTE | 2018-05-01 12:26 | PN ---
Date/Time of Note Date/Time of Note DATE: 05/01/18 TIME: 12:25 Subjective No new complaints Objective Vital Signs Date Temp Pulse Resp B/P (MAP) Pulse Ox O2 O2 Flow FiO2 Time Delivery Rate 05/01/18 98.4 66 18 183/71 93 Room Air 07:00 (108) Intake and Output 04/30/18 04/30/18 05/01/18 1515:00 23:00 07:00 IntakeIntake Total 500 ml 200 ml OutputOutput Total 200 ml 350 ml BalanceBalance 300 ml -150 ml Exam pulm-cta abd-soft sba ambulation Results/Medications Result Diagram: 04/27/18 0620 04/28/18 0642 Results 24 hrs Laboratory Tests Test 04/30/18 17:30 04/30/18 22:05 05/01/18 07:54 05/01/18 11:53 Bedside Glucose 92 99 100 163 Medications Current Medications Diagnostic Test (Pha) (Accu-Chek) 1 ea 02 XX ; Start 04/27/18 at 02:00 Acetaminophen (Tylenol Tab) 650 mg Q6H PRN PO .PAIN 1-3 OR TEMP; Start 04/26/18 at 21:00 Apixaban (Eliquis) 2.5 mg BID PO Last administered on 05/01/18at 09:25; Admin Dose 2.5 MG; Start 04/26/18 at 21:00 Fenofibrate (Tricor) 145 mg DAILY PO Last administered on 05/01/18at 09:25; Admin Dose 145 MG; Start 04/27/18 at 09:00 Ferrous Sulfate (Ferrous Sulfate (Ec)) 325 mg DAILY PO Last administered on 05/01/18at 09:25; Admin Dose 325 MG; Start 04/27/18 at 09:00 Guaifenesin/ Codeine Phosphate (Robitussin Ac Liquid Cup) 5 ml Q4H PRN PO cough; Start 04/26/18 at 21:00 Acetaminophen/ Hydrocodone Bitart ([place] (5/325)) 1 tab Q6H PRN PO .PAIN 4-6 Last administered on 05/01/18at 09:25; Admin Dose 1 TAB; Start 04/26/18 at 21:00 Insulin Aspart (Novolog Insulin Pen) (Adult SC Insulin - Mild Algorithm)... AC MEALS AND BEDTIME SC Last administered on 05/01/18at 12:05; Admin Dose 1 UNIT; Start 04/26/18 at 21:00 Latanoprost (Xalatan) 1 drop QHS BOTH EYES Last administered on 04/30/18at 22:00; Admin Dose 1 DROP; Start 04/26/18 at 21:00 Lidocaine (Lidoderm) 1 patch DAILY TD Last administered on 05/01/18 09:26; Admin Dose 1 PATCH; Start 04/27/18 at 09:00 Menthol/Methyl Salicylate (Jose Maxwell) 1 applic TID PRN TOP aching Last administered on 05/01/18 09:26; Admin Dose 1 APPLIC; Start 04/26/18 at 21:00 Ondansetron HCl (Zofran Inj) 4 mg Q6H PRN IV NAUSEA/VOMITING; Start 04/26/18 at 21:00 Miscellaneous Information 1 ea NOTE XX ; Start 04/26/18 at 21:00 Glucose (Glutose) 15 gm Q15M PRN PO DECREASED GLUCOSE; Start 04/26/18 at 21:00 Glucose (Glutose) 22.5 gm Q15M PRN PO DECREASED GLUCOSE; Start 04/26/18 at 2 1:00 Dextrose (D50w Syringe) 25 ml Q15M PRN IV DECREASED GLUCOSE; Start 04/26/18 at 21:00 Dextrose (D50w Syringe) 50 ml Q15M PRN IV DECREASED GLUCOSE; Start 04/26/18 at 21:00 Glucagon (Glucagen) 1 mg Q15M PRN IM DECREASED GLUCOSE; Start 04/26/18 at 21:00 Glucose (Glutose) 15 gm Q15M PRN BUCCAL DECREASED GLUCOSE; Start 04/26/18 at 21:00 Metformin HCl (Glucophage) 500 mg WITH BREAKFAST PO Last administered on 05/01/18at 07:56; Admin Dose 500 MG; Start 04/27/18 at 07:35 Multivitamins Therapeutic (Theragran) 1 tab DAILY PO Last administered on 05/01/18 09:25; Admin Dose 1 TAB; Start 04/27/18 at 11:30 Docusate Sodium (Colace Liquid Cup) 100 mg BID PO Last administered on 05/01/18 09:25; Admin Dose 100 MG; Start 04/30/18 at 21:00 Lactulose (Enulose) 20 gm DAILY PRN PO CONSTIPATION Last administered on 05/01/18at 09:26; Admin Dose 20 GM; Start 05/01/18 at 09:00 Metoprolol Tartrate (Lopressor) 50 mg BID PO ; Start 05/01/18 at 21:00 Assessment/Plan Additional Assessment/Plan Rehab- Tox Encephalopathy, Debility secondary to gastrointestinal bleed with diverticulitis and hemorrhoids. Continue rehab treatment plan, patient progressing well Dysphagia- toleratingdiet Atrial fibrillation. Hypertension. Chronic kidney disease. Hyperlipidemia. Diabetes mellitus. Chronic obstructive pulmonary disease. Urinary retention- improved MARKUS BENSON MD May 01, 2018 12:26
[2018-05-01 14:00] VITALS: BP 122/71; PULSE 81; RESP 19
[2018-05-01 19:09] VITALS: BP 131/60; PULSE 68; RESP 18
[2018-05-01] MEDS: METOPROLOL 50 MG TAB PO SCH (21:00)
[2018-05-01] MEDS: LATANOPROST 0.005% 2.5 ML OPH BOTH EYES SCH (21:20)
[2018-05-02 02:00] VITALS: BP 135/68; PULSE 73; RESP 18
[2018-05-02] MEDS: ACCU-CHEK XX SCH (02:00)
[2018-05-02 07:00] VITALS: BP 139/62; PULSE 59; RESP 16
[2018-05-02] MEDS: INSULIN ASPART [NOVOLOG] 3 ML PEN SC SCH ×4 (07:05→20:34)
[2018-05-02] MEDS: metFORMIN 500 MG TAB PO SCH (07:54)
--- NOTE | 2018-05-02 08:46 | PN ---
Date/Time of Note Date/Time of Note DATE: 05/02/18 TIME: 08:44 Subjective AWAKE ALEERRT, NO C/O Objective Vital Signs Date Temp Pulse Resp B/P (MAP) Pulse Ox O2 O2 Flow FiO2 Time Delivery Rate 05/02/18 97.6 59 16 139/62 95 Room Air 07:00 (87) Intake and Output 05/01/18 05/01/18 05/02/18 1515:00 23:00 07:00 IntakeIntake Total 150 ml 200 ml OutputOutput Total 350 ml BalanceBalance 150 ml -150 ml Exam LUNGS CTA COR RRR GOOD MOTOR CLOF XT AND GAIT CGA Results/Medications Result Diagram: 04/28/18 0642 Results 24 hrs Laboratory Tests Test 05/01/18 11:53 05/01/18 17:28 05/01/18 21:16 05/02/18 07:42 Bedside Glucose 163 107 124 107 Medications Current Medications Diagnostic Test (Pha) (Accu-Chek) 1 ea 02 XX ; Start 04/27/18 at 02:00 Acetaminophen (Tylenol Tab) 650 mg Q6H PRN PO .PAIN 1-3 OR TEMP Last administered on 05/01/18 21:18; Admin Dose 650 MG; Start 04/26/18 at 21:00 Apixaban (Eliquis) 2.5 mg BID PO Last administered on 05/01/18 21:15; Admin Dose 2.5 MG; Start 04/26/18 at 21:00 Fenofibrate (Tricor) 145 mg DAILY PO Last administered on 05/01/18 09:25; Admin Dose 145 MG; Start 04/27/18 at 09:00 Ferrous Sulfate (Ferrous Sulfate (Ec)) 325 mg DAILY PO Last administered on 05/01/18 09:25; Admin Dose 325 MG; Start 04/27/18 at 09:00 Guaifenesin/ Codeine Phosphate (Robitussin Ac Liquid Cup) 5 ml Q4H PRN PO cough; Start 04/26/18 at 21:00 Acetaminophen/ Hydrocodone Bitart ([place] (5/325)) 1 tab Q6H PRN PO .PAIN 4-6 Last administered on 05/01/18 09:25; Admin Dose 1 TAB; Start 04/26/18 at 21:00 Insulin Aspart (Novolog Insulin Pen) (Adult SC Insulin - Mild Algorithm)... AC MEALS AND BEDTIME SC Last administered on 05/01/18 12:05; Admin Dose 1 UNIT; Start 04/26/18 at 21:00 Latanoprost (Xalatan) 1 drop QHS BOTH EYES Last administered on 05/01/18 21:20; Admin Dose 1 DROP; Start 04/26/18 at 21:00 Lidocaine (Lidoderm) 1 patch DAILY TD Last administered on 05/01/18 09:26; Admin Dose 1 PATCH; Start 04/27/18 at 09:00 Menthol/Methyl Salicylate (Jose Maxwell) 1 applic TID PRN TOP aching Last administered on 05/01/18 09:26; Admin Dose 1 APPLIC; Start 04/26/18 at 21:00 Ondansetron HCl (Zofran Inj) 4 mg Q6H PRN IV NAUSEA/VOMITING; Start 04/26/18 at 21:00 Miscellaneous Information 1 ea NOTE XX ; Start 04/26/18 at 21:00 Glucose (Glutose) 15 gm Q15M PRN PO DECREASED GLUCOSE; Start 04/26/18 at 21:00 Glucose (Glutose) 22.5 gm Q15M PRN PO DECREASED GLUCOSE; Start 04/26/18 at 21:00 Dextrose (D50w Syringe) 25 ml Q15M PRN IV DECREASED GLUCOSE; Start 04/26/18 at 21:00 Dextrose (D50w Syringe) 50 ml Q15M PRN IV DECREASED GLUCOSE; Start 04/26/18 at 21:00 Glucagon (Glucagen) 1 mg Q15M PRN IM DECREASED GLUCOSE; Start 04/26/18 at 21:00 Glucose (Glutose) 15 gm Q15M PRN BUCCAL DECREASED GLUCOSE; Start 04/26/18 at 21:00 Metformin HCl (Glucophage) 500 mg WITH BREAKFAST PO Last administered on 05/02/18 07:54; Admin Dose 500 MG; Start 04/27/18 at 07:35 Multivitamins Therapeutic (Theragran) 1 tab DAILY PO Last administered on 05/01/18 09:25; Admin Dose 1 TAB; Start 04/27/18 at 11:30 Docusate Sodium (Colace Liquid Cup) 100 mg BID PO Last administered on 05/01/18 09:25; Admin Dose 100 MG; Start 04/30/18 at 21:00 Lactulose (Enulose) 20 gm DAILY PRN PO CONSTIPATION Last administered on 05/01/18at 09:26; Admin Dose 20 GM; Start 05/01/18 at 09:00 Metoprolol Tartrate (Lopressor) 50 mg BID PO ; Start 05/01/18 at 21:00 Assessment/Plan Additional Assessment/Plan Rehab- Tox Encephalopathy, Debility secondary to gastrointestinal bleed with diverticulitis and hemorrhoids. Continue rehab treatment plan, patient progressing well. BARRIERS COG/ SEQUENCING AND SAFETY CONT REHAB Dysphagia- toleratingdiet Atrial fibrillation. Hypertension. Chronic kidney disease. Hyperlipidemia. Diabetes mellitus. Chronic obstructive pulmonary disease. Urinary retention- improved CRISTOFER BENSON MD May 02, 2018 08:46
[2018-05-02] MEDS: DOCUSATE SODIUM 10 MG/ML (10ML CUP) PO SCH ×2 (08:49→20:39)
[2018-05-02] MEDS: FENOFIBRATE 145 MG TAB PO SCH (08:49)
[2018-05-02] MEDS: METOPROLOL 50 MG TAB PO SCH ×2 (08:49→20:34)
[2018-05-02] MEDS: MULTIVITAMINS THERAPEUTIC TAB PO SCH (08:49)
[2018-05-02] MEDS: FERROUS SULFATE (EC) 325 MG TAB PO SCH (08:50)
[2018-05-02] MEDS: APIXABAN 5 MG TABLET PO SCH ×2 (08:50→20:33)
[2018-05-02] MEDS: LIDOCAINE 5% PATCH TD SCH (08:51)
--- NOTE | 2018-05-02 12:04 | PN ---
Date/Time of Note Date/Time of Note DATE: 05/02/18 TIME: 12:04 Objective Vitals Vital Signs Date Temp Pulse Resp B/P (MAP) Pulse Ox O2 O2 Flow FiO2 Time Delivery Rate 05/02/18 97.6 59 16 139/62 95 Room Air 07:00 (87) Intake and Output 05/01/18 05/01/18 05/02/18 1515:00 23:00 07:00 IntakeIntake Total 150 ml 200 ml OutputOutput Total 350 ml BalanceBalance 150 ml -150 ml Results Result Diagram: 04/28/18 0642 Medications Medications Current Medications Diagnostic Test (Pha) (Accu-Chek) 1 ea 02 XX ; Start 04/27/18 at 02:00 Acetaminophen (Tylenol Tab) 650 mg Q6H PRN PO .PAIN 1-3 OR TEMP Last administered on 05/01/18 21:18; Admin Dose 650 MG; Start 04/26/18 at 21:00 Apixaban (Eliquis) 2.5 mg BID PO Last administered on 05/02/18 08:50; Admin Dose 2.5 MG; Start 04/26/18 at 21:00 Fenofibrate (Tricor) 145 mg DAILY PO Last administered on 05/02/18 08:49; Admin Dose 145 MG; Start 04/27/18 at 09:00 Ferrous Sulfate (Ferrous Sulfate (Ec)) 325 mg DAILY PO Last administered on 05/02/18 08:50; Admin Dose 325 MG; Start 04/27/18 at 09:00 Guaifenesin/ Codeine Phosphate (Robitussin Ac Liquid Cup) 5 ml Q4H PRN PO cough; Start 04/26/18 at 21:00 Acetaminophen/ Hydrocodone Bitart ([place] (5/325)) 1 tab Q6H PRN PO .PAIN 4-6 Last administered on 05/01/18 09:25; Admin Dose 1 TAB; Start 04/26/18 at 21:00 Insulin Aspart (Novolog Insulin Pen) (Adult SC Insulin - Mild Algorithm)... AC MEALS AND BEDTIME SC Last administered on 05/01/18 12:05; Admin Dose 1 UNIT; Start 04/26/18 at 21:00 Latanoprost (Xalatan) 1 drop QHS BOTH EYES Last administered on 05/01/18 21:20; Admin Dose 1 DROP; Start 04/26/18 at 21:00 Lidocaine (Lidoderm) 1 patch DAILY TD Last administered on 05/02/18 08:51; Admin Dose 1 PATCH; Start 04/27/18 at 09:00 Menthol/Methyl Salicylate (Jose Maxwell) 1 applic TID PRN TOP aching Last administered on 05/01/18 09:26; Admin Dose 1 APPLIC; Start 04/26/18 at 21:00 Ondansetron HCl (Zofran Inj) 4 mg Q6H PRN IV NAUSEA/VOMITING; Start 04/26/18 at 21:00 Miscellaneous Information 1 ea NOTE XX ; Start 04/26/18 at 21:00 Glucose (Glutose) 15 gm Q15M PRN PO DECREASED GLUCOSE; Start 04/26/18 at 21:00 Glucose (Glutose) 22.5 gm Q15M PRN PO DECREASED GLUCOSE; Start 04/26/18 at 21:00 Dextrose (D50w Syringe) 25 ml Q15M PRN IV DECREASED GLUCOSE; Start 04/26/18 at 21:00 Dextrose (D50w Syringe) 50 ml Q15M PRN IV DECREASED GLUCOSE; Start 04/26/18 at 21:00 Glucagon (Glucagen) 1 mg Q15M PRN IM DECREASED GLUCOSE; Start 04/26/18 at 21:00 Glucose (Glutose) 15 gm Q15M PRN BUCCAL DECREASED GLUCOSE; Start 04/26/18 at 21:00 Metformin HCl (Glucophage) 500 mg WITH BREAKFAST PO Last administered on 05/02/18 07:54; Admin Dose 500 MG; Start 04/27/18 at 07:35 Multivitamins Therapeutic (Theragran) 1 tab DAILY PO Last administered on 05/02/18 08:49; Admin Dose 1 TAB; Start 04/27/18 at 11:30 Docusate Sodium (Colace Liquid Cup) 100 mg BID PO Last administered on 05/02/18 08:49; Admin Dose 100 MG; Start 04/30/18 at 21:00 Lactulose (Enulose) 20 gm DAILY PRN PO CONSTIPATION Last administered on 05/01/18 09:26; Admin Dose 20 GM; Start 05/01/18 at 09:00 Metoprolol Tartrate (Lopressor) 50 mg BID PO ; Start 05/01/18 at 21:00 VTE Prophylaxis Risk score (from Nsg)>0 risk: 5 SCD applied (from Ns): Yes Lines/Catheters IV Catheter Type: Sun in Place: No Assessment/Plan Hospital Course Subjective Patient complaining of chronic neuropathic pain on her right arm secondary to her recent shingles episode Objective Physical exam General: Patient is laying in bed and answers questions appropriately Mentation: Patient is alert and oriented 4, Head: Normocephalic atraumatic Eyes: EOMI, pupils reactive to light Neck: Supple, nontender, midline Respiratory: Clear to auscultation bilaterally Cardiovascular: regular rate, no obvious murmurs Gastrointestinal: non-tender to palpation, bowel sounds heard. Neurological: Moves all extremities spontaneously Skin: No new skin lesions ASSESSMENT/PLAN: An 87-year-old female with history of A. fib was on anticoagulation, hypertension, iron deficiency anemia, prediabetes, dyslipidemia, rectal bleed, status post colonoscopy, was transferred to rehab for decline in functional status... 1. Progressive debility -Continue rehab 2. Status post rectal bleed -s/p colonoscopy 04/21/18, showed int hemorrhoids, colon polyp removed,path showed tubular adenoma and diverticulosis -no further bleeding -stable H&H 3. History of atrial fibrillation, was on anticoagulation prior to admission, which likely contributed to #2. - patient has been cleared for Eliquis per GI and has been getting it. 4. Hypertension -needs more control, will increase BB to 50 bid. 5. Iron deficient anemia -cont. oral iron. 6. Dyslipidemia -On TriCor 7. Prediabetes with A1c 6.1. -Stable sugar -carb- controlled diet. 8. Mild RAMA, likely dehydration -stable w/not much fluctuation. Recent Shingles -no more lesions, however still having neuropathic pain in the arm, offered gabapentin, patient will speak to daughter and think about it. DVT prophylaxis: Eliquis Disposition -Rehab PRAVEEN ZHANG May 02, 2018 12:04
[2018-05-02] MEDS: GABAPENTIN 100 MG CAP PO SCH ×2 (12:59→20:33)
[2018-05-02 14:00] VITALS: BP 143/62; PULSE 68; RESP 16
[2018-05-02 19:58] VITALS: BP 145/64; PULSE 65; RESP 18
[2018-05-02] MEDS: LATANOPROST 0.005% 2.5 ML OPH BOTH EYES SCH (20:38)
[2018-05-03 02:00] VITALS: BP 132/62; PULSE 67; RESP 18
[2018-05-03] MEDS: ACCU-CHEK XX SCH (02:00)
[2018-05-03] MEDS: INSULIN ASPART [NOVOLOG] 3 ML PEN SC SCH ×4 (07:05→20:39)
[2018-05-03 07:30] VITALS: BP 124/59; PULSE 66; RESP 18
[2018-05-03] MEDS: FENOFIBRATE 145 MG TAB PO SCH (08:11)
[2018-05-03] MEDS: metFORMIN 500 MG TAB PO SCH (08:11)
[2018-05-03] MEDS: DOCUSATE SODIUM 10 MG/ML (10ML CUP) PO SCH ×2 (08:11→20:40)
[2018-05-03] MEDS: GABAPENTIN 100 MG CAP PO SCH (08:11)
[2018-05-03] MEDS: MULTIVITAMINS THERAPEUTIC TAB PO SCH (08:11)
[2018-05-03] MEDS: FERROUS SULFATE (EC) 325 MG TAB PO SCH (08:11)
[2018-05-03] MEDS: LIDOCAINE 5% PATCH TD SCH (08:11)
[2018-05-03] MEDS: APIXABAN 5 MG TABLET PO SCH ×2 (08:11→20:40)
[2018-05-03] MEDS: METOPROLOL 50 MG TAB PO SCH ×2 (08:13→20:41)
[2018-05-03] MEDS ORDERED: MAGNESIUM OXIDE 400 MG TAB PO ONE (09:30)
[2018-05-03] MEDS: SOD CHLORIDE 0.9% 1,000 ML IV SCH (09:30)
--- NOTE | 2018-05-03 13:56 | PN ---
Date/Time of Note Date/Time of Note DATE: 05/03/18 TIME: 13:55 Objective Vitals Vital Signs Date Temp Pulse Resp B/P (MAP) Pulse Ox O2 O2 Flow FiO2 Time Delivery Rate 05/03/18 98.3 66 18 124/59 96 Room Air 07:30 (80) Intake and Output 05/02/18 05/02/18 05/03/18 1515:00 23:00 07:00 IntakeIntake Total 550 ml 700 ml 850 ml OutputOutput Total 550 ml BalanceBalance 550 ml 150 ml 850 ml Results Result Diagram: 05/03/18 0608 05/03/18 0608 Medications Medications Current Medications Diagnostic Test (Pha) (Accu-Chek) 1 ea 02 XX ; Start 04/27/18 at 02:00 Acetaminophen (Tylenol Tab) 650 mg Q6H PRN PO .PAIN 1-3 OR TEMP Last administered on 05/01/18 21:18; Admin Dose 650 MG; Start 04/26/18 at 21:00 Apixaban (Eliquis) 2.5 mg BID PO Last administered on 05/03/18 08:11; Admin Dose 2.5 MG; Start 04/26/18 at 21:00 Fenofibrate (Tricor) 145 mg DAILY PO Last administered on 05/03/18 08:11; Admin Dose 145 MG; Start 04/27/18 at 09:00 Ferrous Sulfate (Ferrous Sulfate (Ec)) 325 mg DAILY PO Last administered on 05/03/18 08:11; Admin Dose 325 MG; Start 04/27/18 at 09:00 Guaifenesin/ Codeine Phosphate (Robitussin Ac Liquid Cup) 5 ml Q4H PRN PO cough; Start 04/26/18 at 21:00 Acetaminophen/ Hydrocodone Bitart ([place] (5/325)) 1 tab Q6H PRN PO .PAIN 4-6 Last administered on 05/01/18 09:25; Admin Dose 1 TAB; Start 04/26/18 at 21:00 Insulin Aspart (Novolog Insulin Pen) (Adult SC Insulin - Mild Algorithm)... AC MEALS AND BEDTIME SC Last administered on 05/01/18at 12:05; Admin Dose 1 UNIT; Start 04/26/18 at 21:00 Latanoprost (Xalatan) 1 drop QHS BOTH EYES Last administered on 05/02/18 20:38; Admin Dose 1 DROP; Start 04/26/18 at 21:00 Lidocaine (Lidoderm) 1 patch DAILY TD Last administered on 05/03/18 08:11; Admin Dose 1 PATCH; Start 04/27/18 at 09:00 Menthol/Methyl Salicylate (Jose Maxwell) 1 applic TID PRN TOP aching Last administered on 05/01/18 09:26; Admin Dose 1 APPLIC; Start 04/26/18 at 21:00 Ondansetron HCl (Zofran Inj) 4 mg Q6H PRN IV NAUSEA/VOMITING; Start 04/26/18 at 21:00 Miscellaneous Information 1 ea NOTE XX ; Start 04/26/18 at 21:00 Glucose (Glutose) 15 gm Q15M PRN PO DECREASED GLUCOSE; Start 04/26/18 at 21:00 Glucose (Glutose) 22.5 gm Q15M PRN PO DECREASED GLUCOSE; Start 04/26/18 at 21:00 Dextrose (D50w Syringe) 25 ml Q15M PRN IV DECREASED GLUCOSE; Start 04/26/18 at 21:00 Dextrose (D50w Syringe) 50 ml Q15M PRN IV DECREASED GLUCOSE; Start 04/26/18 at 21:00 Glucagon (Glucagen) 1 mg Q15M PRN IM DECREASED GLUCOSE; Start 04/26/18 at 21:00 Glucose (Glutose) 15 gm Q15M PRN BUCCAL DECREASED GLUCOSE; Start 04/26/18 at 21:00 Metformin HCl (Glucophage) 500 mg WITH BREAKFAST PO Last administered on 05/03/18 08:11; Admin Dose 500 MG; Start 04/27/18 at 07:35; Status Hold Multivitamins Therapeutic (Theragran) 1 tab DAILY PO Last administered on 05/03/18 08:11; Admin Dose 1 TAB; Start 04/27/18 at 11:30 Docusate Sodium (Colace Liquid Cup) 100 mg BID PO Last administered on 05/03/18 08:11; Admin Dose 100 MG; Start 04/30/18 at 21:00 Lactulose (Enulose) 20 gm DAILY PRN PO CONSTIPATION Last administered on 05/01/18 09:26; Admin Dose 20 GM; Start 05/01/18 at 09:00 Metoprolol Tartrate (Lopressor) 50 mg BID PO Last administered on 05/03/18at 08:13; Admin Dose 50 MG; Start 05/01/18 at 21:00 Gabapentin (Neurontin) 100 mg TID PO Last administered on 05/03/18at 08:11; Admin Dose 100 MG; Start 05/02/18 at 13:00; Status Hold Sodium Chloride 1,000 ml @ 40 mls/hr Q24H IV ; Start 05/03/18 at 09:30; Stop 05/04/18 at 10:29 VTE Prophylaxis Risk score (from Ns)>0 risk: 4 [place] [facility] [place] Lines/Catheters IV Catheter Type: Sun in Place: No Assessment/Plan Hospital Course Subjective No acute issues overnight Objective Physical exam General: Patient is laying in bed and answers questions appropriately Mentation: Patient is alert and oriented 4, Head: Normocephalic atraumatic Eyes: EOMI, pupils reactive to light Neck: Supple, nontender, midline Respiratory: Clear to auscultation bilaterally Cardiovascular: regular rate, no obvious murmurs Gastrointestinal: non-tender to palpation, bowel sounds heard. Neurological: Moves all extremities spontaneously Skin: No new skin lesions ASSESSMENT/PLAN: An 87-year-old female with history of A. fib was on anticoagulation, hypertension, iron deficiency anemia, prediabetes, dyslipidemia, rectal bleed, status post colonoscopy, was transferred to rehab for decline in functional status... 1. Progressive debility -Continue rehab 2. Status post rectal bleed -s/p colonoscopy 04/21/18, showed int hemorrhoids, colon polyp removed,path showed tubular adenoma and diverticulosis -no further bleeding -stable H&H 3. History of atrial fibrillation, was on anticoagulation prior to admission, which likely contributed to #2. - patient has been cleared for Eliquis per GI and has been getting it. 4. Hypertension -needs more control, will increase BB to 50 bid. 5. Iron deficient anemia -cont. oral iron. 6. Dyslipidemia -On TriCor 7. Prediabetes with A1c 6.1. -Stable sugar -carb- controlled diet. -Metformin on hold due to mild [place] I 8. Mild RAMA, likely dehydration -Mild elevation, offered IV fluid, however patient refused, encourage p.o. intake, repeat labs in a.m. Recent Shingles -no more lesions, however still having neuropathic pain in the arm, gabapentin was initiated, however renal labs were elevated today, gabapentin will be put on hold DVT prophylaxis: Eliquis Disposition -Repeat labs in the a.m. to ensure resolution of acute kidney injury, gabapentin and metformin on hold for now PRAVEEN ZHANG May 03, 2018 13:56
[2018-05-03 14:00] VITALS: BP 114/58; PULSE 65; RESP 20
[2018-05-03 19:29] VITALS: BP 135/62; PULSE 63; RESP 18
[2018-05-03] MEDS: LATANOPROST 0.005% 2.5 ML OPH BOTH EYES SCH (20:41)
[2018-05-04] MEDS: ACCU-CHEK XX SCH (02:00)
[2018-05-04 02:36] VITALS: BP 126/60; PULSE 59; RESP 18
[2018-05-04 07:00] VITALS: BP 128/58; PULSE 72; RESP 18
[2018-05-04] MEDS: INSULIN ASPART [NOVOLOG] 3 ML PEN SC SCH ×4 (07:05→20:49)
[2018-05-04] MEDS: METOPROLOL 50 MG TAB PO SCH ×2 (08:26→20:45)
[2018-05-04] MEDS: DOCUSATE SODIUM 10 MG/ML (10ML CUP) PO SCH ×2 (08:26→20:44)
[2018-05-04] MEDS: LIDOCAINE 5% PATCH TD SCH (08:26)
[2018-05-04] MEDS: FENOFIBRATE 145 MG TAB PO SCH (08:26)
[2018-05-04] MEDS: MULTIVITAMINS THERAPEUTIC TAB PO SCH (08:26)
[2018-05-04] MEDS: APIXABAN 5 MG TABLET PO SCH ×3 (08:27→20:44)
[2018-05-04] MEDS: FERROUS SULFATE (EC) 325 MG TAB PO SCH (08:27)
[2018-05-04] MEDS: SOD CHLORIDE 0.9% 1,000 ML IV SCH (08:27)
--- NOTE | 2018-05-04 09:30 | PN ---
Date/Time of Note Date/Time of Note DATE: 05/04/18 TIME: 09:29 Assessment/Plan VTE Prophylaxis Risk score (from Nsg)>0 risk: 4 SCD applied (from Ns): Yes Pharmacological prophylaxis: apixaban Lines/Catheters IV Catheter Type (from Nrs): Urinary Cath still in place: No Assessment/Plan Hospital Course SUBJECTIVE: No acute distress. Participate with physical therapy well. OBJECTIVE: Vital signs-see below PHYSICAL EXAM: Constitutional: Frail looking, elderly female, not in acute distress psych: nl mood/affect, no complaints Head: atraumatic, normocephalic Eyes: nl conjunctiva, nl sclera ENMT: mucosa pink and moist, nl external ears & nose Neck: non-tender, supple Respiratory: clear to auscultation, normal air movement Cardiovascular: nl pulses, regular rate and rhythm Gastrointestinal: non-tender, soft, bowel sounds active in all 4 quadrants. Musculoskeletal/extremities: nl extremities to inspection, motor strength equal bilaterally, no focal deficit. Normal pulses,no cyanosis, no edema. Neurological: Alert oriented 3,nl speech, nl strength Skin: nl turgor ASSESSMENT/PLAN: An 87-year-old female with history of A. fib was on anticoagulation, hypertension, iron deficiency anemia, prediabetes, dyslipidemia, rectal bleed, status post colonoscopy, was transferred to rehab for decline in functional status... 1. Progressive debility -Continue rehab 2. Status post rectal bleed -s/p colonoscopy 04/21/18, showed int hemorrhoids, colon polyp removed,path showed tubular adenoma and diverticulosis -no further bleeding -stable H&H 3. History of atrial fibrillation, was on anticoagulation prior to admission, which likely contributed to #2. - patient has been cleared for Eliquis per GI and has been getting it. 4. Hypertension -needs more control, will increase BB to 50 bid. 5. Iron deficient anemia -cont. oral iron. 6. Dyslipidemia -On TriCor 7. Prediabetes with A1c 6.1. -Stable sugar -carb- controlled diet. 8. Mild RAMA, likely dehydration -stable w/not much fluctuation. DVT prophylaxis: Eliquis Patient was seen in collaboration with Result Diagram: 05/04/18 0631 05/04/18 0631 Results 24hrs Laboratory Tests Test 05/03/18 11:52 05/03/18 17:27 05/03/18 20:35 05/04/18 06:31 Bedside Glucose 129 117 157 White Blood Count 6.7 # Red Blood Count 3.85 L Hemoglobin 10.0 L Hematocrit 32.8 L Mean Corpuscular Volume 85.2 Mean Corpuscular 26.0 L Hemoglobin Mean Corpuscular 30.5 L Hemoglobin Concent Red Cell Distribution 17.2 H Width Platelet Count 362 Mean Platelet Volume 11.8 H Immature Granulocytes % 0.500 H Neutrophils % 53.8 Lymphocytes % 30.3 Monocytes % 11.6 H Eosinophils % 2.7 Basophils % 1.1 Nucleated Red Blood 0.0 Cells % Immature Granulocytes # 0.030 Neutrophils # 3.6 Lymphocytes # 2.0 Monocytes # 0.8 Eosinophils # 0.2 Basophils # 0.1 Nucleated Red Blood 0.0 Cells # Sodium Level 139 Potassium Level 4.5 Chloride Level 103 Carbon Dioxide Level 29 Anion Gap 7 Blood Urea Nitrogen 42 H Creatinine 1.63 H Est Glomerular Filtrat Rate mL/min Glucose Level 102 Calcium Level 10.8 H Phosphorus Level 3.7 Magnesium Level 1.7 Test 05/04/18 07:56 Bedside Glucose 98 Exam/Review of Systems Exam Vitals Vital Signs Date Temp Pulse Resp B/P (MAP) Pulse Ox O2 O2 Flow FiO2 Time Delivery Rate 05/04/18 97.8 72 18 128/58 99 Room Air 07:00 (81) Intake and Output 05/03/18 05/03/18 05/04/18 1515:00 23:00 07:00 IntakeIntake Total 940 ml 200 ml OutputOutput Total 650 ml BalanceBalance 940 ml -450 ml Results Results 24hrs Laboratory Tests Test 05/03/18 11:52 05/03/18 17:27 05/03/18 20:35 05/04/18 06:31 Bedside Glucose 129 117 157 White Blood Count 6.7 # Red Blood Count 3.85 L Hemoglobin 10.0 L Hematocrit 32.8 L Mean Corpuscular Volume 85.2 Mean Corpuscular 26.0 L Hemoglobin Mean Corpuscular 30.5 L Hemoglobin Concent Red Cell Distribution 17.2 H Width Platelet Count 362 Mean Platelet Volume 11.8 H Immature Granulocytes % 0.500 H Neutrophils % 53.8 Lymphocytes % 30.3 Monocytes % 11.6 H Eosinophils % 2.7 Basophils % 1.1 Nucleated Red Blood 0.0 Cells % Immature Granulocytes # 0.030 Neutrophils # 3.6 Lymphocytes # 2.0 Monocytes # 0.8 Eosinophils # 0.2 Basophils # 0.1 Nucleated Red Blood 0.0 Cells # Sodium Level 139 Potassium Level 4.5 Chloride Level 103 Carbon Dioxide Level 29 Anion Gap 7 Blood Urea Nitrogen 42 H Creatinine 1.63 H Est Glomerular Filtrat Rate mL/min Glucose Level 102 Calcium Level 10.8 H Phosphorus Level 3.7 Magnesium Level 1.7 Test 05/04/18 07:56 Bedside Glucose 98 Medications Medication Current Medications Diagnostic Test (Pha) (Accu-Chek) 1 XX ; Start 04/27/18 at 02:00 Acetaminophen (Tylenol Tab) 650 mg Q6H PRN PO .PAIN 1-3 OR TEMP Last administered on 05/01/18 21:18; Admin Dose 650 MG; Start 04/26/18 at 21:00 Apixaban (Eliquis) 2.5 mg BID PO Last administered on 05/03/18 20:40; Admin Dose 2.5 MG; Start 04/26/18 at 21:00 Fenofibrate (Tricor) 145 mg DAILY PO Last administered on 05/04/18 08:26; Admin Dose 145 MG; Start 04/27/18 at 09:00 Ferrous Sulfate (Ferrous Sulfate (Ec)) 325 mg DAILY PO Last administered on 05/04/18 08:27; Admin Dose 325 MG; Start 04/27/18 at 09:00 Guaifenesin/ Codeine Phosphate (Robitussin Ac Liquid Cup) 5 ml Q4H PRN PO cough; Start 04/26/18 at 21:00 Acetaminophen/ Hydrocodone Bitart ([place] (5/325)) 1 tab Q6H PRN PO .PAIN 4-6 Last administered on 05/01/18 09:25; Admin Dose 1 TAB; Start 04/26/18 at 21:00 Insulin Aspart (Novolog Insulin Pen) (Adult SC Insulin - Mild Algorithm)... AC MEALS AND BEDTIME SC Last administered on 05/01/18 12:05; Admin Dose 1 UNIT; Start 04/26/18 at 21:00 Latanoprost (Xalatan) 1 drop QHS BOTH EYES Last administered on 05/03/18 20:41; Admin Dose 1 DROP; Start 04/26/18 at 21:00 Lidocaine (Lidoderm) 1 patch DAILY TD Last administered on 05/04/18 08:26; Admin Dose 1 PATCH; Start 04/27/18 at 09:00 Menthol/Methyl Salicylate (Jose Maxwell) 1 applic TID PRN TOP aching Last administered on 05/01/18 09:26; Admin Dose 1 APPLIC; Start 04/26/18 at 21:00 Ondansetron HCl (Zofran Inj) 4 mg Q6H PRN IV NAUSEA/VOMITING; Start 04/26/18 at 21:00 Miscellaneous Information 1 ea NOTE XX ; Start 04/26/18 at 21:00 Glucose (Glutose) 15 gm Q15M PRN PO DECREASED GLUCOSE; Start 04/26/18 at 21:00 Glucose (Glutose) 22.5 gm Q15M PRN PO DECREASED GLUCOSE; Start 04/26/18 at 21:00 Dextrose (D50w Syringe) 25 ml Q15M PRN IV DECREASED GLUCOSE; Start 04/26/18 at 21:00 Dextrose (D50w Syringe) 50 ml Q15M PRN IV DECREASED GLUCOSE; Start 04/26/18 at 21:00 Glucagon (Glucagen) 1 mg Q15M PRN IM DECREASED GLUCOSE; Start 04/26/18 at 21:00 Glucose (Glutose) 15 gm Q15M PRN BUCCAL DECREASED GLUCOSE; Start 04/26/18 at 21:00 Metformin HCl (Glucophage) 500 mg WITH BREAKFAST PO Last administered on 05/03/18 08:11; Admin Dose 500 MG; Start 04/27/18 at 07:35; Status Hold Multivitamins Therapeutic (Theragran) 1 tab DAILY PO Last administered on 05/04/18 08:26; Admin Dose 1 TAB; Start 04/27/18 at 11:30 Docusate Sodium (Colace Liquid Cup) 100 mg BID PO Last administered on 05/04/18 08:26; Admin Dose 100 MG; Start 04/30/18 at 21:00 Lactulose (Enulose) 20 gm DAILY PRN PO CONSTIPATION Last administered on 05/01/18 09:26; Admin Dose 20 GM; Start 05/01/18 at 09:00 Metoprolol Tartrate (Lopressor) 50 mg BID PO Last administered on 3/4/19at 08:26; Admin Dose 50 MG; Start 05/01/18 at 21:00 Gabapentin (Neurontin) 100 mg TID PO Last administered on 05/03/18at 08:11; Admin Dose 100 MG; Start 05/02/18 at 13:00; Status Hold Sodium Chloride 1,000 ml @ 40 mls/hr Q24H IV ; Start 05/03/18 at 09:30; Stop 05/04/18 at 10:29 RUBY TREVINO NP May 04, 2018 09:30
--- NOTE | 2018-05-04 13:27 | PN ---
Date/Time of Note Date/Time of Note DATE: 05/04/18 TIME: 13:25 Objective Vital Signs Date Temp Pulse Resp B/P (MAP) Pulse Ox O2 O2 Flow FiO2 Time Delivery Rate 05/04/18 97.8 72 18 128/58 99 Room Air 07:00 (81) Intake and Output 05/03/18 05/03/18 05/04/18 1515:00 23:00 07:00 IntakeIntake Total 940 ml 200 ml OutputOutput Total 650 ml BalanceBalance 940 ml -450 ml Exam INTERDISCIPLINARY TEAM CONFERENCE Physical Exam: Pulm-cta Abd-soft BOWEL- Cont BLADDER-Cont SKIN- improving OT- DRESSING-sba/min BATHING-sba/min TOILETING-sba/min PT- BED MOBILITY- sba TRANSFERS-cga AMBULATION-cga 150 feet SPEECH- COGNITION-supervised expression, mod assist problem solving A/P- Interdisciplinary team conference held today. Please see interdisciplinary sheet. Working toward d.c. on 05/08 with post discharge follow up of physical therapy, occupational therapy. Results/Medications Result Diagram: 05/04/1831 05/04/18 0631 Results 24 hrs Laboratory Tests Test 05/03/18 17:27 05/03/18 20:35 05/04/18 06:31 05/04/18 07:56 Bedside Glucose 117 157 98 White Blood Count 6.7 # Red Blood Count 3.85 L Hemoglobin 10.0 L Hematocrit 32.8 L Mean Corpuscular Volume 85.2 Mean Corpuscular 26.0 L Hemoglobin Mean Corpuscular 30.5 L Hemoglobin Concent Red Cell Distribution 17.2 H Width Platelet Count 362 Mean Platelet Volume 11.8 H Immature Granulocytes % 0.500 H Neutrophils % 53.8 Lymphocytes % 30.3 Monocytes % 11.6 H Eosinophils % 2.7 Basophils % 1.1 Nucleated Red Blood 0.0 Cells % Immature Granulocytes # 0.030 Neutrophils # 3.6 Lymphocytes # 2.0 Monocytes # 0.8 Eosinophils # 0.2 Basophils # 0.1 Nucleated Red Blood 0.0 Cells # Sodium Level 139 Potassium Level 4.5 Chloride Level 103 Carbon Dioxide Level 29 Anion Gap 7 Blood Urea Nitrogen 42 H Creatinine 1.63 H Est Glomerular Filtrat Rate mL/min Glucose Level 102 Calcium Level 10.8 H Phosphorus Level 3.7 Magnesium Level 1.7 Test 05/04/18 11:47 Bedside Glucose 103 Medications Current Medications Diagnostic Test (Pha) (Accu-Chek) 1 ea 02 XX ; Start 04/27/18 at 02:00 Acetaminophen (Tylenol Tab) 650 mg Q6H PRN PO .PAIN 1-3 OR TEMP Last administered on 05/01/18 21:18; Admin Dose 650 MG; Start 04/26/18 at 21:00 Apixaban (Eliquis) 2.5 mg BID PO Last administered on 05/04/18 11:50; Admin Dose 2.5 MG; Start 04/26/18 at 21:00 Fenofibrate (Tricor) 145 mg DAILY PO Last administered on 05/04/18 08:26; Admin Dose 145 MG; Start 04/27/18 at 09:00 Ferrous Sulfate (Ferrous Sulfate (Ec)) 325 mg DAILY PO Last administered on 05/04/18 08:27; Admin Dose 325 MG; Start 04/27/18 at 09:00 Guaifenesin/ Codeine Phosphate (Robitussin Ac Liquid Cup) 5 ml Q4H PRN PO cough; Start 04/26/18 at 21:00 Acetaminophen/ Hydrocodone Bitart ([place] (5/325)) 1 tab Q6H PRN PO .PAIN 4-6 Last administered on 05/01/18 09:25; Admin Dose 1 TAB; Start 04/26/18 at 21:00 Insulin Aspart (Novolog Insulin Pen) (Adult SC Insulin - Mild Algorithm)... AC MEALS AND BEDTIME SC Last administered on 05/01/18 12:05; Admin Dose 1 UNIT; Start 04/26/18 at 21:00 Latanoprost (Xalatan) 1 drop QHS BOTH EYES Last administered on 05/03/18 20:41; Admin Dose 1 DROP; Start 04/26/18 at 21:00 Lidocaine (Lidoderm) 1 patch DAILY TD Last administered on 05/04/18 08:26; Admin Dose 1 PATCH; Start 04/27/18 at 09:00 Menthol/Methyl Salicylate (Jose Maxwell) 1 applic TID PRN TOP aching Last administered on 05/01/18 09:26; Admin Dose 1 APPLIC; Start 04/26/18 at 21:00 Ondansetron HCl (Zofran Inj) 4 mg Q6H PRN IV NAUSEA/VOMITING; Start 04/26/18 at 21:00 Miscellaneous Information 1 ea NOTE XX ; Start 04/26/18 at 21:00 Glucose (Glutose) 15 gm Q15M PRN PO DECREASED GLUCOSE; Start 04/26/18 at 21:00 Glucose (Glutose) 22.5 gm Q15M PRN PO DECREASED GLUCOSE; Start 04/26/18 at 21:00 Dextrose (D50w Syringe) 25 ml Q15M PRN IV DECREASED GLUCOSE; Start 04/26/18 at 21:00 Dextrose (D50w Syringe) 50 ml Q15M PRN IV DECREASED GLUCOSE; Start 04/26/18 at 21:00 Glucagon (Glucagen) 1 mg Q15M PRN IM DECREASED GLUCOSE; Start 04/26/18 at 21:00 Glucose (Glutose) 15 gm Q15M PRN BUCCAL DECREASED GLUCOSE; Start 04/26/18 at 21:00 Metformin HCl (Glucophage) 500 mg WITH BREAKFAST PO Last administered on 05/03/18 08:11; Admin Dose 500 MG; Start 04/27/18 at 07:35; Status Hold Multivitamins Therapeutic (Theragran) 1 tab DAILY PO Last administered on 05/04/18 08:26; Admin Dose 1 TAB; Start 04/27/18 at 11:30 Docusate Sodium (Colace Liquid Cup) 100 mg BID PO Last administered on 05/04/18 08:26; Admin Dose 100 MG; Start 04/30/18 at 21:00 Lactulose (Enulose) 20 gm DAILY PRN PO CONSTIPATION Last administered on 05/01/18 09:26; Admin Dose 20 GM; Start 05/01/18 at 09:00 Metoprolol Tartrate (Lopressor) 50 mg BID PO Last administered on 05/04/18 08:26; Admin Dose 50 MG; Start 05/01/18 at 21:00 Gabapentin (Neurontin) 100 mg TID PO Last administered on 05/03/18 08:11; Admin Dose 100 MG; Start 05/02/18 at 13:00; Status Hold MARKUS BENSON MD May 04, 2018 13:27
[2018-05-04 14:00] VITALS: BP 112/53; PULSE 56; RESP 18
[2018-05-04 20:05] VITALS: BP 140/62; PULSE 65; RESP 18
[2018-05-04] MEDS: LATANOPROST 0.005% 2.5 ML OPH BOTH EYES SCH (20:48)
[2018-05-05 01:47] VITALS: BP 148/67; PULSE 55; RESP 18
[2018-05-05] MEDS: ACCU-CHEK XX SCH (02:17)
[2018-05-05 07:00] VITALS: BP 125/55; PULSE 59; RESP 18
[2018-05-05] MEDS: INSULIN ASPART [NOVOLOG] 3 ML PEN SC SCH ×4 (07:05→21:00)
[2018-05-05] MEDS: HYDROCODONE/APAP (5/325) TAB PO PRN (09:10)
[2018-05-05] MEDS: DOCUSATE SODIUM 10 MG/ML (10ML CUP) PO SCH ×2 (09:11→21:00)
[2018-05-05] MEDS: FENOFIBRATE 145 MG TAB PO SCH (09:11)
[2018-05-05] MEDS: APIXABAN 5 MG TABLET PO SCH ×2 (09:11→21:00)
[2018-05-05] MEDS: METOPROLOL 50 MG TAB PO SCH ×2 (09:12→21:01)
[2018-05-05] MEDS: FERROUS SULFATE (EC) 325 MG TAB PO SCH (09:25)
[2018-05-05] MEDS: MULTIVITAMINS THERAPEUTIC TAB PO SCH (09:25)
[2018-05-05] MEDS: LIDOCAINE 5% PATCH TD SCH (09:25)
--- NOTE | 2018-05-05 11:26 | PN ---
Date/Time of Note Date/Time of Note DATE: 05/05/18 TIME: 11:25 Objective Vital Signs Date Temp Pulse Resp B/P (MAP) Pulse Ox O2 O2 Flow FiO2 Time Delivery Rate 05/05/18 98.2 59 18 125/55 98 Room Air 07:00 (78) Intake and Output 05/04/18 05/04/18 05/05/18 1515:00 23:00 07:00 IntakeIntake Total 370 ml 1100 ml OutputOutput Total 200 ml 400 ml 900 ml BalanceBalance 170 ml 700 ml -900 ml Exam INTERDISCIPLINARY TEAM CONFERENCE Physical Exam: Pulm-cta Abd-soft BOWEL- Cont BLADDER-Cont SKIN- improving OT- DRESSING-sba/min BATHING-sba/min TOILETING-sba/min PT- BED MOBILITY- sba TRANSFERS-sba AMBULATION-cga 150 feet SPEECH- COGNITION-supervised expression, mod assist problem solving A/P- Interdisciplinary team re-conference held today. Please see interdisciplinary sheet. Working toward d.c. on 05/08 with post discharge follow up of physical therapy, occupational therapy. Results/Medications Result Diagram: 05/04/1831 05/04/1831 Results 24 hrs Laboratory Tests Test 05/04/18 11:47 05/04/18 17:46 05/04/18 20:41 05/05/18 02:11 Bedside Glucose 103 102 183 93 Test 05/05/18 08:08 Bedside Glucose 91 Medications Current Medications Diagnostic Test (Pha) (Accu-Chek) 1 ea 02 XX Last administered on 05/05/18at 02:17; Admin Dose 1 EA; Start 04/27/18 at 02:00 Acetaminophen (Tylenol Tab) 650 mg Q6H PRN PO .PAIN 1-3 OR TEMP Last administered on 05/01/18at 21:18; Admin Dose 650 MG; Start 04/26/18 at 21:00 Apixaban (Eliquis) 2.5 mg BID PO Last administered on 05/05/18at 09:11; Admin Dose 2.5 MG; Start 04/26/18 at 21:00 Fenofibrate (Tricor) 145 mg DAILY PO Last administered on 05/05/18at 09:11; Admin Dose 145 MG; Start 04/27/18 at 09:00 Ferrous Sulfate (Ferrous Sulfate (Ec)) 325 mg DAILY PO Last administered on 05/05/18 09:25; Admin Dose 325 MG; Start 04/27/18 at 09:00 Guaifenesin/ Codeine Phosphate (Robitussin Ac Liquid Cup) 5 ml Q4H PRN PO cough; Start 04/26/18 at 21:00 Acetaminophen/ Hydrocodone Bitart ([place] (5/325)) 1 tab Q6H PRN PO .PAIN 4-6 Last administered on 05/05/18 09:10; Admin Dose 1 TAB; Start 04/26/18 at 21:00 Insulin Aspart (Novolog Insulin Pen) (Adult SC Insulin - Mild Algorithm)... AC MEALS AND BEDTIME SC Last administered on 05/04/18 20:49; Admin Dose 1 UNIT; Start 04/26/18 at 21:00 Latanoprost (Xalatan) 1 drop QHS BOTH EYES Last administered on 05/04/18 20:48; Admin Dose 1 DROP; Start 04/26/18 at 21:00 Lidocaine (Lidoderm) 1 patch DAILY TD Last administered on 05/05/18 09:25; Admin Dose 1 PATCH; Start 04/27/18 at 09:00 Menthol/Methyl Salicylate (Jose Maxwell) 1 applic TID PRN TOP aching Last administered on 05/01/18 09:26; Admin Dose 1 APPLIC; Start 04/26/18 at 21:00 Ondansetron HCl (Zofran Inj) 4 mg Q6H PRN IV NAUSEA/VOMITING; Start 04/26/18 at 21:00 Miscellaneous Information 1 ea NOTE XX ; Start 04/26/18 at 21:00 Glucose (Glutose) 15 gm Q15M PRN PO DECREASED GLUCOSE; Start 04/26/18 at 21:00 Glucose (Glutose) 22.5 gm Q15M PRN PO DECREASED GLUCOSE; Start 04/26/18 at 21:00 Dextrose (D50w Syringe) 25 ml Q15M PRN IV DECREASED GLUCOSE; Start 04/26/18 at 21:00 Dextrose (D50w Syringe) 50 ml Q15M PRN IV DECREASED GLUCOSE; Start 04/26/18 at 21:00 Glucagon (Glucagen) 1 mg Q15M PRN IM DECREASED GLUCOSE; Start 04/26/18 at 21:00 Glucose (Glutose) 15 gm Q15M PRN BUCCAL DECREASED GLUCOSE; Start 04/26/18 at 21:00 Metformin HCl (Glucophage) 500 mg WITH BREAKFAST PO Last administered on 05/03/18 08:11; Admin Dose 500 MG; Start 04/27/18 at 07:35; Status Hold Multivitamins Therapeutic (Theragran) 1 tab DAILY PO Last administered on 05/05/18 09:25; Admin Dose 1 TAB; Start 04/27/18 at 11:30 Docusate Sodium (Colace Liquid Cup) 100 mg BID PO Last administered on 05/05/18 09:11; Admin Dose 100 MG; Start 04/30/18 at 21:00 Lactulose (Enulose) 20 gm DAILY PRN PO CONSTIPATION Last administered on 05/01/18 09:26; Admin Dose 20 GM; Start 05/01/18 at 09:00 Metoprolol Tartrate (Lopressor) 50 mg BID PO Last administered on 05/05/18 09:12; Admin Dose 50 MG; Start 05/01/18 at 21:00 Gabapentin (Neurontin) 100 mg TID PO Last administered on 05/03/18 08:11; Admin Dose 100 MG; Start 05/02/18 at 13:00; Status Hold MARKUS BENSON MD May 05, 2018 11:26
[2018-05-05 14:00] VITALS: BP 135/61; PULSE 55; RESP 18
--- NOTE | 2018-05-05 15:01 | PN ---
Date/Time of Note Date/Time of Note DATE: 05/05/18 TIME: 15:01 Assessment/Plan VTE Prophylaxis Risk score (from Ns)>0 risk: 4 SCD applied (from Ns): No SCD contraindicated: low risk/ambulating, patient refusal Pharmacological prophylaxis: apixaban Lines/Catheters IV [facility]from [facility] Urinary Cath still in place: No Assessment/Plan Hospital Course SUBJECTIVE: No acute distress. Participate with physical therapy well. OBJECTIVE: Vital signs-see below PHYSICAL EXAM: Constitutional: Frail looking, elderly female, not in acute distress psych: nl mood/affect, no complaints Head: atraumatic, normocephalic Eyes: nl conjunctiva, nl sclera ENMT: mucosa pink and moist, nl external ears & nose Neck: non-tender, supple Respiratory: clear to auscultation, normal air movement Cardiovascular: nl pulses, regular rate and rhythm Gastrointestinal: non-tender, soft, bowel sounds active in all 4 quadrants. Musculoskeletal/extremities: nl extremities to inspection, motor strength equal bilaterally, no focal deficit. Normal pulses,no cyanosis, no edema. Neurological: Alert oriented 3,nl speech, nl strength Skin: nl turgor ASSESSMENT/PLAN: An 87-year-old female with history of A. fib was on anticoagulation, hypertension, iron deficiency anemia, prediabetes, dys lipidemia, rectal bleed, status post colonoscopy, was transferred to rehab for decline in functional status... 1. Progressive debility -Continue rehab 2. Status post rectal bleed -s/p colonoscopy 04/21/18, showed int hemorrhoids, colon polyp removed,path showed tubular adenoma and diverticulosis -no further bleeding -stable H&H 3. History of atrial fibrillation, was on anticoagulation prior to admission, which likely contributed to #2. - patient has been cleared for Eliquis per GI and has been getting it. 4. Hypertension -needs more control, will increase BB to 50 bid. 5. Iron deficient anemia -cont. oral iron. 6. Dyslipidemia -On TriCor 7. Prediabetes with A1c 6.1. -Stable sugar -carb- controlled diet. 8. Mild RAMA, likely dehydration -stable w/not much fluctuation. DVT prophylaxis: Eliquis Patient was seen in collaboration with Result Diagram: 05/04/1863005/04/18630 Results 24hrs Laboratory Tests Test 05/04/18 17:46 05/04/18 20:41 05/05/18 02:11 05/05/18 08:08 Bedside Glucose 102 183 93 91 Test 05/05/18 12:10 Bedside Glucose 132 Exam/Review of Systems Exam Vitals Vital Signs Date Temp Pulse Resp B/P (MAP) Pulse Ox O2 O2 Flow FiO2 Time Delivery Rate 05/05/18 98.2 59 18 125/55 98 Room Air 07:00 (78) Intake and Output 05/04/18 05/04/18 05/05/18 1515:00 23:00 07:00 IntakeIntake Total 370 ml 1100 ml OutputOutput Total 200 ml 400 ml 900 ml BalanceBalance 170 ml 700 ml -900 ml Results Results 24hrs Laboratory Tests Test 05/04/18 17:46 05/04/18 20:41 05/05/18 02:11 05/05/18 08:08 Bedside Glucose 102 183 93 91 Test 05/05/18 12:10 Bedside Glucose 132 Medications Medication Current Medications Diagnostic Test (Pha) (Accu-Chek) 1 ea 02 XX Last administered on 05/05/18 02:17; Admin Dose 1 EA; Start 04/27/18 at 02:00 Acetaminophen (Tylenol Tab) 650 mg Q6H PRN PO .PAIN 1-3 OR TEMP Last administered on 05/01/18 21:18; Admin Dose 650 MG; Start 04/26/18 at 21:00 Apixaban (Eliquis) 2.5 mg BID PO Last administered on 05/05/18 09:11; Admin Dose 2.5 MG; Start 04/26/18 at 21:00 Fenofibrate (Tricor) 145 mg DAILY PO Last administered on 05/05/18 09:11; Admin Dose 145 MG; Start 04/27/18 at 09:00 Ferrous Sulfate (Ferrous Sulfate (Ec)) 325 mg DAILY PO Last administered on 05/05/18 09:25; Admin Dose 325 MG; Start 04/27/18 at 09:00 Guaifenesin/ Codeine Phosphate (Robitussin Ac Liquid Cup) 5 ml Q4H PRN PO cough; Start 04/26/18 at 21:00 Acetaminophen/ Hydrocodone Bitart ([place] (5/325)) 1 tab Q6H PRN PO .PAIN 4-6 Last administered on 05/05/18 09:10; Admin Dose 1 TAB; Start 04/26/18 at 21:00 Insulin Aspart (Novolog Insulin Pen) (Adult SC Insulin - Mild Algorithm)... AC MEALS AND BEDTIME SC Last administered on 05/04/18 20:49; Admin Dose 1 UNIT; Start 04/26/18 at 21:00 Latanoprost (Xalatan) 1 drop QHS BOTH EYES Last administered on 05/04/18 20:48; Admin Dose 1 DROP; Start 04/26/18 at 21:00 Lidocaine (Lidoderm) 1 patch DAILY TD Last administered on 05/05/18 09:25; Admin Dose 1 PATCH; Start 04/27/18 at 09:00 Menthol/Methyl Salicylate (Jose Maxwell) 1 applic TID PRN TOP aching Last administered on 05/01/18 09:26; Admin Dose 1 APPLIC; Start 04/26/18 at 21:00 Ondansetron HCl (Zofran Inj) 4 mg Q6H PRN IV NAUSEA/VOMITING; Start 04/26/18 at 21:00 Miscellaneous Information 1 ea NOTE XX ; Start 04/26/18 at 21:00 Glucose (Glutose) 15 gm Q15M PRN PO DECREASED GLUCOSE; Start 04/26/18 at 21:00 Glucose (Glutose) 22.5 gm Q15M PRN PO DECREASED GLUCOSE; Start 04/26/18 at 21:00 Dextrose (D50w Syringe) 25 ml Q15M PRN IV DECREASED GLUCOSE; Start 04/26/18 at 21:00 Dextrose (D50w Syringe) 50 ml Q15M PRN IV DECREASED GLUCOSE; Start 04/26/18 at 21:00 Glucagon (Glucagen) 1 mg Q15M PRN IM DECREASED GLUCOSE; Start 04/26/18 at 21:00 Glucose (Glutose) 15 gm Q15M PRN BUCCAL DECREASED GLUCOSE; Start 04/26/18 at 21:00 Metformin HCl (Glucophage) 500 mg WITH BREAKFAST PO Last administered on 05/03/18 08:11; Admin Dose 500 MG; Start 04/27/18 at 07:35; Status Hold Multivitamins Therapeutic (Theragran) 1 tab DAILY PO Last administered on 05/05/18 09:25; Admin Dose 1 TAB; Start 04/27/18 at 11:30 Docusate Sodium (Colace Liquid Cup) 100 mg BID PO Last administered on 05/05/18 09:11; Admin Dose 100 MG; Start 04/30/18 at 21:00 Lactulose (Enulose) 20 gm DAILY PRN PO CONSTIPATION Last administered on 05/01/18 09:26; Admin Dose 20 GM; Start 05/01/18 at 09:00 Metoprolol Tartrate (Lopressor) 50 mg BID PO Last administered on 05/05/18at 09:12; Admin Dose 50 MG; Start 05/01/18 at 21:00 Gabapentin (Neurontin) 100 mg TID PO Last administered on 05/03/18 08:11; Admin Dose 100 MG; Start 05/02/18 at 13:00; Status Hold RUBY TREVINO NP May 05, 2018 15:01
[2018-05-05 20:23] VITALS: BP 141/65; PULSE 60; RESP 18
[2018-05-05] MEDS: LACTULOSE 30ML CUP PO PRN (21:00)
[2018-05-05] MEDS: LATANOPROST 0.005% 2.5 ML OPH BOTH EYES SCH (21:02)
[2018-05-06] MEDS: ACCU-CHEK XX SCH (02:00)
[2018-05-06 02:34] VITALS: BP 153/66; PULSE 67; RESP 18
[2018-05-06] MEDS: INSULIN ASPART [NOVOLOG] 3 ML PEN SC SCH ×4 (07:05→21:34)
[2018-05-06 07:30] VITALS: BP 96/46; PULSE 63; RESP 20
[2018-05-06] MEDS: APIXABAN 5 MG TABLET PO SCH ×2 (09:00→20:58)
[2018-05-06] MEDS: DOCUSATE SODIUM 10 MG/ML (10ML CUP) PO SCH ×2 (09:00→20:58)
[2018-05-06] MEDS: FENOFIBRATE 145 MG TAB PO SCH (09:00)
[2018-05-06] MEDS: FERROUS SULFATE (EC) 325 MG TAB PO SCH (09:00)
[2018-05-06] MEDS: METOPROLOL 50 MG TAB PO SCH ×2 (09:00→20:59)
[2018-05-06] MEDS: MULTIVITAMINS THERAPEUTIC TAB PO SCH (09:00)
[2018-05-06] MEDS: LIDOCAINE 5% PATCH TD SCH (09:01)
--- NOTE | 2018-05-06 13:00 | PN ---
Date/Time of Note Date/Time of Note DATE: 05/06/18 TIME: 12:59 Assessment/Plan VTE Prophylaxis Risk score (from Ns)>0 risk: 4 SCD applied (from Ns): No SCD contraindicated: patient refusal Pharmacological prophylaxis: apixaban Lines/Catheters IV Catheter Type (from [facility]): Urinary Cath still in place: No Assessment/Plan Hospital Course SUBJECTIVE: No acute distress. Participate with physical therapy well. OBJECTIVE: Vital signs-see below PHYSICAL EXAM: Constitutional: Frail looking, elderly female, not in acute distress psych: nl mood/affect, no complaints Head: atraumatic, normocephalic Eyes: nl conjunctiva, nl sclera ENMT: mucosa pink and moist, nl external ears & nose Neck: non-tender, supple Respiratory: clear to auscultation, normal air movement Cardiovascular: nl pulses, regular rate and rhythm Gastrointestinal: non-tender, soft, bowel sounds active in all 4 quadrants. Musculoskeletal/extremities: nl extremities to inspection, motor strength equal bilaterally, no focal deficit. Normal pulses,no cyanosis, no edema. Neurological: Alert oriented 3,nl speech, nl strength Skin: nl turgor ASSESSMENT/PLAN: An 87-year-old female with history of A. fib was on anticoagulation, hypertension, iron deficiency anemia, prediabetes, dyslipidemia, rectal bleed, status post colonoscopy, was transferred to rehab for decline in functional status... 1. Progressive debility -Continue rehab 2. Status post rectal bleed -s/p colonoscopy 04/21/18, showed int hemorrhoids, colon polyp removed,path showed tubular adenoma and diverticulosis -no further bleeding -stable H&H 3. History of atrial fibrillation, was on anticoagulation prior to admission, which likely contributed to #2. - patient has been cleared for Eliquis per GI and has been getting it. 4. Hypertension -needs more control, will increase BB to 50 bid. 5. Iron deficient anemia -cont. oral iron. 6. Dyslipidemia -On TriCor 7. Prediabetes with A1c 6.1. -Stable sugar -carb- controlled diet. 8. Mild RAMA, likely dehydration -stable w/not much fluctuation. DVT prophylaxis: Eliquis Patient was seen in collaboration with Result Diagram: 05/04/1831 05/04/18 0631 Results 24hrs Laboratory Tests Test 05/05/18 17:30 05/05/18 20:58 05/06/18 07:51 05/06/18 12:08 Bedside Glucose 122 151 126 118 Exam/Review of Systems Exam Vitals Vital Signs Date Temp Pulse Resp B/P (MAP) Pulse Ox O2 O2 Flow FiO2 Time Delivery Rate 05/06/18 97.6 63 20 96/46 (63) 98 Room Air 07:30 Intake and Output 05/05/18 05/05/18 05/06/18 1515:00 23:00 07:00 IntakeIntake Total 1300 ml OutputOutput Total 600 ml 300 ml BalanceBalance 700 ml -300 ml Results Results 24hrs Laboratory Tests Test 05/05/18 17:30 05/05/18 20:58 05/06/18 07:51 05/06/18 12:08 Bedside Glucose 122 151 126 118 Medications Medication Current Medications Diagnostic Test (Pha) (Accu-Chek) 1 ea 02 XX Last administered on 05/05/18 02:17; Admin Dose 1 EA; Start 04/27/18 at 02:00 Acetaminophen (Tylenol Tab) 650 mg Q6H PRN PO .PAIN 1-3 OR TEMP Last admin istered on 05/01/18 21:18; Admin Dose 650 MG; Start 04/26/18 at 21:00 Apixaban (Eliquis) 2.5 mg BID PO Last administered on 05/06/18 09:00; Admin Dose 2.5 MG; Start 04/26/18 at 21:00 Fenofibrate (Tricor) 145 mg DAILY PO Last administered on 05/06/18 09:00; Admin Dose 145 MG; Start 04/27/18 at 09:00 Ferrous Sulfate (Ferrous Sulfate (Ec)) 325 mg DAILY PO Last administered on 05/06/18 09:00; Admin Dose 325 MG; Start 04/27/18 at 09:00 Guaifenesin/ Codeine Phosphate (Robitussin Ac Liquid Cup) 5 ml Q4H PRN PO cough; Start 04/26/18 at 21:00 Acetaminophen/ Hydrocodone Bitart ([place] (5/325)) 1 tab Q6H PRN PO .PAIN 4-6 Last administered on 05/05/18 09:10; Admin Dose 1 TAB; Start 04/26/18 at 21:00 Insulin Aspart (Novolog Insulin Pen) (Adult SC Insulin - Mild Algorithm)... AC MEALS AND BEDTIME SC Last administered on 05/04/18 20:49; Admin Dose 1 UNIT; Start 04/26/18 at 21:00 Latanoprost (Xalatan) 1 drop QHS BOTH EYES Last administered on 05/05/18 21:02; Admin Dose 1 DROP; Start 04/26/18 at 21:00 Lidocaine (Lidoderm) 1 patch DAILY TD Last administered on 05/06/18 09:01; Admin Dose 1 PATCH; Start 04/27/18 at 09:00 Menthol/Methyl Salicylate (Jose Maxwell) 1 applic TID PRN TOP aching Last adm inistered on 05/01/18 09:26; Admin Dose 1 APPLIC; Start 04/26/18 at 21:00 Ondansetron HCl (Zofran Inj) 4 mg Q6H PRN IV NAUSEA/VOMITING; Start 04/26/18 at 21:00 Miscellaneous Information 1 ea NOTE XX ; Start 04/26/18 at 21:00 Glucose (Glutose) 15 gm Q15M PRN PO DECREASED GLUCOSE; Start 04/26/18 at 21:00 Glucose (Glutose) 22.5 gm Q15M PRN PO DECREASED GLUCOSE; Start 04/26/18 at 21:00 Dextrose (D50w Syringe) 25 ml Q15M PRN IV DECREASED GLUCOSE; Start 04/26/18 at 21:00 Dextrose (D50w Syringe) 50 ml Q15M PRN IV DECREASED GLUCOSE; Start 04/26/18 at 21:00 Glucagon (Glucagen) 1 mg Q15M PRN IM DECREASED GLUCOSE; Start 04/26/18 at 21:00 Glucose (Glutose) 15 gm Q15M PRN BUCCAL DECREASED GLUCOSE; Start 04/26/18 at 21:00 Metformin HCl (Glucophage) 500 mg WITH BREAKFAST PO Last administered on 05/03/18 08:11; Admin Dose 500 MG; Start 04/27/18 at 07:35; Status Hold Multivitamins Therapeutic (Theragran) 1 tab DAILY PO Last administered on 05/06/18 09:00; Admin Dose 1 TAB; Start 04/27/18 at 11:30 Docusate Sodium (Colace Liquid Cup) 100 mg BID PO Last administered on 05/06/18 09:00; Admin Dose 100 MG; Start 04/30/18 at 21:00 Lactulose (Enulose) 20 gm DAILY PRN PO CONSTIPATION Last administered on 05/05/18 21:00; Admin Dose 20 GM; Start 05/01/18 at 09:00 Metoprolol Tartrate (Lopressor) 50 mg BID PO Last administered on 05/05/18 21:01; Admin Dose 50 MG; Start 05/01/18 at 21:00 Gabapentin (Neurontin) 100 mg TID PO Last administered on 05/03/18 08:11; Admin Dose 100 MG; Start 05/02/18 at 13:00; Status Hold RUBY TREVINO NP May 06, 2018 13:00
--- NOTE | 2018-05-06 13:46 | PN ---
Date/Time of Note Date/Time of Note DATE: 05/06/18 TIME: 13:46 Subjective Feeling "much better" Objective Vital Signs Date Temp Pulse Resp B/P (MAP) Pulse Ox O2 O2 Flow FiO2 Time Delivery Rate 05/06/18 97.6 63 20 96/46 (63) 98 Room Air 07:30 Intake and Output 05/05/18 05/05/18 05/06/18 1515:00 23:00 07:00 IntakeIntake Total 1300 ml OutputOutput Total 600 ml 300 ml BalanceBalance 700 ml -300 ml Exam pulm-cta sba transfer and ambulation Results/Medications Result Diagram: 05/04/1863005/04/18 06 Results 24 hrs Laboratory Tests Test 05/05/18 17:30 05/05/18 20:58 05/06/18 07:51 05/06/18 12:08 Bedside Glucose 122 151 126 118 Medications Current Medications Diagnostic Test (Pha) (Accu-Chek) 1 ea 02 XX Last administered on 05/05/18at 02 :17; Admin Dose 1 EA; Start 04/27/18 at 02:00 Acetaminophen (Tylenol Tab) 650 mg Q6H PRN PO .PAIN 1-3 OR TEMP Last administered on 05/01/18 21:18; Admin Dose 650 MG; Start 04/26/18 at 21:00 Apixaban (Eliquis) 2.5 mg BID PO Last administered on 05/06/18 09:00; Admin Dose 2.5 MG; Start 04/26/18 at 21:00 Fenofibrate (Tricor) 145 mg DAILY PO Last administered on 05/06/18 09:00; Admin Dose 145 MG; Start 04/27/18 at 09:00 Ferrous Sulfate (Ferrous Sulfate (Ec)) 325 mg DAILY PO Last administered on 05/06/18 09:00; Admin Dose 325 MG; Start 04/27/18 at 09:00 Guaifenesin/ Codeine Phosphate (Robitussin Ac Liquid Cup) 5 ml Q4H PRN PO cough; Start 04/26/18 at 21:00 Acetaminophen/ Hydrocodone Bitart ([place] (5/325)) 1 tab Q6H PRN PO .PAIN 4-6 Last administered on 05/05/18at 09:10; Admin Dose 1 TAB; Start 04/26/18 at 21:00 Insulin Aspart (Novolog Insulin Pen) (Adult SC Insulin - Mild Algorithm)... AC MEALS AND BEDTIME SC Last administered on 05/04/18 20:49; Admin Dose 1 UNIT; Start 04/26/18 at 21:00 Latanoprost (Xalatan) 1 drop QHS BOTH EYES Last administered on 05/05/18 21:02; Admin Dose 1 DROP; Start 04/26/18 at 21:00 Lidocaine (Lidoderm) 1 patch DAILY TD Last administered on 05/06/18at 09:01; Admin Dose 1 PATCH; Start 04/27/18 at 09:00 Menthol/Methyl Salicylate (Jose Maxwell) 1 applic TID PRN TOP aching Last administered on 05/01/18 09:26; Admin Dose 1 APPLIC; Start 04/26/18 at 21:00 Ondansetron HCl (Zofran Inj) 4 mg Q6H PRN IV NAUSEA/VOMITING; Start 04/26/18 at 21:00 Miscellaneous Information 1 ea NOTE XX ; Start 04/26/18 at 21:00 Glucose (Glutose) 15 gm Q15M PRN PO DECREASED GLUCOSE; Start 04/26/18 at 21:00 Glucose (Glutose) 22.5 gm Q15M PRN PO DECREASED GLUCOSE; Start 04/26/18 at 21:00 Dextrose (D50w Syringe) 25 ml Q15M PRN IV DECREASED GLUCOSE; Start 04/26/18 at 21:00 Dextrose (D50w Syringe) 50 ml Q15M PRN IV DECREASED GLUCOSE; Start 04/26/18 at 21:00 Glucagon (Glucagen) 1 mg Q15M PRN IM DECREASED GLUCOSE; Start 04/26/18 at 21:00 Glucose (Glutose) 15 gm Q15M PRN BUCCAL DECREASED GLUCOSE; Start 04/26/18 at 21:00 Metformin HCl (Glucophage) 500 mg WITH BREAKFAST PO Last administered on 05/03/18at 08:11; Admin Dose 500 MG; Start 04/27/18 at 07:35; Status Hold Multivitamins Therapeutic (Theragran) 1 tab DAILY PO Last administered on 05/06/18at 09:00; Admin Dose 1 TAB; Start 04/27/18 at 11:30 Docusate Sodium (Colace Liquid Cup) 100 mg BID PO Last administered on 05/06/18 09:00; Admin Dose 100 MG; Start 04/30/18 at 21:00 Lactulose (Enulose) 20 gm DAILY PRN PO CONSTIPATION Last administered on 05/05/18 21:00; Admin Dose 20 GM; Start 05/01/18 at 09:00 Metoprolol Tartrate (Lopressor) 50 mg BID PO Last administered on 05/05/18 21:01; Admin Dose 50 MG; Start 05/01/18 at 21:00 Gabapentin (Neurontin) 100 mg TID PO Last administered on 05/03/18 08:11; Admin Dose 100 MG; Start 05/02/18 at 13:00; Status Hold Assessment/Plan Additional Assessment/Plan Rehab- Tox Encephalopathy, Debility secondary to gastrointestinal bleed with div erticulitis and hemorrhoids. Activity tolerance significantly improved, continue plan Atrial fibrillation. Hypertension. Chronic kidney disease. Hyperlipidemia. Diabetes mellitus. Chronic obstructive pulmonary disease. MARKUS BENSON MD May 06, 2018 13:46
[2018-05-06 14:00] VITALS: BP 146/60; PULSE 60; RESP 18
--- NOTE | 2018-05-06 19:04 | PN ---
DATE: 05/06/2018 PSYCHOLOGY -- INDIVIDUAL SESSION -- [id number] This is a followup on a patient who was seen last week. The patient was seen up in her wheelchair. The patient was feeling like she is making progress and is ready to leave the program soon. The kane ent is scheduled for discharge on Friday. The patient has made a good deal of progress, but she stil l needs some care at home. The patient is trying to figure how she is going to work with this in reg teodoro to dealing with care that she needs and her daughter's returning to work. The patient's mood has improved and she is feeling like she has gotten a great deal out of being in the program. Dictated By: ELISE VAZQUEZ PHD KASH/TORIN Conf#: [id number] DID#: [id number] CC: GLADIS SLATER MD;*End*
[2018-05-06 19:46] VITALS: BP 131/63; PULSE 65; RESP 18
[2018-05-06] MEDS: HYDROCODONE/APAP (5/325) TAB PO PRN (21:01)
[2018-05-06] MEDS: LATANOPROST 0.005% 2.5 ML OPH BOTH EYES SCH (21:35)
[2018-05-07 02:00] VITALS: BP 127/65; PULSE 62; RESP 18
[2018-05-07] MEDS: ACCU-CHEK XX SCH (02:00)
[2018-05-07] MEDS: INSULIN ASPART [NOVOLOG] 3 ML PEN SC SCH ×4 (07:05→21:00)
[2018-05-07 07:30] VITALS: BP 134/58; PULSE 60; RESP 18
[2018-05-07] MEDS: MULTIVITAMINS THERAPEUTIC TAB PO SCH (08:59)
[2018-05-07] MEDS: METOPROLOL 50 MG TAB PO SCH ×2 (08:59→21:00)
[2018-05-07] MEDS: FENOFIBRATE 145 MG TAB PO SCH (08:59)
[2018-05-07] MEDS: DOCUSATE SODIUM 10 MG/ML (10ML CUP) PO SCH ×2 (09:00→21:41)
[2018-05-07] MEDS: APIXABAN 5 MG TABLET PO SCH ×2 (09:00→21:42)
[2018-05-07] MEDS: FERROUS SULFATE (EC) 325 MG TAB PO SCH (09:00)
[2018-05-07] MEDS: LIDOCAINE 5% PATCH TD SCH (09:01)
--- NOTE | 2018-05-07 11:26 | PN ---
Date/Time of Note Date/Time of Note DATE: 05/07/18 TIME: 11:25 Subjective Doing well Objective Vital Signs Date Temp Pulse Resp B/P (MAP) Pulse Ox O2 O2 Flow FiO2 Time Delivery Rate 05/07/18 97.8 60 18 134/58 97 Room Air 07:30 (83) Intake and Output 05/06/18 05/06/18 05/07/18 1515:00 23:00 07:00 IntakeIntake Total 1580 ml 1050 ml BalanceBalance 1580 ml 1050 ml Exam pulm-cta sba ambulation Results/Medications Result Diagram: 05/04/1863005/04/18630 Results 24 hrs Laboratory Tests Test 05/06/18 12:08 05/06/18 17:20 05/06/18 21:12 05/07/18 01:18 Bedside Glucose 118 115 192 108 Test 05/07/18 07:41 Bedside Glucose 112 Medications Current Medications Diagnostic Test (Pha) (Accu-Chek) 1 ea 02 XX Last administered on 05/05/18at 02:17; Admin Dose 1 EA; Start 04/27/18 at 02:00 Acetaminophen (Tylenol Tab) 650 mg Q6H PRN PO .PAIN 1-3 OR TEMP Last administered on 05/01/18 21:18; Admin Dose 650 MG; Start 04/26/18 at 21:00 Apixaban (Eliquis) 2.5 mg BID PO Last administered on 05/07/18 09:00; Admin Dose 2.5 MG; Start 04/26/18 at 21:00 Fenofibrate (Tricor) 145 mg DAILY PO Last administered on 05/07/18at 08:59; Admin Dose 145 MG; Start 04/27/18 at 09:00 Ferrous Sulfate (Ferrous Sulfate (Ec)) 325 mg DAILY PO Last administered on 05/07/18 09:00; Admin Dose 325 MG; Start 04/27/18 at 09:00 Guaifenesin/ Codeine Phosphate (Robitussin Ac Liquid Cup) 5 ml Q4H PRN PO cough; Start 04/26/18 at 21:00 Acetaminophen/ Hydrocodone Bitart ([place] (5/325)) 1 tab Q6H PRN PO .PAIN 4-6 Last administered on 05/06/18 21:01; Admin Dose 1 TAB; Start 04/26/18 at 21:00 Insulin Aspart (Novolog Insulin Pen) (Adult SC Insulin - Mild Algorithm)... AC MEALS AND BEDTIME SC Last administered on 05/06/18 21:34; Admin Dose 1 UNIT; Start 04/26/18 at 21:00 Latanoprost (Xalatan) 1 drop QHS BOTH EYES Last administered on 05/06/18 21:35; Admin Dose 1 DROP; Start 04/26/18 at 21:00 Lidocaine (Lidoderm) 1 patch DAILY TD Last administered on 05/07/18 09:01; Admin Dose 1 PATCH; Start 04/27/18 at 09:00 Menthol/Methyl Salicylate (Jose Maxwell) 1 applic TID PRN TOP aching Last administered on 05/01/18 09:26; Admin Dose 1 APPLIC; Start 04/26/18 at 21:00 Ondansetron HCl (Zofran Inj) 4 mg Q6H PRN IV NAUSEA/VOMITING; Start 04/26/18 at 21:00 Miscellaneous Information 1 ea NOTE XX ; Start 04/26/18 at 21:00 Glucose (Glutose) 15 gm Q15M PRN PO DECREASED GLUCOSE; Start 04/26/18 at 21:00 Glucose (Glutose) 22.5 gm Q15M PRN PO DECREASED GLUCOSE; Start 04/26/18 at 21:00 Dextrose (D50w Syringe) 25 ml Q15M PRN IV DECREASED GLUCOSE; Start 04/26/18 at 21:00 Dextrose (D50w Syringe) 50 ml Q15M PRN IV DECREASED GLUCOSE; Start 04/26/18 at 21:00 Glucagon (Glucagen) 1 mg Q15M PRN IM DECREASED GLUCOSE; Start 04/26/18 at 21:00 Glucose (Glutose) 15 gm Q15M PRN BUCCAL DECREASED GLUCOSE; Start 04/26/18 at 21:00 Metformin HCl (Glucophage) 500 mg WITH BREAKFAST PO Last administered on 05/03/18 08:11; Admin Dose 500 MG; Start 04/27/18 at 07:35; Status Hold Multivitamins Therapeutic (Theragran) 1 tab DAILY PO Last administered on 05/07/18at 08:59; Admin Dose 1 TAB; Start 04/27/18 at 11:30 Docusate Sodium (Colace Liquid Cup) 100 mg BID PO Last administered on 05/07/18 09:00; Admin Dose 100 MG; Start 04/30/18 at 21:00 Lactulose (Enulose) 20 gm DAILY PRN PO CONSTIPATION Last administered on 05/05/18 21:00; Admin Dose 20 GM; Start 05/01/18 at 09:00 Metoprolol Tartrate (Lopressor) 50 mg BID PO Last administered on 05/07/18 08:59; Admin Dose 50 MG; Start 05/01/18 at 21:00 Gabapentin (Neurontin) 100 mg TID PO Last administered on 05/03/18 08:11; Admin Dose 100 MG; Start 05/02/18 at 13:00; Status Hold Assessment/Plan Additional Assessment/Plan Rehab- Tox Encephalopathy, Debility secondary to gastrointestinal bleed with diverticulitis and hemorrhoids. progressing well, anticipate home tomorrow Dysphagia- tolerating diet Atrial fibrillation. Hypertension. Chronic kidney disease. Hyperlipidemia. Diabetes mellitus. Chronic obstructive pulmonary disease. MARKUS BENSON MD May 07, 2018 11:26
--- NOTE | 2018-05-07 12:19 | PN ---
Date/Time of Note Date/Time of Note DATE: 05/07/18 TIME: 12:18 Assessment/Plan VTE Prophylaxis Risk score (from Nsg)>0 risk: 4 SCD applied (from Nsg): Yes Pharmacological prophylaxis: apixaban Lines/Catheters IV Catheter Type (from Nrs): Urinary Cath still in place: No Assessment/Plan Hospital Course SUBJECTIVE: No acute distress. Participate with physical therapy well. OBJECTIVE: Vital signs-see below PHYSICAL EXAM: Constitutional: Frail looking, elderly female, not in acute distress psych: nl mood/affect, no complaints Head: atraumatic, normocephalic Eyes: nl conjunctiva, nl sclera ENMT: mucosa pink and moist, nl external ears & nose Neck: non-tender, supple Respiratory: clear to auscultation, normal air movement Cardiovascular: nl pulses, regular rate and rhythm Gastrointestinal: non-tender, soft, bowel sounds active in all 4 quadrants. Musculoskeletal/extremities: nl extremities to inspection, motor strength equal bilaterally, no focal deficit. Normal pulses,no cyanosis, no edema. Neurological: Alert oriented 3,nl speech, nl strength Skin: nl turgor ASSESSMENT/PLAN: An 87-year-old female with history of A. fib was on anticoagulation, hypertension, iron deficiency anemia, prediabetes, dyslipidemia, rectal bleed, status post colonoscopy, was transferred to rehab for decline in functional status... 1. Progressive debility -Continue rehab 2. Status post rectal bleed -s/p colonoscopy 04/21/18, showed int hemorrhoids, colon polyp removed,path showed tubular adenoma and diverticulosis -no further bleeding -stable H&H 3. History of atrial fibrillation, was on anticoagulation prior to admission, which likely contributed to #2. - patient has been cleared for Eliquis per GI and has been getting it. 4. Hypertension -needs more control, will increase BB to 50 bid. 5. Iron deficient anemia -cont. oral iron. 6. Dyslipidemia -On TriCor 7. Prediabetes with A1c 6.1. -Stable sugar -carb- controlled diet. 8. Mild RAMA, likely dehydration -stable w/not much fluctuation. DVT prophylaxis: Eliquis agree w/ dc planning in am. cont.current medication regimen including anticoagulation on dc. Patient was seen in collaboration with Result Diagram: 05/04/1831 05/04/18 0631 Results 24hrs Laboratory Tests Test 05/06/18 17:20 05/06/18 21:12 05/07/18 01:18 05/07/18 07:41 Bedside Glucose 115 192 108 112 Test 05/07/18 11:47 Bedside Glucose 133 Exam/Review of Systems Exam Vitals Vital Signs Date Temp Pulse Resp B/P (MAP) Pulse Ox O2 O2 Flow FiO2 Time Delivery Rate 05/07/18 97.8 60 18 134/58 97 Room Air 07:30 (83) Intake and Output 05/06/18 05/06/18 05/07/18 1515:00 23:00 07:00 IntakeIntake Total 1580 ml 1050 ml BalanceBalance 1580 ml 1050 ml Results Results 24hrs Laboratory Tests Test 05/06/18 17:20 05/06/18 21:12 05/07/18 01:18 05/07/18 07:41 Bedside Glucose 115 192 108 112 Test 05/07/18 11:47 Bedside Glucose 133 Medications Medication Current Medications Diagnostic Test (Pha) (Accu-Chek) 1 ea 02 XX Last administered on 05/05/18at 0 2:17; Admin Dose 1 EA; Start 04/27/18 at 02:00 Acetaminophen (Tylenol Tab) 650 mg Q6H PRN PO .PAIN 1-3 OR TEMP Last administered on 05/01/18at 21:18; Admin Dose 650 MG; Start 04/26/18 at 21:00 Apixaban (Eliquis) 2.5 mg BID PO Last administered on 05/07/18at 09:00; Admin Dose 2.5 MG; Start 04/26/18 at 21:00 Fenofibrate (Tricor) 145 mg DAILY PO Last administered on 05/07/18at 08:59; Admin Dose 145 MG; Start 04/27/18 at 09:00 Ferrous Sulfate (Ferrous Sulfate (Ec)) 325 mg DAILY PO Last administered on 05/07/18at 09:00; Admin Dose 325 MG; Start 04/27/18 at 09:00 Guaifenesin/ Codeine Phosphate (Robitussin Ac Liquid Cup) 5 ml Q4H PRN PO cough; Start 04/26/18 at 21:00 Acetaminophen/ Hydrocodone Bitart ([place] (5/325)) 1 tab Q6H PRN PO .PAIN 4-6 Last administered on 05/06/18 21:01; Admin Dose 1 TAB; Start 04/26/18 at 21:00 Insulin Aspart (Novolog Insulin Pen) (Adult SC Insulin - Mild Algorithm)... AC MEALS AND BEDTIME SC Last administered on 05/06/18 21:34; Admin Dose 1 UNIT; Start 04/26/18 at 21:00 Latanoprost (Xalatan) 1 drop QHS BOTH EYES Last administered on 05/06/18 21:35; Admin Dose 1 DROP; Start 04/26/18 at 21:00 Lidocaine (Lidoderm) 1 patch DAILY TD Last administered on 05/07/18 09:01; Admin Dose 1 PATCH; Start 04/27/18 at 09:00 Menthol/Methyl Salicylate (Jose Maxwell) 1 applic TID PRN TOP aching Last administered on 05/01/18 09:26; Admin Dose 1 APPLIC; Start 04/26/18 at 21:00 Ondansetron HCl (Zofran Inj) 4 mg Q6H PRN IV NAUSEA/VOMITING; Start 04/26/18 at 21:00 Miscellaneous Information 1 ea NOTE XX ; Start 04/26/18 at 21:00 Glucose (Glutose) 15 gm Q15M PRN PO DECREASED GLUCOSE; Start 04/26/18 at 21:00 Glucose (Glutose) 22.5 gm Q15M PRN PO DECREASED GLUCOSE; Start 04/26/18 at 21:00 Dextrose (D50w Syringe) 25 ml Q15M PRN IV DECREASED GLUCOSE; Start 04/26/18 at 21:00 Dextrose (D50w Syringe) 50 ml Q15M PRN IV DECREASED GLUCOSE; Start 04/26/18 at 21:00 Glucagon (Glucagen) 1 mg Q15M PRN IM DECREASED GLUCOSE; Start 04/26/18 at 21:00 Glucose (Glutose) 15 gm Q15M PRN BUCCAL DECREASED GLUCOSE; Start 04/26/18 at 21:00 Metformin HCl (Glucophage) 500 mg WITH BREAKFAST PO Last administered on 05/03/18 08:11; Admin Dose 500 MG; Start 04/27/18 at 07:35; Status Hold Multivitamins Therapeutic (Theragran) 1 tab DAILY PO Last administered on 05/07/18 08:59; Admin Dose 1 TAB; Start 04/27/18 at 11:30 Docusate Sodium (Colace Liquid Cup) 100 mg BID PO Last administered on 05/07/18at 09:00; Admin Dose 100 MG; Start 04/30/18 at 21:00 Lactulose (Enulose) 20 gm DAILY PRN PO CONSTIPATION Last administered on 05/05/18at 21:00; Admin Dose 20 GM; Start 05/01/18 at 09:00 Metoprolol Tartrate (Lopressor) 50 mg BID PO Last administered on 05/07/18at 08:59; Admin Dose 50 MG; Start 05/01/18 at 21:00 Gabapentin (Neurontin) 100 mg TID PO Last administered on 05/03/18at 08:11; Admin Dose 100 MG; Start 05/02/18 at 13:00; Status Hold RUBY TREVINO NP May 07, 2018 12:19
[2018-05-07 14:00] VITALS: BP 104/50; PULSE 60; RESP 18
[2018-05-07 19:35] VITALS: BP 102/50; PULSE 66; RESP 18
[2018-05-07] MEDS: LATANOPROST 0.005% 2.5 ML OPH BOTH EYES SCH (21:41)
[2018-05-08] MEDS: ACCU-CHEK XX SCH (02:00)
[2018-05-08 02:05] VITALS: BP 122/57; PULSE 62; RESP 18
[2018-05-08 07:00] VITALS: BP 113/54; PULSE 69; RESP 18
[2018-05-08] MEDS: INSULIN ASPART [NOVOLOG] 3 ML PEN SC SCH ×2 (08:00→12:02)
[2018-05-08] MEDS: MULTIVITAMINS THERAPEUTIC TAB PO SCH (08:53)
[2018-05-08] MEDS: FERROUS SULFATE (EC) 325 MG TAB PO SCH (08:53)
[2018-05-08] MEDS: FENOFIBRATE 145 MG TAB PO SCH (08:53)
[2018-05-08] MEDS: APIXABAN 5 MG TABLET PO SCH (08:53)
[2018-05-08] MEDS: METOPROLOL 50 MG TAB PO SCH (08:54)
[2018-05-08] MEDS: HYDROCODONE/APAP (5/325) TAB PO PRN ×2 (08:54→12:46)
[2018-05-08] MEDS: DOCUSATE SODIUM 10 MG/ML (10ML CUP) PO SCH (08:54)
[2018-05-08] MEDS: LIDOCAINE 5% PATCH TD SCH (08:55)
[2018-05-08] MEDS: LACTULOSE 30ML CUP PO PRN (09:02)
--- NOTE | 2018-05-08 12:18 | PN ---
Date/Time of Note Date/Time of Note DATE: 05/08/18 TIME: 12:17 Assessment/Plan VTE Prophylaxis Risk score (from Ns)>0 risk: 4 SCD applied (from Ns): Yes Pharmacological prophylaxis: apixaban Lines/Catheters IV Catheter Type (from Nrs): Urinary Cath still in place: No Assessment/Plan Hospital Course SUBJECTIVE: Doing well. For discharge today. OBJECTIVE: Vital signs-see below PHYSICAL EXAM: Constitutional: Frail looking, elderly female, not in acute distress psych: nl mood/affect, no complaints Head: atraumatic, normocephalic Eyes: nl conjunctiva, nl sclera ENMT: mucosa pink and moist, nl external ears & nose Neck: non-tender, supple Respiratory: clear to auscultation, normal air movement Cardiovascular: nl pulses, regular rate and rhythm Gastrointestinal: non-tender, soft, bowel sounds active in all 4 quadrants. Musculoskeletal/extremities: nl extremities to inspection, motor strength equal bilaterally, no focal deficit. Normal pulses,no cyanosis, no edema. Neurological: Alert oriented 3,nl speech, nl strength Skin: nl turgor ASSESSMENT/PLAN: An 87-year-old female with history of A. fib was on anticoagulation, hypertension, iron deficiency anemia, prediabetes, dyslipid emia, rectal bleed, status post colonoscopy, was transferred to rehab for decline in functional status... 1. Progressive debility -Continue rehab 2. Status post rectal bleed -s/p colonoscopy 04/21/18, showed int hemorrhoids, colon polyp removed,path showed tubular adenoma and diverticulosis -no further bleeding -stable H&H 3. History of atrial fibrillation, was on anticoagulation prior to admission, which likely contributed to #2. - patient has been cleared for Eliquis per GI and has been getting it. 4. Hypertension -Stable. Continue beta-blockers. 5. Iron deficient anemia -cont. oral iron. 6. Dyslipidemia -On TriCor 7. Prediabetes with A1c 6.1. -Stable sugar -carb- controlled diet. 8. Mild RAMA, likely dehydration -stable w/not much fluctuation. DVT prophylaxis: Eliquis Agree with discharge plan today.. cont.current medication regimen including anticoagulation on dc. Patient was seen in collaboration with Result Diagram: 05/04/1831 05/04/18 0631 Results 24hrs Laboratory Tests Test 05/07/18 17:34 05/07/18 21:40 05/08/18 07:49 05/08/18 11:34 Bedside Glucose 107 173 109 146 Exam/Review of Systems Exam Vitals Vital Signs Date Temp Pulse Resp B/P (MAP) Pulse Ox O2 O2 Flow FiO2 Time Delivery Rate 05/08/18 97.6 69 18 113/54 97 Room Air 07:00 (73) Intake and Output 05/07/18 05/07/18 05/08/18 1515:00 23:00 07:00 IntakeIntake Total 200 ml 840 ml 800 ml BalanceBalance 200 ml 840 ml 800 ml Results Results 24hrs Laboratory Tests Test 05/07/18 17:34 05/07/18 21:40 05/08/18 07:49 05/08/18 11:34 Bedside Glucose 107 173 109 146 Medications Medication Current Medications Diagnostic Test (Pha) (Accu-Chek) 1 ea 02 XX Last administered on 05/05/18 02:17; Admin Dose 1 EA; Start 04/27/18 at 02:00 Acetaminophen (Tylenol Tab) 650 mg Q6H PRN PO .PAIN 1-3 OR TEMP Last administered on 05/01/18 21:18; Admin Dose 650 MG; Start 04/26/18 at 21:00 Apixaban (Eliquis) 2.5 mg BID PO Last administered on 05/08/18 08:53; Admin Dose 2.5 MG; Start 04/26/18 at 21:00 Fenofibrate (Tricor) 145 mg DAILY PO Last administered on 05/08/18 08:53; Admin Dose 145 MG; Start 04/27/18 at 09:00 Ferrous Sulfate (Ferrous Sulfate (Ec)) 325 mg DAILY PO Last administered on 05/08/18 08:53; Admin Dose 325 MG; Start 04/27/18 at 09:00 Guaifenesin/ Codeine Phosphate (Robitussin Ac Liquid Cup) 5 ml Q4H PRN PO cough; Start 04/26/18 at 21:00 Acetaminophen/ Hydrocodone Bitart ([place] (5/325)) 1 tab Q6H PRN PO .PAIN 4-6 Last administered on 05/08/18 08:54; Admin Dose 1 TAB; Start 04/26/18 at 21:00 Insulin Aspart (Novolog Insulin Pen) (Adult SC Insulin - Mild Algorithm)... AC MEALS AND BEDTIME SC Last administered on 05/08/18 12:02; Admin Dose 1 UNIT; Start 04/26/18 at 21:00 Latanoprost (Xalatan) 1 drop QHS BOTH EYES Last administered on 05/07/18 21:41; Admin Dose 1 DROP; Start 04/26/18 at 21:00 Lidocaine (Lidoderm) 1 patch DAILY TD Last administered on 05/08/18 08:55; Admin Dose 1 PATCH; Start 04/27/18 at 09:00 Menthol/Methyl Salicylate (Jose Maxwell) 1 applic TID PRN TOP aching Last administered on 05/01/18 09:26; Admin Dose 1 APPLIC; Start 04/26/18 at 21:00 Ondansetron HCl (Zofran Inj) 4 mg Q6H PRN IV NAUSEA/VOMITING; Start 04/26/18 at 21:00 Miscellaneous Information 1 ea NOTE XX ; Start 04/26/18 at 21:00 Glucose (Glutose) 15 gm Q15M PRN PO DECREASED GLUCOSE; Start 04/26/18 at 21:00 Glucose (Glutose) 22.5 gm Q15M PRN PO DECREASED GLUCOSE; Start 04/26/18 at 21:00 Dextrose (D50w Syringe) 25 ml Q15M PRN IV DECREASED GLUCOSE; Start 04/26/18 at 21:00 Dextrose (D50w Syringe) 50 ml Q15M PRN IV DECREASED GLUCOSE; Start 04/26/18 at 21:00 Glucagon (Glucagen) 1 mg Q15M PRN IM DECREASED GLUCOSE; Start 04/26/18 at 21:00 Glucose (Glutose) 15 gm Q15M PRN BUCCAL DECREASED GLUCOSE; Start 04/26/18 at 21:00 Metformin HCl (Glucophage) 500 mg WITH BREAKFAST PO Last administered on 05/03/18 08:11; Admin Dose 500 MG; Start 04/27/18 at 07:35; Status Hold Multivitamins Therapeutic (Theragran) 1 tab DAILY PO Last administered on 05/08/18 08:53; Admin Dose 1 TAB; Start 04/27/18 at 11:30 Docusate Sodium (Colace Liquid Cup) 100 mg BID PO Last administered on 05/08/18 08:54; Admin Dose 100 MG; Start 04/30/18 at 21:00 Lactulose (Enulose) 20 gm DAILY PRN PO CONSTIPATION Last administered on 09:02; Admin Dose 20 GM; Start 05/01/18 at 09:00 Metoprolol Tartrate (Lopressor) 50 mg BID PO Last administered on 05/07/18 08:59; Admin Dose 50 MG; Start 05/01/18 at 21:00 Gabapentin (Neurontin) 100 mg TID PO Last administered on 05/03/18 08:11; Admin Dose 100 MG; Start 05/02/18 at 13:00; Status Hold RUBY TREVINO NP May 08, 2018 12:18
--- NOTE | 2018-05-09 09:42 | DS ---
Date/Time of Note Date/Time of Note DATE: 05/09/18 TIME: 09:38 Discharge Summary Admission/Discharge Info Admit Date/Time Apr 26, 2018 at 19:59 Discharge Date/Time May 08, 2018 at 13:00 Discharge Diagnosis 1. Toxic Metabolic Encephalopathy, improved 2. Debility secondary to gastrointestinal bleed with diverticulitis and hemorrhoids; improved 3. Dysphagia, improved 4. Atrial fibrillation. 5. Hypertension. 6. Diabetes mellitus. 7. Chronic obstructive pulmonary disease. 8. Urinary retention, improved 9. Chronic Kidney Disease 10. Diabetes Mellitus 11. Improvements in self-care and mobility and cognition Patient Condition: Good Hospital Course The patient was admitted for comprehensive interdisciplinary rehabilitation and made steady functional gains from a Mod level to a SBA level for self care tasks and mobility including ambulating over 150 feet with the use of a FWW. Patient's cognition also improved during the course of rehabilitation, and patient returned to baseline cognition by discharge. Patient had urniary retention on admission, which also imprved with bladder program. Patient is being discharged home with the recommendation of home health PT, OT and RN follow up. The DC meds are per the medication reconciliation sheet. The discharge equipment recommendations include: FWW, BSC, shower chair. The patient will follow up with PMD upon DC. Home Meds Reported Medications Ergocalciferol (Vitamin D2) (VITAMIN D2) 50,000 Unit Capsule, 18058 UNIT PO, CAP Take 1 Capsule by mouth every 1st of the Month 11/26/17 Metoprolol Tartrate* (Lopressor*) 25 Mg Tab, 25 MG PO BID, #60 TAB 11/26/17 Albuterol Sulfate* (Ventolin HFA*) 18 Gm Hfa.aer.ad, 1 PUFF INHALATION Q6H PRN for NEEDED, #1 INHALER 12/19/16 Vit A/Vit C/Vit E/Zinc/Copper (Preservision Areds Softgel) 1 Each Capsule, 1 EACH PO BID, CAP 12/19/16 Travoprost* (Travatan*) 0.004%-2.5 Ml Opht, 1 DROP BOTH EYES QHS, #1 BOTTLE 12/19/16 Metformin Hcl* (Metformin Hcl*) 500 Mg Tablet, 500 MG PO WITH BREAKFAST DINNE, #60 TAB 12/19/16 Fenofibrate, Micronized* (Fenofibrate*) 160 Mg Tablet, 160 MG PO DAILY, TAB 12/19/16 Apixaban* (Eliquis*) 2.5 Mg Tablet, 2.5 MG PO BID, TAB 12/19/16 Primary Care Provider Not On Staff Doctor Pending Labs Laboratory Tests Test 05/08/18 11:34 Bedside Glucose 146 mg/dL (70-220) MARKUS BENSON MD May 09, 2018 09:42
== END 2018-05-08 13:00 | disposition home health service (06) | DRG 92 ==
LOC: VRC 19:59
PROVIDERS: ADMIT Internal Medicine Pulmonary Disease; ATTEND Internal Medicine Pulmonary Disease
DX: G92 Toxic encephalopathy (principal); N17.9 Acute kidney failure, unspecified; K57.92 Diverticulitis of intestine, part unspecified, without perforation or abscess without bleeding; R54 Age-related physical debility; R53.81 Other malaise; F06.31 Mood disorder due to known physiological condition with depressive features; F06.8 Other specified mental disorders due to known physiological condition; R13.10 Dysphagia, unspecified; I48.91 Unspecified atrial fibrillation; E11.9 Type 2 diabetes mellitus without complications; J44.9 Chronic obstructive pulmonary disease, unspecified; R33.9 Retention of urine, unspecified; I12.9 Hypertensive chronic kidney disease with stage 1 through stage 4 chronic kidney disease, or unspecified chronic kidney disease; N18.9 Chronic kidney disease, unspecified; D50.9 Iron deficiency anemia, unspecified; R73.03 Prediabetes; E86.0 Dehydration; K64.9 Unspecified hemorrhoids
CPT/HCPCS: 80048; 80053; 81001; 81003; 82962; 83735; 84100; 85025; 87081; 87086; 92507; 92523; 97110; 97112; 97116; 97150; 97163; 97530; 97535; 97542; A4310; J1815; J7030; J7040